=== PATIENT | male | born 1940 | race Caucasian/White ===

== ENCOUNTER 2019-07-26 08:39 | Inpatient (IN) ==
[2019-07-26 08:53] LABS: Microscopic, Urine URINE MICROSCOPIC (MICROSCOPIC)
--- NOTE | 2019-07-26 08:59 | Emergency Department Note ---
ED Disposition Clinical Impression: Small bowel obstruction Disposition: Admitted As Inpatient Condition on Discharge: Good Referrals: Ortiz Lockhart MD [Primary Care Provider] - - Critical Care Critical Care Time: No Attestation: On 07/26/19, the high probability of a clinically significant, sudden or life threatening deterioration of the following system(s) required my full and direct attention, intervention and personal management. The time I documented below is in addition to time spent performing reported procedures but includes the following listed in this critical care notation. Medical Decision Making - Medical Records Medical records reviewed: Yes: I reviewed the patient's medical records. - Robert Inquiry Pt receiving controlled substance: No Vital Signs: 07/26/19 08:46 07/26/19 08:50 07/26/19 11:18 Temperature 97.8 F 97.8 F Temperature Source Oral Oral Pulse Rate [Left Radial] 63 63 Respiratory Rate 16 16 Blood Pressure [Right Arm] 149/75 H 149/75 H 157/69 H Blood Pressure Mean [Right Arm] 99 99 98 Blood Pressure Source [Right Arm] Automatic Cuff Automatic Cuff Blood Pressure Position [Right Arm] Sitting Sitting Sitting 02 Sat by Pulse Oximetry 98 98 Oxygen Delivery Method Room Air Room Air - Lab Data Lab results reviewed: Yes: I reviewed the patient's lab results. Lab Results 07/26/19 08:49: Urine Color Yellow, Urine Appearance Clear, Urine pH 8.0, Ur Specific [place] 1.020, Urine Protein Negative, Urine Glucose (UA) Negative, Urine Ketones Negative, Urine Blood Negative, Urine Nitrate Negative, Urine Bilirubin Negative, Urine Urobilinogen 0.2, Ur Leukocyte Esterase Negative, Urine RBC None, Urine WBC None, Ur Squamous Epith Cells Occasional, Urine Bacteria Trace 07/26/19 09:20: WBC 5.4, RBC 4.31 L, Hgb 13.4 L, Hct 44.4, MCV 103.0 H, MCH 31.0, MCHC 30.1 L, RDW 15.5, Plt Count 271, MPV 7.7, Neut % (Auto) 55.9, Lymph % (Auto) 33.6, [place] % (Auto) 7.3, Eos % (Auto) 2.6, Baso % (Auto) 0.6, Neut # (Auto) 3.0, Lymph # (Auto) 1.8, [place] # (Auto) 0.4, Eos # (Auto) 0.1, Baso # (Auto) 0.0 07/26/19 09:20: Sodium 139, Potassium 4.1, Chloride 102, Carbon Dioxide 27, Anion Gap 14.1, BUN 19 H, Creatinine 1.07, Estimated Creat Clear 68, Estimated GFR 67, Est GFR ( Amer) 81, Glucose 143 H, Calcium 9.2, Total Bilirubin 0.5, AST 17, ALT 15, Alkaline Phosphatase 73, Total Protein 7.3, Albumin 3.8, Globulin 3.5 H, Albumin/Globulin Ratio 1.1 07/26/19 09:20: Lipase 117 07/26/19 10:23: Lactate 1.4 Result diagrams: 07/26/19 09:20 07/26/19 09:20 Orders (Tests/Meds): ED MEDICATIONS Discontinued Medications Generic Name Dose Route Start Last Admin Trade Name Freq PRN Reason Stop Dose Admin Hydromorphone HCl 1 mg 07/26/19 10:51 07/26/19 10:30 Dilaudid 2mg/Ml Syringe IV 07/26/19 10:52 1 mg ONCE ONE Administration Hydromorphone HCl 1 mg 07/26/19 11:51 07/26/19 11:20 Dilaudid 2mg/Ml Syringe IV 07/26/19 11:52 1 mg ONCE ONE Administration Sodium Chloride 1,000 mls @ 999 mls/hr 07/26/19 09:45 07/26/19 09:35 Sod Chlor 0.9% 1000ml Bag IV 07/26/19 10:45 999 mls/hr .Q1H1M BYRON Administration Ketorolac Tromethamine 30 mg 07/26/19 09:32 07/26/19 09:34 Toradol 30mg/Ml Vial IV 07/26/19 09:33 30 mg ONCE ONE Administration Ondansetron HCl 4 mg 07/26/19 09:32 07/26/19 09:34 Zofran 4mg/2ml Vial IV 07/26/19 09:33 4 mg ONCE ONE Administration Ondansetron HCl 4 mg 07/26/19 10:51 07/26/19 10:30 Zofran 4mg/2ml Vial IV 07/26/19 10:52 4 mg ONCE ONE Administration - CT Data CT Scan: Abdomen Time Received: 11:58 (+sbo) ED CT Reviewed: Yes: I have viewed the radiologist's interpretation Medical Decision Narrative: admit and treatment d/w Dr Jacobson General Adult HPI - General Chief complaint: Abdominal Pain Stated complaint: left side abd pain Time Seen by Provider: 07/26/19 08:56 Mode of Arrival: Ambulatory Source of Information: Patient Limitations: No Limitations Description of Symptoms (Recalled from ER Triage Doc. by RN): to ed per pvt car with c/o llq abd pain starting approx 7am today. pt denies any nausea, vomiting, diarrhea, fever, chills. - History of Present Illness HPI narrative: mild llq ache today, constant since 7am, no injury, no fever, no NV, no blood in stool, nonrad, hx htn, no dm, last meal yesterday, not on blood thinners, no previous GB or appendix surgery, hx left nephrectomy, aortic arch surgery and cervical neck surgery - Related Data Home Medications Medication Instructions Recorded Confirmed Amlodipine Besylate [Norvasc 10mg 10 mg PO DAILY 06/30/18 12/15/18 tablet] Aspirin [Aspir 81] 81 mg PO DAILY 06/30/18 12/15/18 Benazepril HCl 20 mg PO DAILY 06/30/18 12/15/18 Allergies Allergy/AdvReac Type Severity Reaction Status Date / Time No Known Allergies Allergy Verified 12/15/18 07:47 [facility] History - Hepatitis A Screen Drug use history?: No High risk sexual behaviors?: No History of sexually transmitted infection?: No Currently employed?: No Childcare worker?: No Do you have indoor plumbing?: Yes Do you have electricity?: Yes Attestation statement:: This patient has been screened for Hepatitis A risk factors. Medical History: Reports:: Aneurysm (Aortic), Cancer (Left Kidney Cancer), Hyperlipidemia, Hypertension Denies:: Diabetes Mellitus Type 1, Diabetes Mellitus Type 2, Internal Pacemaker, Lung Disease, Seizures Other Surgeries: Yes: Cancer Surgery (Left Nephrectomy, AAA Repair), Coronary Stent (upper aorta), Other (Aortic stenting, left nephrectomy). No: Pacemaker - Social History Smoking Status: Never smoker Alcohol Intake: current Alcohol Intake Frequency:: 3 or more drinks per day Occupational Status: other Family Hx:: Other (NA) ROS Obtained: Yes Systems reviewed as appropriate & no additional complaints - Constitutional Constitutional: Denies fever(s) - Eyes Eyes: Denies change in vision - ENT Ears, Nose, Mouth, and Throat: Denies neck pain - Cardiovascular Cardiovascular: Denies chest pain - Respiratory Respiratory: No dyspnea - Gastrointestinal Gastrointestingal: Reports: abdominal pain. Denies: vomiting - Genitourinary Male Genitourinary: Denies hematuria - Musculoskeletal Musculoskeletal: Denies back pain - Integumentary/Breasts Skin/Breast: Denies rash - Neurologic Neurologic: Denies dizziness, Denies headache(s) Physical Exam - General General appearance: alert - Head Head exam: normocephalic - Eye Eye exam: Present: PERRL, EOMI - ENT ENT exam: Present: mucous membranes moist - Neck Neck exam: Present: normal inspection - Chest Chest inspection: Present: normal inspection - Respiratory Respiratory exam: Present: normal lung sounds bilaterally - Cardiovascular Cardiovascular exam: Present: regular rate, normal rhythm - Abdominal Exam Abdominal exam: Present: soft, tenderness. Absent: rebound - Extremities Exam Extremities exam: Present: full ROM - Back Exam Back exam: Present: CVA tenderness (L) - Neurological Exam Neurological exam: Present: alert, oriented X3 - Psychiatric Psychiatric exam: Present: normal affect, normal mood - Skin Skin exam: Present: warm, dry
[2019-07-26 09:31] LABS: Appearance,Urine CLEAR (Clear); Bilirubin,Urine Negative (Negative); Blood, Urine Negative (Negative); Color,Urine YELLOW (Yellow); Glucose,Urine (UA) Negative (Negative); Ketones,Urine Negative (Negative); Leukocyte Esterase,Urine Negative (Negative); Protein,Urine Negative (Negative); Urobilinogen,Urine 0.2 EU/dl (0.2)
[2019-07-26 09:34] LABS: Basophils % 0.6 % (0.1-2.0); Eosinophils # 0.1 K/mm3 (0.0-0.4); Eosinophils % 2.6 % (0.1-12.0); Hematocrit 44.4 % (42.0-52.0); Hemoglobin 13.4 g/dL (14.1-18.0); Lymphocytes # 1.8 K/mm3 (0.7-4.5); Lymphocytes % 33.6 % (10-50); Mean Corpuscular HGB Conc 30.1 g/dL (31.8-35.4); Mean Platelet Volume 7.7 fl (7.4-10.4); Monocytes # 0.4 K/mm3 (0.1-1.0); Monocytes % 7.3 % (1.7-9.3); Neutrophils % 55.9 % (37.0-80.0); Platelet Count 271 K/mm3 (142-424); Red Blood Count 4.31 M/mm3 (4.60-6.20); Red Cell Distribution Width 15.5 % (11.5-17.5); White Blood Count 5.4 K/mm3 (4.8-10.8)
[2019-07-26 09:45] LABS: Bacteria,Urine Trace /lpf; Squamous Epithelial Cell,Urine Occasional #/hpf (0-5)
[2019-07-26 09:49] LABS: Albumin Level 3.8 gm/dL (3.4-5.0); Albumin/Globulin Ratio 1.1 (1.1-1.8); Anion Gap 14.1 mEq/L (5-15); Bilirubin,Total 0.5 mg/dL (0.2-1.0); Calcium 9.2 mg/dL (8.5-10.1); Globulin 3.5 gm/dl (1.3-3.2); Total Protein,Serum 7.3 gm/dL (6.4-8.2)
--- NOTE | 2019-07-26 14:39 | History & Physical Report ---
HPI HPI: This is a 79-year-old gentleman who presented to the emergency department this morning after acute onset abdominal pain after what he describes as a "normal bowel movement around 7:00". No nausea or vomiting. No fevers or chills. No melena. No bright red blood per rectum. He does have a documented history of diverticulosis and a history of colon polyps. As part of his evaluation in emergency department a CT scan was obtained and revealed changes consistent with likely small bowel obstruction with possible transition in the left lower quadrant. The CT scan was without IV or PO contrast. He states he "feels much better right now". [facility] History Medical History: Reports:: Aneurysm (Aortic), Cancer (Left Kidney Cancer), Hyperlipidemia, Hypertension Denies:: Diabetes Mellitus Type 1, Diabetes Mellitus Type 2, Internal Pacemaker, Lung Disease, Seizures *Have you ever received a pneumonia vaccine?: No *Have you received a flu vaccine this season?: No Other Surgeries: Yes: Cancer Surgery (Left Nephrectomy, AAA Repair), Coronary Stent (upper aorta), Other (Aortic stenting, left nephrectomy). No: Pacemaker - *Social History Smoking Status: Never smoker Alcohol Intake: current Alcohol Intake Frequency:: 3 or more drinks per day *Occupational Status:: other *Travel in the last 8 weeks: None Family Hx:: Other (NA) Review of Systems - Constitutional Denies chills - Eyes Denies change in vision - ENT Denies change in voice, Denies difficulty swallowing - *Cardiovascular Denies chest pain - *Respiratory Denies cough - *Gastrointestinal Reports abdominal pain, Denies bright, red blood in stools, Denies black, tarry stools, Denies nausea, Denies vomiting - *Genitourinary Denies painful urination - *Musculoskeletal Denies abnormal walking - Integumentary/Breasts Denies new lesions - *Neurologic Denies dizziness, Denies headache(s) - Psychiatric Denies anxiety - Endocrine Denies cold intolerance - Hematologic/Lymphatic Denies easy bleeding - Allergic/Immunologic Denies GI upset with certain foods Meds Home Medications Medication Instructions Recorded Confirmed Type Amlodipine Besylate [Norvasc 10mg 10 mg PO DAILY 06/30/18 12/15/18 History tablet] Aspirin [Aspir 81] 81 mg PO DAILY 06/30/18 12/15/18 History Benazepril HCl 20 mg PO DAILY 06/30/18 12/15/18 History Allergies Allergy/AdvReac Type Severity Reaction Status Date / Time No Known Allergies Allergy Verified 12/15/18 07:47 Exam Vital signs and Labs for Last 24 Hours: Temp Pulse Resp BP Pulse Ox 98.0 F 74 16 168/89 H 95 07/26/19 14:03 07/26/19 14:03 07/26/19 14:03 07/26/19 14:03 07/26/19 14:03 Laboratory Results - last 24 hr 07/26/19 08:49: Urine Color Yellow, Urine Appearance Clear, Urine pH 8.0, Ur Specific [place] 1.020, Urine Protein Negative, Urine Glucose (UA) Negative, Urine Ketones Negative, Urine Blood Negative, Urine Nitrate Negative, Urine Bilirubin Negative, Urine Urobilinogen 0.2, Ur Leukocyte Esterase Negative, Urine RBC None, Urine WBC None, Ur Squamous Epith Cells Occasional, Urine Bacteria Trace 07/26/19 09:20: WBC 5.4, RBC 4.31 L, Hgb 13.4 L, Hct 44.4, MCV 103.0 H, MCH 31.0, MCHC 30.1 L, RDW 15.5, Plt Count 271, MPV 7.7, Neut % (Auto) 55.9, Lymph % (Auto) 33.6, [place] % (Auto) 7.3, Eos % (Auto) 2.6, Baso % (Auto) 0.6, Neut # (Auto) 3.0, Lymph # (Auto) 1.8, [place] # (Auto) 0.4, Eos # (Auto) 0.1, Baso # (Auto) 0.0 07/26/19 09:20: Sodium 139, Potassium 4.1, Chloride 102, Carbon Dioxide 27, Anion Gap 14.1, BUN 19 H, Creatinine 1.07, Estimated Creat Clear 68, Estimated GFR 67, Est GFR ( Amer) 81, Glucose 143 H, Calcium 9.2, Total Bilirubin 0.5, AST 17, ALT 15, Alkaline Phosphatase 73, Total Protein 7.3, Albumin 3.8, Globulin 3.5 H, Albumin/Globulin Ratio 1.1 07/26/19 09:20: Lipase 117 07/26/19 10:23: Lactate 1.4 I & O for Last 24 hours: Intake & Output 10/09/0107/25/19 07/26/19 07/27/19 11:59 11:59 11:59 11:59 Weight 185 lb 186 lb 2 oz - Constitutional no acute distress - *Routine HEENT Exam Head: Present: normocephalic, atraumatic - *Routine Neck Exam Present: full ROM - Routine Chest/Breast/Axilla Exam Chest wall: Absent: tenderness - *Routine Respiratory Exam Absent: respiratory distress - *Routine Cardiovascular Exam Present: RRR - *Routine Abdominal Exam Present: soft, tenderness. Absent: distended, guarding Comments: Tenderness to deep palpation of left lower quadrant - *Routine Extremities Exam Present: full ROM. Absent: cyanosis, clubbing, edema - Routine Back/Spine/Pelvis Exam Back/Spine: Absent: full ROM - *Routine Skin Exam Present: intact - *Routine Neurological Exam Present: alert, oriented X3 - Routine Psychiatric Exam Present: normal affect Results - Results Lab Results Last 24 Hours:: Laboratory Results - last 24 hr 07/26/19 08:49: Urine Color Yellow, Urine Appearance Clear, Urine pH 8.0, Ur Specific [place] 1.020, Urine Protein Negative, Urine Glucose (UA) Negative, Urine Ketones Negative, Urine Blood Negative, Urine Nitrate Negative, Urine Bilirubin Negative, Urine Urobilinogen 0.2, Ur Leukocyte Esterase Negative, Urine RBC None, Urine WBC None, Ur Squamous Epith Cells Occasional, Urine Bacteria Trace 07/26/19 09:20: WBC 5.4, RBC 4.31 L, Hgb 13.4 L, Hct 44.4, MCV 103.0 H, MCH 31.0, MCHC 30.1 L, RDW 15.5, Plt Count 271, MPV 7.7, Neut % (Auto) 55.9, Lymph % (Auto) 33.6, [place] % (Auto) 7.3, Eos % (Auto) 2.6, Baso % (Auto) 0.6, Neut # (Auto) 3.0, Lymph # (Auto) 1.8, [place] # (Auto) 0.4, Eos # (Auto) 0.1, Baso # ( Auto) 0.0 07/26/19 09:20: Sodium 139, Potassium 4.1, Chloride 102, Carbon Dioxide 27, Anion Gap 14.1, BUN 19 H, Creatinine 1.07, Estimated Creat Clear 68, Estimated GFR 67, Est GFR ( Amer) 81, Glucose 143 H, Calcium 9.2, Total Bilirubin 0.5, AST 17, ALT 15, Alkaline Phosphatase 73, Total Protein 7.3, Albumin 3.8, Globulin 3.5 H, Albumin/Globulin Ratio 1.1 07/26/19 09:20: Lipase 117 07/26/19 10:23: Lactate 1.4 CT scan - abdomen: report reviewed, image reviewed CT scan - pelvis: report reviewed, image reviewed Assessment and Plan (1) Small bowel obstruction Current visit: Yes Status: Acute Category: Medical Code(s): K56.609 - Unspecified intestinal obstruction, unspecified as to partial versus complete obstruction The patient had a normal bowel movement this morning. He is in much less pain currently and does not have any signs of peritonitis. He does have some radiographic changes consistent with likely small bowel obstruction; however, his history and exam are not definitively concordant. NPO/IV fluids Serial abdominal exams Flat and upright films in morning Possible repeat CT with IV and PO contrast. Consideration of small bowel series.
[2019-07-27 06:12] LABS: Anion Gap 10.6 mEq/L (5-15); Calcium 8.3 mg/dL (8.5-10.1)
[2019-07-27 06:14] LABS: Basophils % 0.5 % (0.1-2.0); Eosinophils # 0.2 K/mm3 (0.0-0.4); Hematocrit 41.9 % (42.0-52.0); Hemoglobin 12.4 g/dL (14.1-18.0); Lymphocytes # 1.7 K/mm3 (0.7-4.5); Mean Corpuscular HGB Conc 29.7 g/dL (31.8-35.4); Mean Corpuscular Volume 104.1 fl (80-94); Mean Platelet Volume 7.9 fl (7.4-10.4); Monocytes # 0.5 K/mm3 (0.1-1.0); Monocytes % 8.7 % (1.7-9.3); Neutrophils # 3.8 K/mm3 (1.8-7.8); Neutrophils % 60.8 % (37.0-80.0); Platelet Count 220 K/mm3 (142-424); Red Blood Count 4.03 M/mm3 (4.60-6.20); Red Cell Distribution Width 15.5 % (11.5-17.5); White Blood Count 6.2 K/mm3 (4.8-10.8)
--- NOTE | 2019-07-27 07:43 | Pharmacy Consult Notes ---
[facility] Pharmacy VTE Monitoring - Patient Demographics Admission date: 07/26/19 Report Date: 07/27/19 Time: 07:43 Allergies/Adverse Reactions: Patient Allergies No Known Allergies Allergy (Verified 12/15/18 07:47) Height: 1.85 m Weight: 85.474 kg Patient Problems: Current Active Problems Small bowel obstruction (Acute) - VTE Risk Labs: VTE Related Lab Results Hgb 12.4 g/dL (14.1-18.0) L 07/27/19 05:35 Hct 41.9 % (42.0-52.0) L 07/27/19 05:35 Plt Count 220 K/mm3 (142-424) 07/27/19 05:35 BUN 14 mg/dL (7-18) D 07/27/19 05:35 Creatinine 0.91 mg/dL (0.70-1.30) 07/27/19 05:35 Estimated Creat Clear 74 mL/min (50-200) 07/27/19 05:35 VTE Score: 3 VTE Risk Level: Low Risk - Prophylaxis VTE Prophylaxis Ordered?: Yes Types of VTE Prophylaxis: TEDS Knee High Location of Applied Device: Bilateral Lower Extremeties - VTE Diagnosis Confirmed Treatment or plan recommended: Continue Current Treatment
--- NOTE | 2019-07-27 08:16 | Progress Note ---
Subjective Patient reports: feels better, pain is less Narrative: He did have some increased pain yesterday afternoon with a dose of Toradol that "did not help much". A dose of morphine significantly helped and he states that he is "not needed anything since". He states that his pain is "much better this morning". He has yet to have a bowel movement this a.m. He did have a normal bowel movement yesterday morning. Exam Vital signs and Labs for Last 24 Hours: Temp Pulse Resp BP Pulse Ox 98.4 F 69 17 153/77 H 97 07/27/19 04:00 07/27/19 04:00 07/27/19 04:00 07/27/19 04:00 07/27/19 04:00 Laboratory Results - last 24 hr 07/26/19 08:49: Urine Color Yellow, Urine Appearance Clear, Urine pH 8.0, Ur Specific [place] 1.020, Urine Protein Negative, Urine Glucose (UA) Negative, Urine Ketones Negative, Urine Blood Negative, Urine Nitrate Negative, Urine Bilirubin Negative, Urine Urobilinogen 0.2, Ur Leukocyte Esterase Negative, Urine RBC None, Urine WBC None, Ur Squamous Epith Cells Occasional, Urine Bacteria Trace 07/26/19 09:20: WBC 5.4, RBC 4.31 L, Hgb 13.4 L, Hct 44.4, MCV 103.0 H, MCH 31.0, MCHC 30.1 L, RDW 15.5, Plt Count 271, MPV 7.7, Neut % (Auto) 55.9, Lymph % (Auto) 33.6, [place] % (Auto) 7.3, Eos % (Auto) 2.6, Baso % (Auto) 0.6, Neut # (Auto) 3.0, Lymph # (Auto) 1.8, [place] # (Auto) 0.4, Eos # (Auto) 0.1, Baso # (Auto) 0.0 07/26/19 09:20: Sodium 139, Potassium 4.1, Chloride 102, Carbon Dioxide 27, Anion Gap 14.1, BUN 19 H, Creatinine 1.07, Estimated Creat Clear 68, Estimated GFR 67, Est GFR ( Amer) 81, Glucose 143 H, Calcium 9.2, Total Bilirubin 0.5, AST 17, ALT 15, Alkaline Phosphatase 73, Total Protein 7.3, Albumin 3.8, Globulin 3.5 H, Albumin/Globulin Ratio 1.1 07/26/19 09:20: Lipase 117 07/26/19 10:23: Lactate 1.4 07/27/19 05:35: WBC 6.2, RBC 4.03 L, Hgb 12.4 L, Hct 41.9 L, MCV 104.1 H, MCH 30.9, MCHC 29.7 L, RDW 15.5, Plt Count 220, MPV 7.9, Neut % (Auto) 60.8, Lymph % (Auto) 27.0, [place] % (Auto) 8.7, Eos % (Auto) 3.0, Baso % (Auto) 0.5, Neut # (Auto) 3.8, Lymph # (Auto) 1.7, [place] # (Auto) 0.5, Eos # (Auto) 0.2, Baso # (Auto) 0.0 07/27/19 05:35: Sodium 140, Potassium 3.6, Chloride 106, Carbon Dioxide 27, Anion Gap 10.6, BUN 14 D, Creatinine 0.91, Estimated Creat Clear 74, Estimated GFR 81, Est GFR ( Amer) 97, Glucose 108 H D, Calcium 8.3 L I & O for Last 24 hours: Intake & Output 07/24/19 07/25/19 07/26/19 07/27/19 11:59 11:59 11:59 11:59 Intake Total 1618 / 1618 Balance 1618 / 1618 Weight 185 lb 188 lb 7 oz - Constitutional no acute distress - *Routine Respiratory Exam Absent: respiratory distress - *Routine Cardiovascular Exam Present: RRR - *Routine Abdominal Exam Present: soft. Absent: distended Comments: Less tender Progress Note: A&P (1) Small bowel obstruction Status: Acute Assessment and plan: continue serial exams f/u pending films Current Visit: Yes
--- NOTE | 2019-07-27 13:04 | Progress Note ---
Internal Medicine - PN: Subj *Date: 07/27/19 *Time: 13:01 Interval history: Patient seen and examined this morning. Discussed case with Dr. Jacobson. He is feeling much better. All he only complains of some soreness in the left lower quadrant. He has not had a bowel movement since admission. No nausea or vomiting. Note that his blood pressure has been elevated. He also reports consistently elevated readings at home. Exam Vital signs and Labs for Last 24 Hours: Temp Pulse Resp BP Pulse Ox 97.7 F 74 17 162/84 H 98 07/27/19 08:00 07/27/19 08:00 07/27/19 08:00 07/27/19 08:00 07/27/19 08:00 Laboratory Results - last 24 hr 07/27/19 05:35: WBC 6.2, RBC 4.03 L, Hgb 12.4 L, Hct 41.9 L, MCV 104.1 H, MCH 30.9, MCHC 29.7 L, RDW 15.5, Plt Count 220, MPV 7.9, Neut % (Auto) 60.8, Lymph % (Auto) 27.0, [place] % (Auto) 8.7, Eos % (Auto) 3.0, Baso % (Auto) 0.5, Neut # (Auto) 3.8, Lymph # (Auto) 1.7, [place] # (Auto) 0.5, Eos # (Auto) 0.2, Baso # (Auto) 0.0 07/27/19 05:35: Sodium 140, Potassium 3.6, Chloride 106, Carbon Dioxide 27, Anion Gap 10.6, BUN 14 D, Creatinine 0.91, Estimated Creat Clear 74, Estimated GFR 81, Est GFR ( Amer) 97, Glucose 108 H D, Calcium 8.3 L I & O for Last 24 hours: Intake & Output 07/25/19 07/26/19 07/27/19 07/28/19 11:59 11:59 11:59 11:59 Intake Total 1618 / 1618 Balance 1618 / 1618 Weight 185 lb 188 lb 7 oz Narrative: He is lying comfortably in bed. He appears in no distress. Lungs are clear to auscultation. Heart is regular. Abdomen is soft and nondistended with no unusual masses. There is minimal left lower quadrant tenderness. Extremities no edema. Assessment and Plan (1) Small bowel obstruction Current visit: Yes Status: Acute Category: Medical Code(s): K56.609 - Unspecified intestinal obstruction, unspecified as to partial versus complete obstruction (2) Hypertension Current visit: Yes Status: Acute Category: Medical Code(s): I10 - Essential (primary) hypertension - Assessment and plan all Dx Assessment and Plan for all problems:: We will follow with surgery. He had a repeat CT scan with contrast this morning which is pending. We will monitor his blood pressure closely and determine if he needs additional treatment.
[2019-07-28 06:13] LABS: Basophils # 0.1 K/mm3 (0-0.2); Basophils % 0.9 % (0.1-2.0); Eosinophils # 0.4 K/mm3 (0.0-0.4); Eosinophils % 6.8 % (0.1-12.0); Hematocrit 44.9 % (42.0-52.0); Hemoglobin 13.5 g/dL (14.1-18.0); Lymphocytes # 1.8 K/mm3 (0.7-4.5); Lymphocytes % 35.1 % (10-50); Mean Corpuscular Volume 103.7 fl (80-94); Mean Platelet Volume 7.8 fl (7.4-10.4); Monocytes # 0.4 K/mm3 (0.1-1.0); Monocytes % 7.8 % (1.7-9.3); Neutrophils # 2.5 K/mm3 (1.8-7.8); Neutrophils % 49.3 % (37.0-80.0); Platelet Count 226 K/mm3 (142-424); Red Blood Count 4.33 M/mm3 (4.60-6.20); Red Cell Distribution Width 15.5 % (11.5-17.5); White Blood Count 5.2 K/mm3 (4.8-10.8)
[2019-07-28 06:26] LABS: Anion Gap 12.8 mEq/L (5-15); Calcium 8.8 mg/dL (8.5-10.1)
--- NOTE | 2019-07-28 06:59 | Progress Note ---
Subjective Patient reports: no new complaints, feels better, no bowel movement Exam Vital signs and Labs for Last 24 Hours: Temp Pulse Resp BP Pulse Ox 98.2 F 69 17 150/91 H 97 07/28/19 04:00 07/28/19 04:00 07/28/19 04:00 07/28/19 04:00 07/28/19 04:00 Laboratory Results - last 24 hr 07/28/19 05:35: WBC 5.2, RBC 4.33 L, Hgb 13.5 L, Hct 44.9, MCV 103.7 H, MCH 31.2, MCHC 30.0 L, RDW 15.5, Plt Count 226, MPV 7.8, Neut % (Auto) 49.3, Lymph % (Auto) 35.1, [place] % (Auto) 7.8, Eos % (Auto) 6.8, Baso % (Auto) 0.9, Neut # (Auto) 2.5, Lymph # (Auto) 1.8, [place] # (Auto) 0.4, Eos # (Auto) 0.4, Baso # (Auto) 0.1 07/28/19 05:35: Sodium 141, Potassium 3.8, Chloride 106, Carbon Dioxide 26, Anion Gap 12.8, BUN 8 D, Creatinine 0.84, Estimated Creat Clear 73, Estimated GFR 88, Est GFR ( Amer) 107, Glucose 89, Calcium 8.8 I & O for Last 24 hours: Intake & Output 07/25/19 07/26/19 07/27/19 07/28/19 11:59 11:59 11:59 11:59 Intake Total 1618 / 1618 3164 / 3164 Balance 1618 / 1618 3164 / 3164 Weight 185 lb 188 lb 7 oz 186 lb - Constitutional no acute distress - *Routine Respiratory Exam Absent: respiratory distress - *Routine Cardiovascular Exam Present: RRR - *Routine Abdominal Exam Present: soft. Absent: tenderness, distended Progress Note: A&P (1) Small bowel obstruction Status: Acute Assessment and plan: No evidence of obstruction or other acute abnormality noted on yesterday's CT scan. Today's plain films reveal a large amount of contrast within the colon a nd no definitive abnormality. The patient is essentially asymptomatic. Discharge home today with close outpatient follow-up. Note: The patient wishes to discuss repeat CT scan of the chest for ongoing evaluation of small pulmonary nodule with his primary care provider. Current Visit: Yes (2) Hypertension Status: Acute Current Visit: Yes
--- NOTE | 2019-07-28 07:03 | Discharge Summary ---
General - General Admission date:: 07/26/19 Discharge date: 07/28/19 HPI HPI: This is a 79-year-old gentleman who presented to the emergency department this morning after acute onset abdominal pain after what he describes as a "normal bowel movement around 7:00". No nausea or vomiting. No fevers or chills. No melena. No bright red blood per rectum. He does have a documented history of diverticulosis and a history of colon polyps. As part of his evaluation in emergency department a CT scan was obtained and revealed changes consistent with likely small bowel obstruction with possible transition in the left lower quadrant. The CT scan was without IV or PO contrast. Hospital Course Hospital Course: The patient convalesced well. His abdominal pain continued to improve throughout his hospitalization. Follow-up CT scan with IV and PO contrast revealed no sign of obstruction and no acute abnormality. Plain films of the abdomen on the day of discharge revealed a large amount of contrast within the colon. No obvious abnormality was noted. He remained afebrile with stable and normal vital signs and was deemed appropriate for discharge with close outpatient follow-up on July 28, 2019. Note: The patient's CT scan did reveal a small pulmonary nodule with recommendations for 6-month follow-up. The patient stated that he wished to discuss ongoing follow-up with regard to these findings with his primary care provider. Objective Vital signs: Temp Pulse Resp BP Pulse Ox 98.2 F 69 17 150/91 H 97 07/28/19 04:00 07/28/19 04:00 07/28/19 04:00 07/28/19 04:00 07/28/19 04:00 no acute distress - *Routine HEENT Exam Head: Present: normocephalic, atraumatic - *Routine Neck Exam Present: full ROM - Routine Chest/Breast/Axilla Exam Chest wall: Absent: tenderness - *Routine Respiratory Exam Absent: respiratory distress - *Routine Cardiovascular Exam Present: RRR - *Routine Abdominal Exam Present: soft. Absent: distended - *Routine Extremities Exam Present: full ROM. Absent: cyanosis, clubbing, edema - Routine Back/Spine/Pelvis Exam Back/Spine: Present: full ROM - *Routine Skin Exam Present: intact - *Routine Neurological Exam Present: alert, oriented X3 - Routine Psychiatric Exam Present: normal affect Results Labs on day of discharge: Labs from last 24 hours 07/28/19 07/28/19 05:35 05:35 WBC 5.2 RBC 4.33 L Hgb 13.5 L Hct 44.9 MCV 103.7 H MCH 31.2 MCHC 30.0 L RDW 15.5 Plt Count 226 MPV 7.8 Neut % (Auto) 49.3 Lymph % (Auto) 35.1 [place] % (Auto) 7.8 Eos % (Auto) 6.8 Baso % (Auto) 0.9 Neut # (Auto) 2.5 Lymph # (Auto) 1.8 [place] # (Auto) 0.4 Eos # (Auto) 0.4 Baso # (Auto) 0.1 Sodium 141 Potassium 3.8 Chloride 106 Carbon Dioxide 26 Anion Gap 12.8 BUN 8 D Creatinine 0.84 Estimated Creat Clear 73 Estimated GFR 88 Est GFR ( Amer) 107 Glucose 89 Calcium 8.8 - Imaging and Cardiology CT scan - abdomen Status: image reviewed by me, final report Abdominal x-ray Status: image reviewed by me, final report DS: Diagnosis - Discharge Diagnosis (1) Small bowel obstruction Status: Acute Problem details: Changes consistent with obstruction noted on initial CT scan without contrast. Follow-up CT scan with contrast revealed no changes consistent with obstruction and no acute abnormality. (2) Hypertension Status: Acute (3) Pulmonary nodule Status: Acute Problem details: Repeat CT scan as per radiology recommendations (the patient wishes to discuss this with his primary care provider). Discharge Plan - Patient Discharge Instructions ACTIVITY: Continue current activity, Ambulate as tolerated DIET: advance to your usual diet Patient Instructions: DI for Acute Abdomen - Follow up Plan Follow up with: Bryan Jacobson MD [Staff Physician] - 2 weeks Disposition: Home, Self-Usp Medications: Home Medications Medication Instructions Recorded Confirmed Type Amlodipine Besylate [Norvasc 10mg 10 mg PO DAILY 06/30/18 07/26/19 History tablet] Aspirin [Aspir 81] 81 mg PO DAILY 06/30/18 07/26/19 History Benazepril HCl 20 mg PO DAILY 06/30/18 07/26/19 History Prescriptions/Medication Reconciliation: Continued Benazepril HCl 20 mg PO DAILY Aspirin [Aspir 81] 81 mg PO DAILY Amlodipine Besylate [Norvasc 10mg tablet] 10 mg PO DAILY - Problem Reconciliation Problems Reviewed?: Yes
--- NOTE | 2019-07-28 17:58 | Progress Note ---
Internal Medicine - PN: Subj *Date: 07/28/19 *Time: 08:30 Interval history: He had a good night. He has been seen by Dr. Jacobson and follow-up x-rays this morning were normal. He is being discharged. Exam Vital signs and Labs for Last 24 Hours: Temp Pulse Resp BP Pulse Ox 97.9 F 69 18 143/84 H 96 07/28/19 09:02 07/28/19 09:02 07/28/19 09:02 07/28/19 09:02 07/28/19 09:02 Laboratory Results - last 24 hr 07/28/19 05:35: WBC 5.2, RBC 4.33 L, Hgb 13.5 L, Hct 44.9, MCV 103.7 H, MCH 31.2, MCHC 30.0 L, RDW 15.5, Plt Count 226, MPV 7.8, Neut % (Auto) 49.3, Lymph % (Auto) 35.1, [place] % (Auto) 7.8, Eos % (Auto) 6.8, Baso % (Auto) 0.9, Neut # (Auto) 2.5, Lymph # (Auto) 1.8, [place] # (Auto) 0.4, Eos # (Auto) 0.4, Baso # (Auto) 0.1 07/28/19 05:35: Sodium 141, Potassium 3.8, Chloride 106, Carbon Dioxide 26, Anion Gap 12.8, BUN 8 D, Creatinine 0.84, Estimated Creat Clear 73, Estimated GFR 88, Est GFR ( Amer) 107, Glucose 89, Calcium 8.8 I & O for Last 24 hours: Intake & Output 07/26/19 07/27/19 07/28/19 07/29/19 11:59 11:59 11:59 11:59 Intake Total 1618 / 1618 3164 / 3164 Balance 1618 / 1618 3164 / 3164 Weight 185 lb 188 lb 7 oz 186 lb Assessment and Plan (1) Small bowel obstruction Problem details: Changes consistent with obstruction noted on initial CT scan without contrast. Follow-up CT scan with contrast revealed no changes consistent with obstruction and no acute abnormality. Status: Acute Category: Medical Code(s): K56.609 - Unspecified intestinal obstruction, unspecified as to partial versus complete obstruction (2) Hypertension Status: Acute Category: Medical Code(s): I10 - Essential (primary) hypertension (3) Pulmonary nodule Problem details: Repeat CT scan as per radiology recommendations (the patient wishes to discuss this with his primary care provider). Status: Acute Category: Medical Code(s): R91.1 - Solitary pulmonary nodule - Assessment and plan all Dx Assessment and Plan for all problems:: His blood pressure has been consistently elevated since admission even after his acute pain resolved. He also reports elevated readings at home. In addition to his current blood pressure regimen, he will be discharged home on hydrochlorothiazide 12.5 mg daily. He will be followed-up with an office to recheck his blood pressure in about 6 weeks.
== END 2019-07-28 09:28 | disposition home or self-care (01) | DRG 390 ==
LOC: 2ND 08:39 → ER 08:39 → OBSVTOIN 12:56 → 2ND 13:57
PROVIDERS: ADMIT Surgery; ATTEND Surgery
CPT/HCPCS: 36415; 74021; 74022; 74176; 74177; 80048; 80053; 81001; 83605; 83690; 85025; 90686; 96366; 96374; 96375; 99284; J2405; Q9967

== ENCOUNTER → 2020-04-15 14:15 | Outpatient (CLI) | payer MEDICARE, SELFPAY ==
--- NOTE | 2020-04-15 14:20 | CT_ITS ---
PROCEDURE: CT CHEST WO/W CON CLINCAL INDICATION: PULMONARY NODULE SEEN ON CXR Follow-up pulmonary nodule COMPARISON: CT ABDOMEN PELVIS W CON from 07/27/2019 TECHNIQUE: IV Contrast: 75ml Optiray 350 Axial images obtained with sagittal and coronal reformats. All CT scans at the facility use one or more dose reduction, viz: automated exposure control, ma/kV adjustment per patient size (including targeted exams where dose is matched to indication, i.e. head), or iterative reconstruction technique. FINDINGS: HEART AND MEDIASTINAL STRUCTURES: There has been a prior stent graft placed within the thoracic aorta at the aortic arch area. There are no previous exams available to compare this to. The stent graft begins just distal to the origin of the left carotid artery. 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 CT aortogram may confirm this finding. Along the inferior aspect of the aortic arch there is focal saccular dilatation of the aorta with calcified wall. The aorta at this region measures 4 cm in diameter. No evidence of aortic dissection. No mediastinal or hilar mass or adenopathy. Coronary artery calcifications are present in there is prominent calcification along the mitral valve annulus inferiorly and inferior aspect of the left ventricle posteriorly. LUNGS AND PLEURAL SPACES: There remains nodularity along the left lower lobe posteriorly. There are 4 nodular densities in this region which are noncalcified and range in size from 4 mm to 7 mm. These are subpleural in nature. These areas appear slightly more prominent than when compared to the previous abdomen CT. No new nodules are evident. No effusions or infiltrates. BONY STRUCTURES: Degenerative changes. There is mild wedging involving the T12 vertebral body with loss of height centrally of approximately 40 percent. UPPER ABDOMEN: Prior left nephrectomy ADDITIONAL FINDINGS: No other significant abnormalities. IMPRESSION: 1. The nodularity in the left lung base does appear slightly more prominent compared to the previous exam. Neoplastic process is a consideration and could be primary or metastatic in this patient that has had a prior left nephrectomy. These areas however remain fairly small. A CT directed fine-needle aspiration would be difficult. Suggest PET-CT for further evaluation. If this is not performed then, would at least recommend an additional six-month follow-up. If the patient has older chest CTs then, it would be helpful to compare them. There are none available at this institution. If old films are made available, then an addendum may be given. 2. Prior stent graft placement of the thoracic aorta at the aortic arch with saccular dilatation of the aortic arch at 4 cm. 3. 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 Dictated by: Henry Ortiz MD 04/16/2020 11:18 Electronically signed by Henry Ortiz MD in [place] 04/16/2020 11:18
== END ==
PROVIDERS: PCP Family Medicine; Visit Provider Family Medicine
DX: R91.1 Solitary pulmonary nodule (principal)
CPT/HCPCS: 71270; Q9967

== ENCOUNTER → 2020-06-04 08:41 | Outpatient (CLI) | payer MEDICARE, SELFPAY ==
[2020-06-04 09:31] LABS: Coronavirus 19 IgG Antibody Negative (Negative); Coronavirus 19 IgM Antibody Negative (Negative)
== END ==
PROVIDERS: Visit Provider Internal Medicine Gastroenterology
DX: Z01.818 Encounter for other preprocedural examination (principal); Z12.11 Encounter for screening for malignant neoplasm of colon; Z86.010 Personal history of colon polyps
CPT/HCPCS: 36415; 86328

== ENCOUNTER 2020-06-06 07:23 | Day surgery (SDC) | payer MEDICARE, SELFPAY ==
[2020-05-31 11:48] VITALS: BMI 24.4
[2020-06-06] VITALS (7 sets, daily range): BP systolic 87–139; BP diastolic 45–84; PULSE 52–84; RESP 18; TEMP 36.1–37; O2SAT 96–100
--- NOTE | 2020-06-06 07:58 | P.PN_ITS ---
[facility] Anesthesia Checklist - Patient Identification Patient Identification: Arm Band, Verbal (Name & ) - Structural Data Admitted From: Home Planned Operative Procedure/s: Colonoscopy Consent for Planned Operative Procedure(s) Verified: Yes Verified Documents: Surgical Consent, History and Physical - NPO Status Verified Time NPO: 00:00 - Chart Verification Results Verified: None - Additional verifications Anesthesia Reactions: No - Airway Assessment C-Spine Mobility Assessed: Yes TMJ Mobility Assessed: Yes Dentition: Good Dentition - Neurological Assessment Level of Consciousness: Awake, Alert, Appropriate, Follows Commands Hx Seizures: No Numbness or tingling in extremities: No - Anesthesia Plan Anesthesia Risk discussed: Yes Anesthesia Plan: Verified ASA Class: III Anesthesia Type: MAC [facility] History I have reviewed the patient's past medical history: Yes Medical History: Reports:: Aneurysm (Aortic arch aneurysm, endovascular stenting performed), Cancer, Hyperlipidemia, Hypertension Denies:: Diabetes Mellitus Type 1, Diabetes Mellitus Type 2, Internal Pacemaker, Lung Disease, MRSA, Seizures *Have you ever received a pneumonia vaccine?: Yes *Have you received a flu vaccine this season?: Yes Anesthesia experience/problems:: no prior complications Other Surgeries: Yes: Cancer Surgery (Left Nephrectomy, AAA Repair), Cardiac Catheterization, Colonoscopy, Coronary Stent, Other. No: Pacemaker Amputation: No Fractures: No - *Social History Last grade of school completed: Advanced degree Smoking Status: Never smoker Alcohol Intake: current Alcohol Intake Frequency:: 3 or more drinks per day Substance Use Type: denies use *Occupational Status:: employed Housing: house Household Members: spouse *Travel in the last 8 weeks: None Family Hx:: Stroke, Other
--- NOTE | 2020-06-06 08:00 | HMH.PROC ---
[facility] Procedure Note Procedure Note:: Colonoscopy Procedure Report: Colonoscopy with cold snare polypectomy and APC ablation Endoscopist: Juan C Leonard II, MD Referring physician: Zurdo Lockhart MD Date of Procedure: June 06, 2020 Equipment: Olympus 180 variable stiffness pediatric colonoscope Sedation: MAC sedation Indication: Mr. Butterfield is a 80-year-old gentleman with a history of multiple large adenomatous polyps of the right colon that have been more advanced in the past. He did originally see me in June 2018 because of a positive Cologuard test. He had a prior normal colonoscopy in 2009. At the time of his colonoscopy in July 11, 2018, he did have a 30 mm polyp and a 22 mm polyp both of which were in the ascending colon. He had a repeat surveillance colonoscopy in December 2018 and had right-sided adenomatous polyps x5 (that ranges in size from 18 to 25 mm). The patient has done well and takes Konsyl daily. He reports no abdominal pain, weight loss, change in his bowel habits or rectal bleeding. He reports no family history of colon cancer. He does state that 6 months ago he presented to the hospital with left lower quadrant abdominal pain. His CAT scan showed bowel obstruction initially. A repeat scan the following day showed resolution of this. Procedure: Prior to the procedure, a history and physical exam was performed, and patient's medications and allergies were reviewed. The risks, benefits and alternatives of the sedation and procedure were discussed with the patient. All questions were answered and informed consent was obtained. The patient was brought to the procedure room. Patient identification and proposed procedure were verified by the physician and the nurse. The patient was placed in a left lateral decubitus position and the scope was passed under direct vision. Throughout the procedure, the patient's blood pressure, pulse, and oxygen saturations were monitored continuously. The colonoscopy was accomplished without difficulty. The patient tolerated the procedure well. Findings: On digital rectal examination there was normal rectal tone. There were no external hemorrhoids. The prostate was 2+, moderately firm but symmetric without nodules. The colonoscope was introduced through the anal canal to the rectum and advanced to the cecum. The ileocecal valve and appendiceal orifice were identified. The scope was advanced a short distance into the ileum which appeared grossly normal. The scope was then withdrawn into the colon. There was a 13 mm cecal polyp. This appeared to be a tubular adenoma and was removed via cold snare polypectomy. There were 3 polyps in the ascending colon with a mucous cap indicative of serrated adenomas x3. These were 12, 15 and 19 mm and all were removed via cold snare polypectomy. There was a single polyp in the transverse colon (6 mm) which was removed via cold snare polypectomy. The APC (argon plasma regulatory compliance coordinator) was utilized to coagulate the polypectomy sites of all polyps in the cecum and ascending colon. There were extensive scattered diverticuli throughout the descending and sigmoid colon (LEFT colon). The rectum itself was normal. Upon retroflexion within the rectum there were grade 1-2 internal hemorrhoids. The preparation was excellent throughout with [place] Preparation Score of 9. The cecal time was 20 minutes. Impression: 1. Cecal polyp x1 (13 mm?tubular adenoma) 2. Ascending polyps x3 (probable serrated adenomas x3 ranging in size from 12 to 19 mm) 3. Transverse polyp x1 (6 mm) 4. Extensive left-sided diverticulosis 5. Grade 1-2 internal hemorrhoids Plan: I did do APC ablation of the polypectomy sites in the cecum and ascending colon. These still represent more advanced adenomatous polyps and I do feel strongly that continuing surveillance at shorter interval (1 year) is warranted based upon the size and nature of these polyps. I will discuss the findings with th
== END 2020-06-06 09:33 | disposition home or self-care (01) ==
LOC: OUTP 07:24
PROVIDERS: PCP Family Medicine; Visit Provider Internal Medicine Gastroenterology
PROC: 0DJD8ZZ Inspection of Lower Intestinal Tract, Via Natural or Artificial Opening Endoscopic (ICD-10-PCS; CPT 45378; principal; 2020-06-06 08:30)
DX: Z12.11 Encounter for screening for malignant neoplasm of colon (principal); Z86.010 Personal history of colon polyps; K63.5 Polyp of colon; K57.30 Diverticulosis of large intestine without perforation or abscess without bleeding; K64.0 First degree hemorrhoids; E78.5 Hyperlipidemia, unspecified; I10 Essential (primary) hypertension; I71.4 Abdominal aortic aneurysm, without rupture; Z95.818 Presence of other cardiac implants and grafts; Z79.82 Long term (current) use of aspirin; Z79.899 Other long term (current) drug therapy
CPT/HCPCS: 45385; 45388; 88305; C2618

== ENCOUNTER → 2020-07-18 12:38 | Outpatient (CLI) | payer MEDICARE, SELFPAY ==
--- NOTE | 2020-07-18 12:38 | CT_ITS ---
PROCEDURE: CT CHEST WO CON CLINICAL INDICATION: Lung nodule followup prior 04/15/20 COMPARISON: CT CT ABDOMEN PELVIS WO CON from 07/26/[address] ABDOMEN PELVIS W CON from 07/27/[address] CHEST WO/W CON from 04/15/2020 TECHNIQUE: Axial images obtained with sagittal and coronal reformats. All CT scans at the facility use one or more dose reduction, viz: automated exposure control, ma/kV adjustment per patient size (including targeted exams where dose is matched to indication, i.e. head), or iterative reconstruction technique. FINDINGS: HEART AND MEDIASTINAL STRUCTURES: Is an aortic stent graft present. There is focal dilatation the aortic arch in the mid aspect of the graft measuring 3.8 cm in AP dimension. This is similar when compared to the previous exam. Coronary artery calcifications are present. There are also calcifications of the mitral valve annulus. LUNGS AND PLEURAL SPACES: Small cluster of nodules once again noted in the left lower lobe posterior laterally. The largest nodule measures approximately 7 mm and is not significantly changed. An additional cyst 6-7 mm nodules present in the subpleural region in this area not significantly changed. There is a small nodular area between these 2 nodules which slightly larger best demonstrated on the series 601, image 56. There are some small cavities in this area as well. No other significant anomalies are apparent. . BONY STRUCTURES: No acute bony abnormalities apparent. Mild compressive changes of T12 which are stable. UPPER ABDOMEN: Prior left nephrectomy ADDITIONAL FINDINGS: No other significant abnormalities. IMPRESSION: Persistent nodularity in the left lung base. At least 1 of the nodules is slightly more prominent. Most of this area however is not significantly changed. There is some minimal of associated cavitation. As mentioned previously, would recommend a PET CT to determine activity of these lesions. Differential diagnosis would include inflammatory/infectious or neoplastic process. No change in the aortic stent graft with is fusiform dilatation of the aortic arch Dictated by: Henry Ortiz MD 07/19/2020 09:10 Henry Ortiz MD in [place] 07/19/2020 09:10
== END ==
PROVIDERS: PCP Family Medicine; Visit Provider Internal Medicine Pulmonary Disease
DX: R91.8 Other nonspecific abnormal finding of lung field (principal)
CPT/HCPCS: 71250

== ENCOUNTER → 2020-07-25 11:15 | Outpatient (CLI) | payer MEDICARE, SELFPAY ==
[2020-07-25 12:44] LABS: C-Reactive Protein 0.3 mg/L (0-4)
[2020-08-05 01:07] LABS: Aspergillus flavus Negative (Neg:<1:1); Aspergillus fumigatus Negative (Neg:<1:1); Aspergillus niger Negative (Neg:<1:1); Blastomyces Antibody Negative (Neg:<1:1)
== END ==
PROVIDERS: Visit Provider Internal Medicine Pulmonary Disease
DX: R06.00 Dyspnea, unspecified (principal); J84.10 Pulmonary fibrosis, unspecified
CPT/HCPCS: 36415; 86140; 86606; 86612; 86698

== ENCOUNTER → 2020-10-21 12:34 | Outpatient (CLI) | payer MEDICARE, SELFPAY ==
--- NOTE | 2020-10-21 12:34 | CT_ITS ---
PROCEDURE: CT CHEST WO CON CLINICAL INDICATION: Lung nodule followup COMPARISON: CT CT ABDOMEN PELVIS WO CON from 07/26/[address] CHEST WO CON from 07/18/2020 TECHNIQUE: Axial images obtained with sagittal and coronal reformats. All CT scans at the facility use one or more dose reduction, viz: automated exposure control, ma/kV adjustment per patient size (including targeted exams where dose is matched to indication, i.e. head), or iterative reconstruction technique. FINDINGS: Stent graft remains present within the aortic arch. There is dilatation the proximal descending thoracic aorta at the aortic arch region once again noted at 3.8 cm which is not significantly changed. There is some mild dilatation of the ascending aorta at 4.1 cm not significantly changed. Coronary artery calcifications are present. No mediastinal or hilar mass or adenopathy. Dense mitral valve annular calcification noted. Nodularity in the left lung base once again noted which does not appear significantly changed. There are small areas of cavitation in this region. No effusions. No infiltrates. There is some scarring within the lingula. Small stable 4 mm nodules present in the right upper lobe. No new nodules are evident. Prior left nephrectomy. IMPRESSION: 1. Overall stable CT appearance of the chest. No change in the complex nodular opacity in the left lower lobe with some minimal cavitation. Continued six-month follow-up suggested 2. No change the thoracic aortic aneurysm status post prior stent graft placement with mild dilatation of the ascending aorta at 4.1 cm. Dictated by: Henry Ortiz MD 10/22/2020 07:19 Henry Ortiz MD in [facility] 10/22/2020 07:19
== END ==
PROVIDERS: PCP Family Medicine; Visit Provider Internal Medicine Pulmonary Disease
DX: R91.8 Other nonspecific abnormal finding of lung field (principal)
CPT/HCPCS: 71250

== ENCOUNTER → 2021-05-11 14:49 | Outpatient (CLI) | payer MEDICARE, SELFPAY ==
--- NOTE | 2021-05-11 14:49 | CT_ITS ---
PROCEDURE: CT CHEST WO CON CLINICAL INDICATION: Lung nodule follow-up COMPARISON: CT CT ABDOMEN PELVIS WO CON from 07/26/[address] CHEST WO/W CON from 04/15/[address] CHEST WO CON from 10/21/2020 TECHNIQUE: Axial images obtained with sagittal and coronal reformats. All CT scans at the facility use one or more dose reduction, viz: automated exposure control, ma/kV adjustment per patient size (including targeted exams where dose is matched to indication, i.e. head), or iterative reconstruction technique. FINDINGS: HEART AND MEDIASTINAL STRUCTURES: A stent graft is present within the aortic arch. There is fusiform dilatation with concentric calcification involving the aortic arch at 4 cm not significantly changed. The stent does traverse this region. Coronary artery calcifications and/or stents are noted in there are aortic valve calcifications as well. There is dense mitral valve annular calcification. LUNGS AND PLEURAL SPACES: COPD changes with hyperinflation and attenuation of the peripheral pulmonary vessels. Parenchymal opacity is present in the left lower lobe which measures approximately 2 cm in with with a solid component along its inferior margin and cavitary components along its superior margin. This is slightly larger compared to the previous exam. The previously solid component inferiorly measured approximately 11 mm now measuring 15 mm. No spiculation apparent. No effusions or infiltrates. There are scattered areas of scarring. BONY STRUCTURES: No acute bony abnormalities apparent. UPPER ABDOMEN: Unremarkable. Prior left nephrectomy ADDITIONAL FINDINGS: No other significant abnormalities. IMPRESSION: 1. The complex nodular opacity in the left lower lobe is slightly more prominent from the previous exam. This is of questionable clinical significance. The lesion has been stable before hand since 07/26/2019. The slight increased prominence could be related to increasing fibrotic change. One cannot exclude the possibility of a neoplastic process or active inflammatory/infectious process. The increased prominence however is only minor. Consider PET-CT for further evaluation. 2. No change thoracic aortic aneurysm status post stent graft placement Dictated by: Henry Ortiz MD 05/11/2021 16:29 Henry Ortiz MD in [facility] 05/11/2021 16:29
== END ==
PROVIDERS: PCP Family Medicine; Visit Provider Internal Medicine Pulmonary Disease
DX: R91.8 Other nonspecific abnormal finding of lung field (principal)
CPT/HCPCS: 71250

== ENCOUNTER → 2021-08-10 07:54 | Outpatient (CLI) | payer MEDICARE, SELFPAY ==
--- NOTE | 2021-08-10 07:55 | CT_ITS ---
PROCEDURE: CT CHEST WO CON CLINICAL INDICATION: 3-month follow-up COMPARISON: CT CT CHEST WO/W CON from 04/15/[address] CHEST WO CON from 07/18/[address] CHEST WO CON from 10/21/[address] CHEST WO CON from 05/11/2021 TECHNIQUE: Axial images obtained with sagittal and coronal reformats. All CT scans at the facility use one or more dose reduction, viz: automated exposure control, ma/kV adjustment per patient size (including targeted exams where dose is matched to indication, i.e. head), or iterative reconstruction technique. FINDINGS: Again identified is a nodular serpiginous opacity within the lateral basal segment left lower lobe which appears to directly abut or possibly even arise from several small vascular structures and extends to the pleural surface. There are several tiny cystic spaces near the lesion which appear stable. This structure appears overall unchanged since April 15, 2020. Airways are clear. There is no bronchiectasis or pleural fluid. No pneumothorax. No other nodules are identified in the lungs. There is a partially visualized ACDF. There is thoracic aortic endograft. There are numerous mediastinal lymph nodes which are not enlarged. There is compression fracture of T12 which appears similar to April 15, 2020. IMPRESSION: Nodular serpiginous opacity within the lateral basal segment left lower lobe which may arise from several small vascular structures, extending to pleural surface, unchanged since 04/15/2020, which raises the possibility of a pulmonary AVM. CTA of the chest with thin cuts (3mm or less) is recommended for further evaluation. Correlation for clinical history of HHT is also recommended. Dictated by: Norah Vargas MD 08/10/2021 09:23 Norah Vargas MD in [facility] 08/10/2021 09:23
== END ==
PROVIDERS: PCP Family Medicine; Visit Provider Internal Medicine Pulmonary Disease
DX: R91.8 Other nonspecific abnormal finding of lung field (principal)
CPT/HCPCS: 71250

== ENCOUNTER → 2021-09-12 08:17 | Outpatient (CLI) | payer MEDICARE, SELFPAY | PROVIDERS: Visit Provider Surgery | DX: Z01.812 Encounter for preprocedural laboratory examination (principal); Z20.822 Contact with and (suspected) exposure to COVID-19; Z12.11 Encounter for screening for malignant neoplasm of colon; Z86.010 Personal history of colon polyps | CPT/HCPCS: C9803; U0003; U0005 ==

== ENCOUNTER 2021-09-14 12:18 | Day surgery (SDC) | payer MEDICARE, SELFPAY ==
[2021-09-14] VITALS (7 sets, daily range): BP systolic 77–161; BP diastolic 35–82; PULSE 75–87; RESP 14–18; TEMP 36.7–36.8; O2SAT 93–99; BMI 52.3
--- NOTE | 2021-09-14 12:40 | HMH.ANESCL ---
[facility] Anesthesia Checklist - Patient Identification Patient Identification: Arm Band - Structural Data Admitted From: Home Planned Operative Procedure/s: Colonoscopy Consent for Planned Operative Procedure(s) Verified: Yes - NPO Status Verified Time NPO: 00:00 - Additional verifications Anesthesia Reactions: No - Airway Assessment C-Spine Mobility Assessed: Yes TMJ Mobility Assessed: Yes Dentition: Good Dentition - Neurological Assessment Level of Consciousness: Awake Hx Seizures: No Numbness or tingling in extremities: No - Anesthesia Plan Anesthesia Risk discussed: Yes Anesthesia Plan: Verified ASA Class: III Anesthesia Type: MAC [facility] History I have reviewed the patient's past medical history: Yes Medical History: Reports:: Aneurysm, Cancer, Hyperlipidemia, Hypertension Denies:: Diabetes Mellitus Type 1, Diabetes Mellitus Type 2, Internal Pacemaker, Lung Disease, MRSA, Seizures *Have you ever received a pneumonia vaccine?: Yes *Have you received a flu vaccine this season?: Yes Other Medical History: Reports: Other (Lung nodules) Anesthesia experience/problems:: None Other Surgeries: Yes: Cancer Surgery (Left Nephrectomy, AAA Repair), Cardiac Catheterization, Colonoscopy, Coronary Stent, Other. No: Pacemaker Amputation: No Fractures: No - *Social History Smoking Status: Never smoker Alcohol Intake: current Alcohol Intake Frequency:: 3 or more drinks per day Substance Use Type: denies use *Occupational Status:: employed Housing: house Household Members: spouse *Travel in the last 8 weeks: None Family Hx:: Stroke, Other
--- NOTE | 2021-09-14 14:17 | HMH.SCOPE ---
- Procedure: Date: 09/14/21 Patient Date of :: 1940 Procedure Performed:: Colonoscopy with polypectomy Indications:: History of multiple complex colon polyps. Please see indications from last colonoscopy forwarded below. Forwarded from Dr. Leonard' procedure/colonoscopy note from May 2020: Mr. Butterfield is a 80-year-old gentleman with a history of multiple large adenomatous polyps of the right colon that have been more advanced in the past. He did originally see me in June 2018 because of a positive Cologuard test. He had a prior normal colonoscopy in 2009. At the time of his colonoscopy in July 11, 2018, he did have a 30 mm polyp and a 22 mm polyp both of which were in the ascending colon. He had a repeat surveillance colonoscopy in December 2018 and had right-sided adenomatous polyps x5 (that ranges in size from 18 to 25 mm). The patient has done well and takes Konsyl daily. He reports no abdominal pain, weight loss, change in his bowel habits or rectal bleeding. He reports no family history of colon cancer. He does state that 6 months ago he presented to the hospital with left lower quadrant abdominal pain. His CAT scan showed bowel obstruction initially. A repeat scan the following day showed resolution of this. Performing Provider:: Bryan Jacobson MD Referring Provider:: . Sedation:: Monitored anesthesia care Procedure:: After informed consent was obtained the patient was taken to the endoscopy suite. Sedation ensued after the patient was transferred to the left lateral decubitus position. Pulse, blood pressure, and oxygen saturation were monitored throughout the procedure. Digital rectal exam revealed no significant abnormality. The colonoscope was placed in position. The entire colon was evaluated. The colonoscope was carefully removed and the patient was transferred to recovery in stable condition. Please see findings and specimens below for detail. Findings:: Bowel preparation moderate to poor Profound spasticity and lack of relaxation Hemorrhoidal tags Sessile lobulated polyps (see specimens) Specimens:: Cecal polyp (cold snare and biopsy forceps) Sessile adjacent polyps at 30 cm (cold snare and biopsy forceps) Recommendations:: Timing of repeat colonoscopy is pending pathology but recommendations will likely remain for close (1 year) follow-up secondary to history of multiple large complex polyps on multiple occasions, moderate to poor bowel preparation, and spasticity/lack of relaxation. Complications:: No immediate Estimated blood obtained (mL): 1
== END 2021-09-14 15:00 | disposition home or self-care (01) ==
LOC: OUTP 12:22
PROVIDERS: PCP Family Medicine; Visit Provider Surgery
PROC: 0DJD8ZZ Inspection of Lower Intestinal Tract, Via Natural or Artificial Opening Endoscopic (ICD-10-PCS; principal; 2021-09-14 14:00)
DX: Z12.11 Encounter for screening for malignant neoplasm of colon (principal); K64.0 First degree hemorrhoids; K58.9 Irritable bowel syndrome, unspecified; K63.5 Polyp of colon; Z86.010 Personal history of colon polyps; E78.5 Hyperlipidemia, unspecified; I10 Essential (primary) hypertension; Z79.82 Long term (current) use of aspirin; Z79.899 Other long term (current) drug therapy; Z85.528 Personal history of other malignant neoplasm of kidney; Z90.5 Acquired absence of kidney; Z86.79 Personal history of other diseases of the circulatory system; Z82.3 Family history of stroke; Z84.89 Family history of other specified conditions
CPT/HCPCS: 45385; 88305; J2704

== ENCOUNTER → 2022-05-29 08:15 | Outpatient (CLI) | payer MEDICARE, SELFPAY | PROVIDERS: PCP Family Medicine; Visit Provider Internal Medicine Gastroenterology | DX: Z01.812 Encounter for preprocedural laboratory examination (principal); Z20.822 Contact with and (suspected) exposure to COVID-19; Z12.11 Encounter for screening for malignant neoplasm of colon | CPT/HCPCS: C9803; U0003; U0005 ==

== ENCOUNTER 2022-05-31 09:16 | Day surgery (SDC) | payer MEDICARE, SELFPAY ==
[2022-05-29 13:47] VITALS: BMI 23.7
[2022-05-31] VITALS (7 sets, daily range): BP systolic 120–168; BP diastolic 57–96; PULSE 63–76; RESP 17–18; TEMP 36.3–36.6; O2SAT 96–100
--- NOTE | 2022-05-31 10:49 | P.PN_ITS ---
[facility] Anesthesia Checklist - Patient Identification Patient Identification: Arm Band - Structural Data Admitted From: Home Planned Operative Procedure/s: colonoscopy Consent for Planned Operative Procedure(s) Verified: Yes Verified Documents: Surgical Consent, History and Physical - NPO Status Verified Time NPO: 00:00 - Additional verifications Anesthesia Reactions: No - Airway Assessment C-Spine Mobility Assessed: Yes (mp2) TMJ Mobility Assessed: Yes Dentition: Good Dentition - Neurological Assessment Level of Consciousness: Awake, Alert - Anesthesia Plan Anesthesia Risk discussed: Yes Anesthesia Plan: Verified ASA Class: III Anesthesia Type: MAC [facility] History I have reviewed the patient's past medical history: Yes Medical History: Reports:: Aneurysm, Cancer (lef tkidney), Hyperlipidemia, Hypertension Denies:: Diabetes Mellitus Type 1, Diabetes Mellitus Type 2, Internal Pacemaker, Lung Disease, MRSA, Seizures *Have you ever received a pneumonia vaccine?: Yes *Have you received a flu vaccine this season?: Yes Other Medical History: Reports: Other Anesthesia experience/problems:: nac Laterality Cases: Bilateral: Cataract Other Surgeries: Yes: Cancer Surgery (Left Nephrectomy, AAA Repair), Cardiac Catheterization, Colonoscopy, Coronary Stent, Other. No: Pacemaker Amputation: No Fractures: No - *Social History Last grade of school completed: High school graduate Smoking Status: Never smoker Alcohol Intake: current Alcohol Intake Frequency:: 3 or more drinks per day Substance Use Type: denies use *Occupational Status:: retired Housing: house Household Members: spouse *Travel in the last 8 weeks: None Family Hx:: Cancer
--- NOTE | 2022-05-31 11:09 | HMH.SCOPE ---
- Procedure: Date: 05/31/22 Patient Date of :: 1940 Procedure Performed:: Screening colonoscopy Indications:: History of polyps Performing Provider:: Rony Birch MD Referring Provider:: Ortiz Lockhart Sedation:: Propofol Procedure:: After placing the patient in the left lateral decubitus position, the colonoscopy was gently inserted into the rectum and under direct visualization advanced to the cecum which was identified by transillumination in the right lower quadrant, identification of the ileocecal valve, appendiceal orifice, and cecal strap. Color, texture, mucosa, and anatomy of the colon were carefully examined with the scope. Findings:: Anal canal: normal Rectum: normal Sigmoid colon: normal without polyps or inflammatory changes, scattered diverticulosis Descending colon: normal without polyps or inflammatory changes Splenic flexure: normal Transverse colon: normal without polyps or inflammatory changes Hepatic flexure: normal Ascending colon: normal without polyps or inflammatory changes Cecum: normal Terminal ileum: not visualized Impression: scattered diverticulosis otherwise normal colonoscopy Specimens:: None Recommendations:: No further routine screening colonoscopy recommended due to age Complications:: None Estimated blood obtained (mL): 0
--- NOTE | 2022-05-31 13:13 | SUR.PHASEII ---
Limb alert noted to left arm
== END 2022-05-31 11:55 | disposition home or self-care (01) ==
LOC: OUTP 09:17
PROVIDERS: PCP Family Medicine; Visit Provider Internal Medicine Gastroenterology
PROC: 0DJD8ZZ Inspection of Lower Intestinal Tract, Via Natural or Artificial Opening Endoscopic (ICD-10-PCS; CPT 45378; principal; 2022-05-31 10:30)
DX: Z12.11 Encounter for screening for malignant neoplasm of colon (principal); Z86.010 Personal history of colon polyps; Z79.82 Long term (current) use of aspirin; I10 Essential (primary) hypertension
CPT/HCPCS: G0105

== ENCOUNTER → 2022-11-05 15:05 | Outpatient (CLI) | payer MEDICARE, SELFPAY ==
--- NOTE | 2022-11-05 15:08 | CT_ITS ---
FINAL REPORT TECHNIQUE: Thin section axial images were obtained from the lung apices through the upper abdomen without contrast. This study was performed with techniques to keep radiation doses as low as reasonably achievable (ALARA). Individualized dose reduction techniques using automated exposure control or adjustment of mA and/or kV according to the patient's size were employed. CLINICAL HISTORY: PULMONARY NODULE COMPARISON: 08/10/2021 FINDINGS: There is an intraluminal graft at the aortic arch. Prominent coronary artery calcifications and dense mitral valve calcifications are seen. There is no mediastinal, hilar, or axillary lymphadenopathy. There is no pleural or pericardial effusion. There is a stable, slightly nodular and somewhat linear opacity in the left lower lobe. Lungs are otherwise clear.. Limited, unenhanced evaluation of the upper abdomen is without acute abnormality. The left kidney is absent. There is no acute osseous abnormality. IMPRESSION: Stable exam of the chest. Stable abnormality in the left lower lobe. As stated on prior exam this could be related to pulmonary AVM. Reviewed, Interpreted and Dictated by Elizabeth Mcfadden MD Transcribed by Nicolette High Authenticated and [facility]
== END ==
PROVIDERS: PCP Family Medicine; Visit Provider Family Medicine
DX: R91.1 Solitary pulmonary nodule (principal)
CPT/HCPCS: 71250

== ENCOUNTER 2025-03-23 08:12 | Outpatient (CLI) | payer MEDICARE, SELFPAY ==
--- OUTSIDE RECORDS SUMMARY | 2024-08-20 10:00 | XMS_ITS ---
Author Organization [facility] Address [address] [place] [id number] Care Team Providers Care Museum Assistant Name Role Phone Michael Lockhart Primary Care Provider Allergies No Known Allergies Results Component Value Reference Range Notes P-Testosterone, Free, Bioava ilable, and Total (Adult Male) Reviewed date:08/30/2024 07:45:41 PM Interpretation:Abnormal Performing Lab: Notes/Report: Test performed by [facility] [address] , [address], [place] [address] Parviz Birmingham MD, Word Processor Operator CLIA: [id number] Testosterone Total 1156.00 264.00-916.00 ng/dL Sex Hormone Binding Globulin (SHBG) 109.0 19.3- 76.4 nmol/L Free Testosterone, Percent 0.97 1.60-2.90 % Free Testosterone (calculation) 112 47-244 pg /mL Testosterone Bioavailable 275 131-682 ng/dL REASON FOR VISIT CHECK TESTOSTERONE LEVEL Medications Medication SIG (Take, Route, Frequency, Duration) Notes Start Date End Date Status Benazepril HCl 20 MG 1 tab(s) orally onc e a day for 90 days Active Testosterone 12.5 MG/ACT (1%) 2-4 pumps to skin in the morning to shoulder, upper arms or abdomen Transdermal Once a day 05/12/2024 Active hydroCHLOROthiazide 12.5 MG 1 tab(s) ora lly once a day for 90 days Active Aspirin Adult Low Dose 81 MG 1 tab(s) or ally once a day Active Multivitamin - 1 tab(s) orally once a day Active amLODIPine Besylate 10 MG 1 tab(s) orall y once a day for 90 days Active Vital Signs Blood pressure systolic 128 mm Hg 08/20/20 24 Blood pressure diastolic 82 mm Hg 024 Heart Rate 62 /min 08/20/2024 Height 72 in 08/20/2024 Weight 180.8 lbs 08/20/2024 BMI 24.52 kg/m2 08/20/2024 Encounters Encounter Location Date Provider Diagnosis [facility] [address] [facility] 36 [facility] [address] [place] [phone] 08/20/2024 Michael Lockhart Low testosterone in male [...] rt test results, Reason: Provider Name:Michael Soto, 2025 09:45:00 AM, [address] [facility] 36 [facility], [address], [place], [id number], Progress Notes * ELISE NIEVESDOB:1940 ( 84 yo M)Acc No.[id number]:08/20/2024 Progress Notes Patient: ELISE LAM Provider: Michael Lockhart M.D. :1940 A ge:84 Y S ex:Male Date:08/20/2024 Address:[address] [place] [address] [address] [id number] Subjective: * Chief Complaints: * 1 . [...] adenomatous polyps/ Dr. Leonard 06/2018, C-scope/ polyps/ [place] 12/2018, C-scope/ Kavon/ polyp x 2 09/2021, [...] smoke detector use: yes. 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 Alcohol: Yes, Type: 20-25 beers, wine, mixed [...] ia phone to report test results * Billing Information: * Visit Code: 42592 Office Visit, Est Pt., Level 3. * Procedure Codes: * Electronic signature of Michael Lockhart MD on 03/23/2025 at 08:21 AM EDT Sign off status: Pending * Provider: Michael Lockhart M.D. Date: 10/20/2023 Generated for Richard castillo/Chin/eTrusssmitting on: 03/23/2025 08:21 AM EDT
--- OUTSIDE RECORDS SUMMARY | 2024-11-05 04:45 | XMS_ITS ---
Author Organization [facility] Address [address] [place] [id number] Care Team Providers Care Speech Language Pathologist Prn Name Role Phone Michael Lockhart Primary Care Provider Allergies No Known Allergies Results Component Value Reference Range Notes P-Comprehensive Metabolic Pa jonathon (CMP) Reviewed date:11/09/2024 10:41:42 AM Interpretation:Normal Performing Lab: Notes/Report: Test performed by [facility] [address] [place] [address] , [address], [place] [address] Parviz Birmingham MD, Customer Service Leader CLIA: [id number] Sodium 137 135-145 mmol/L Potassium 4.6 3.5-5.3 [...] Interpretation:Normal Performing Lab: Notes/Report: Test performed by [facility] [address], [place] [address] Parviz Birmingham MD, Customer Service Leader CHEKO: [id number] Cholesterol 184 <200 mg/dL Triglycerides 66 <150 [...] Interpretation:Normal Performing Lab: Notes/Report: Test performed by [facility] [address] [place] [address] , [address], [place] [address] Parviz Birmingham MD, Customer Service Leader CLIA: [id number] PSA 1.22 <4.00 ng/mL Please note this is an ultrasensitive PSA assay with a lower limit of detection of 0.014 ng/mL. This test is performed by the [employer] ECLIA methodology. Values obtained with different assay [...] Provider Diagnosis Chen [address] [facility] [address] [place] [id number] 11/05/2024 Michael Lockhart Prostate cancer screening Z12.5 [...] Assessment Notes Muscle weakness Continue follow-[facility] w [facility] neurology Next Appt Details Follow Up: 6 Months, Reason: Provider Name:Michael Soto, 2025 09:45:00 AM, [address], [address], [place], [place], [id number], Progress Notes * ELISE NIEVESDOB:1940 ( 84 yo M)Acc No.[id number]:11/05/2024 Progress Notes Patient: ELISE LAM Provider: Michael Lockhart M.D. :1940 A ge:84 Y S ex:Male Date:11/05/2024 Address:[address] [place], [place] [phone] Subjective: * Chief Complaints: * 1 . [...] weakness. Workup thus far has been unremarkable and change in his symptoms. He is to [...] smoke detector use: yes. 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 Alcohol: Yes, Type: 20-25 beers, wine, mixed [...] * Vitals: W t:181.2, Temp:97.1, BP:138/70, HR:64, Nurse:MMAdelina, Ht: 72, BMI:24.57. * Examination: C ardiology: General Appearance: p leasant, NAD. HEENT: s clera and conjunctiva clear, PERRLA, TM's normal, translucent. Carotid upstroke: n ormal, no bruits. Heart sounds: R RR, normal S1, S2. Murmur, click , gallop: n one. Lungs: c lear, no rales or wheezes. Abdomen: p ositive BS, soft, nontender. Extremities: t race ankle edema. Assessment: * Assessment: 1. E [...] Creatinine 74 >59 - mL/min/1.73m2 * Michael Lockhart 11/09/2024 1 0:41:32 AM [...] on * Follow Up: 6 Months * Billing Information: * Visit Code: 85157 Office Visit, Est Pt., Level 3. * Procedure Codes: G2211 Complex e/m visit add on. * Electronic signature of Michael Lockhart MD on 03/23/2025 at 08:23 AM EDT Sign off status: Pending * Provider: Michael Lockhart M.D. Date: 0 11/05/2024 Generated for Richard castillo/Chin/eTransmitting on: 0 03/23/2025 08:23 AM EDT History and Physical Notes * HPI [...]
--- OUTSIDE RECORDS SUMMARY | 2025-03-02 11:00 | XMS_ITS | Encounter Summary ---
Author Organization [facility] Address [address] [place] [address] Care Team Providers Care Club Waiter/Waitress Name Role Phone Ortiz Lockhart MD Primary Care Provider [phone]- [phone] Reason for Visit * Other Medical (Routine) - Closed Specialty Diagnoses / Procedures Referred By Phoebe corley Referred To Contact Neurology Diagnoses Muscle weakness (generalized) Imbalance Procedures EMG / Nerve Conduction Study Christian Beard MD [address] [address] Phone: tel: fax: Referral ID Status Reason Start Date Expiration Date V isits Requested Visits Authorized [id number] Closed Specialty Services Required 10/29/2024 04/30/2026 1 1 Encounter Details Date Type Department Care Team (Latest Contact Info) Description 03/02/2025 11:00 AM EDT Procedure Visit [facility] [address] [place] [address] Whitney Johnson MD [id number] [place] [address] Muscle weakness (generalized); Imbalance Social [...] from the original note were not included. [facility] Neuromuscular Medicine Program Electromyography Laboratory Report Date of Service: 03/03/2025 Patient Name: Danilo Butterfield MRN: ?[id number] ??Date of : 1940 ? Referring provider: Christian Beard Md [address] [address] Clinical impression: 84 y.o. male presents with [...] specified] needle technique (Leandro 2013 4th ed, [employer]). NCS Study: Sensory Leg [] [...] >40 <57 Whitney Johnson M.D. Neuromuscular Division Mold Cleaner Neurology [facility] [phone] documented in this encounter Plan of Treatment [...] documented as of this encounter Care Teams Club Waiter/Waitress Relationship Specialty Start Date End Date Ortiz Lockhart MD [address] [place] [address] PCP - General 09/02/24 documented as of this encounter
--- OUTSIDE RECORDS SUMMARY | 2025-03-15 11:30 | XMS_ITS | Encounter Summary ---
Author Organization Healthcare Address [address] [place] [address] Care Team Providers Care Sourcing Manager Name Role Phone Ortiz Lockhart MD Primary Care Provider +1- [phone] Reason for Referral * Consultation (Routine) - Pending Review Specialty Diagnoses / Procedures Referred By Phoebe corley Referred To Contact Physical Therapy Diagnoses Imbalance Christian Beard MD [address] [address] Phone: tel: fax: Referral ID Status Reason Start Date Expiration Date Visits Requested Visits Authorized [id number] Pending Review Specialty Services Required 03/15/2025 09/14/2026 1 1 * Imaging (Routine) - Closed Specialty Diagnoses / Procedures Referred By Phoebe corley Referred To Contact Diagnoses Imbalance Procedures MR Lumbar Spine wo IV Contrast Christian Beard MD [address] [address] Phone: tel: fax: [facility] () [address] [place] [address] Phone: tel: fax: Referral ID Status Reason Start Date Expiration Date Visits Re quested Visits Authorized [id number] Closed 03/15/2025 09/14/2026 1 1 Reason for Visit * Reason Comments Follow-up Encounter Details Date Type Department Care Team (Latest Contact Info) Description 03/15/2025 11:30 AM EDT Office Visit [facility] [address], [address] [place] [address] Christian Beard MD [address] [place] [address] Muscle weakness (generalized) (Primary Dx); Imbalance; Memory changes; Lumbosacral radiculopathy; Peripheral polyneuropathy Social History Tobacco Use Types Packs/Day Years Used Date Smoking Tobacco: Never Smokeless Tobacco: Never Tobacco Cessation:Counseling Given: Not Answered Alcohol Use Standard Drinks/Week Comments Yes 28 (1 standard drink = 0.6 oz pu re alcohol) Mixed Drink Once a week PHQ-2 Answer Date Recorded Patient Health Questionnaire-2 Score 0 03/15/2025 PHQ-9 Answer Date Recorded Patient Health Questionnaire-9 Score 0 10/29/2024 Sex and Gender Information Value Date Recorded Sex Assigned at Male 10/22/2024 1:49 PM EST Legal Sex Male 4:51 PM EST Gender Identity Male 10/22/2024 1:49 PM EST Sexual Orientation Straight 10/22/2024 1: 49 PM EST documented as of this encounter Last Filed Vital Signs Vital Sign Reading Time Taken Comments Blood Pressure 128/73 03/15/2025 10:57 AM EDT Pulse 76 03/15/2025 10:57 AM EDT Temperature - - Respiratory Rate - - Oxygen Saturation - - Inhaled Oxygen Concentration - - Weight 79.4 kg (175 lb) 03/15/2025 10:57 AM EDT Height 185.4 cm (6' 1 ) 03/15/2025 10:57 AM EDT Body Mass Index 23.09 03/15/2025 10:57 AM EDT documented in this encounter Functional Status * Over the past 2 weeks, how often have you been bothered by any of the following problems? Question Answer Date of Assessment Author Little interest or pleasure in doing things Not at all 03/15/2025 11:00 AM EDT Antonia Gómez Feeling down, depressed, or hopeless Not at all 03/15/2025 11:00 AM EDT Antonia Gómez Patient Health Questionnaire -2 Score 0 03/15/2025 11:00 AM EDT Antonia Gómez * If you checked off any problems on this questionnaire so far, Question Answer Date of Assessment Author How difficult have these problems made it for you to do your work, take care of things at home, or get along with other people? Not difficult at all 03/15/2025 11:00 AM EDT Cornel Gómez n documented as of this encounter Miscellaneous Notes * Progress Notes - Christian Beard MD - 03/15/2025 11:30 AM EDT Telehealth Statement Patient Verification Patient identity has been confirmed using name and date of ? Yes Authorizations and Agreements/Telemedicine Consent sent and consent confirmed? Yes Patient Location: Home/Other Patient confirms they are physically located in [place]? Yes If the patient is not physically located in [place], the provider has confirmed with [facility] thatthe provider is authorized to provide services in patient's stated location? N/A Provider Location: [facility] facility Audio and video or audio only? Audio and video Total visit time: 40 minutes NEUROMUSCULAR CLINIC NOTE Patient Name: Danilo Butterfield MRN: ?[id number] ??Date of : 1940 ?Date of Clinic Visit: 03/15/25 Primary Care Provider: Ortiz Lockhart MD [address] [place] [address] CHIEF COMPLAINT: Weakness in both thighs and imbalance HISTORY OF PRESENT ILLNESS: Initial history: Danlio Butterfield is a 84 y.o. male presenting with weakness in both thighs and imbalance for a year. He is referred by Dr. Lockhart, his primary care physician. He is accompanied by his at today's visit who offered additional history. Mr. Butterfield reports weakness in both thighs for a year. He did not identify any precipitating factors. He reports initially it was dull ache with walking but now he has had difficulties getting up froma low chair. Previously he was able to walk a mile a day, however, he needs to sit down due to weakness after walking a quarter of a mile now. He does not have any numbness or tingling sensation in the legs. He does not have any lower back pain or lumbar radicular pain. He does not have any weakness in the arms. There are no difficulties with chewing or swallowing. He reports difficulties with balance also for a year. Mr. Butterfield reports taking cholesterol medication about 15-18 years ago for a few years, then self discontinued the medication after reading about the side effects. He reports itchy bumps in the back in winter times, otherwise, there are no unusual rashes. Mr. Butterfield was found to have low testosterone level, however there is no improvement of the weaknesswith testosterone injection. Interval history: Mr. Butterfield was first and last seen by me on 10/29/2024. At that time NCS/EMG was ordered which did not show electrodiagnostic evidence of myopathy but was read as a polyneuropathy. Blood work for underlying cause of neuropathy returned unremarkable. Mr. Butterfield has worked with PT for physical therapy with minimum involvement. He also reports difficulties with short-term memories over the past 6-12 months. He is able to perform his IADLs. REVIEW OF SYSTEMS: 14 point review of systems negative except for the above. PAST MEDICAL HISTORY: Past Medical History: Diagnosis Date Cancer ([facility]) October 2005 Dementia ([facility]) Difficulty walking Hypertension Memory loss Tremor Weakness of limb FAMILY HISTORY: Family History Problem Relation Name Age of Onset Stroke Father Lloyd Butterfield SOCIAL HISTORY: Social History Socioeconomic History Marital status: Spouse name: Not on file Number of children: Not on file Years of education: Not on file Highest education level: Not on file Occupational History Not on file Tobacco Use Smoking status: Never Smokeless tobacco: Never Substance and Sexual Activity Alcohol use: Yes Alcohol/week: 28.0 standard drinks of alcohol Types: 6 Glasses of wine, 21 Cans of beer, 1 Shots of liquor per week Comment: Mixed Drink Once a week Drug use: Never Sexual activity: Not Currently Partners: Female Other Topics Concern Not on file Social History Narrative Not on file Social Drivers of Health Financial Resource Strain: Not on file Food Insecurity: Not on file Transportation Needs: Not on file Physical Activity: Not on file Stress: Not on file Social Connections: Not on file Intimate Partner Violence: Not on file Housing Stability: Not on file ALLERGIES: No Known Allergies MEDICATIONS: Current Outpatient Medications: amLODIPine (Norvasc) 10 MG tablet, Take 1 tablet (10 mg) by mouth 1 (one) time each day., Disp: , Rfl: ASPIRIN 81 MG chewable tablet, Chew 1 tablet (81 mg) 1 (one) time each day., Disp: , Rfl: benazepril (Lotensin) 20 MG tablet, Take 1 tablet (20 mg) by mouth 1 (one) time each day., Disp: , Rfl: hydroCHLOROthiazide (Microzide) 12.5 MG capsule, Take 1 capsule (12.5 mg) by mouth 1 (one) time each day., Disp: , Rfl: Multiple Vitamin (multivitamin) tablet, Take 1 tablet by mouth 1 (one) time each day., Disp: , Rfl: enbbapxvzkhi-cwtpwwhf-hetjc acid-coenzyme q10 (Preservision AREDS 2) capsule, Take 2 capsules by mouth., Disp: , Rfl: PHYSICAL EXAM: General: Well-appearing male in no apparent distress Tele visit. Limited exam. LABS/IMAGING: I personally reviewed prior laboratory studies, imaging studies and relevant tests. NCS/EMG by Dr. 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 IMPRESSION: Dnailo Butterfield is a 84 y.o. male presenting with bilateral thigh weakness for a year. On exam he has difficulties getting up from a seated position with arms crossed. Additionally, he has severely reduced vibratory sensation in bilateral lower extremities. Mr. Butterfield was first and last seen by me on 10/29/2024. Blood work for underlying cause of neuropathy returned unremarkable. NCS/EMG was read as length-dependent sensorimotor axonal polyneuropathy. However in reviewing the raw data, the response of sural sensory nerve conduction study was still present, however, there are neurogenic changes in the right tibialis anterior, vastus lateralis, and medial gastrocs. This should raise concerns of a lumbosacral radiculopathy. Mr. Butterfield does not recall any current or previous lo wer back pain. Therefore I have suggested MRI lumbar spine to evaluate for other causes of nerve root involvement. I have also suggested PT for core muscle strength. Mr. Butterfield would like to have it done at [address] Mr[address] Butterfield reports difficulties with short-term memories over the past 6-12 months. He is able to perform his IADLs. I have suggest start with blood work for reversible causes of memory issues. I willlet clinic staff mail the blood work order to his home address. Orders Placed This Encounter Procedures MR Lumbar Spine wo IV Contrast Folate Borrelia Species by PCR (Lyme Disease) Ambulatory referral to PT/OT for Eval and Treat Return in clinic after above testing I spent a total of 40 minutes in both zihv-yx-sicb and non jofk-sk-rqpf activities for this visit on the date of this encounter. Christian Beard MD Neuromuscular Medicine Program Department of Neurology [facility] documented in this encounter Plan of Treatment Scheduled Orders Name Type Priority Associated Diagnoses Orde r Schedule MR Lumbar Spine wo IV Contrast Imaging Routine Imbalance Expected: 03/15/2025 (Approximate), Expires: 09/16/2026 Folate Lab Routine Muscle weakness (generalized) Imbalance Memory changes Lumbosacral radiculopathy Expected: 03/15/2025 (Approximate), Expires: 09/16/2026 Borrelia Species by PCR (Lyme Disease) Lab Routine Memory changes Expected: 03/15/2025 (Approximate), Expires: 09/16/2026 Scheduled Referrals Name Type Priority Associated Diagnoses Order Schedule Ambulatory referral to PT/OT for Eval and Treat Outpatient Referral Routine Imbalance Expected: 03/15/2025, Expires: 09/16/2026 documented as of this encounter Visit Diagnoses Diagnosis Muscle weakness (generalized)- Primary Imbalance Abnormality of gait Memory changes Lumbosacral radiculopathy Thoracic or lumbosacral neuritis or radiculitis, unspecified Peripheral polyneuropathy documented in this encounter Additional Health Concerns Assessment Noted Time PHQ-9 Depression Total Score: 0 10/29/19 25 10:26 AM EST A fall risk assessment has been complete d for the patient 03/15/2025 11:01 AM EDT A Body Mass Index follow-up plan has been documented for the patient 03/15/2025 1:06 PM EDT documented as of this encounter Care Teams Sourcing Manager Relationship Specialty Start Date End Date Ortiz Lockhart MD [address] [place] [address] PCP - General 09/02/24 documented as of this encounter
--- OUTSIDE RECORDS SUMMARY | 2025-03-23 08:22 | XMS_ITS | Encounter Summary ---
Author Organization [facility] Address [address] [place] [address] Care Team Providers Care Solar Electric Practitioner Name Role Phone Ortiz Lockhart MD Primary Care Provider +1- [phone] Encounter Details Date Type Department Care Team (Latest Contact Info) Description 02/23/2025 Travel Social History Tobacco Use Types Packs/Day Years [...] PM EST documented as of this encounter Plan of Treatment Not on file documented as of this encounter Visit Diagnoses Not on filedocumented in this encounter Additional Health Concerns Assessment Noted Time PHQ-9 Depression Total Score: 0 10/29/19 25 10:26 AM EST A fall risk assessment has been complete d for the patient 10/29/2024 10:26 AM EST A Body Mass Index follow-up plan has been documented for the patient 10/29/2024 11:26 AM EST documented as of this encounter Care Teams Solar Electric Practitioner Relationship Specialty Start Date End Date Ortiz Lockhart MD [address] [place] [address] PCP - General 09/02/24 documented as of this encounter
--- OUTSIDE RECORDS SUMMARY | 2025-03-23 08:22 | XMS_ITS | Encounter Summary ---
Author Organization Healthcare Address [address] [place] [address] Care Team Providers Care Circular Clerk Name Role Phone Ortiz Lockhart MD Primary Care Provider +1- [phone] Encounter Details Date Type Department Care Team (Late st Contact Info) Description 03/11/2025 Telephone [facility] [address], [address] [place] [address] Christian Beard MD [address] [place] [address] Social History Tobacco Use Types Packs/Day Years [...] PM EST documented as of this encounter Functional Status * Over the past 2 weeks, how often have you been bothered by any of the following problems? Question Answer Date of Assessment Author Little interest or pleasure in doing things Not at all 03/15/2025 11:00 AM Antonia Alvarez Feeling down, depressed, or hopeless Not at [...] as of this encounter Miscellaneous Notes * Telephone Encounter - Elvira Kimble RN - 03/15/2025 3:51 PM EDT Lab slips from Dr. Beard have been mailed to patient's home address. PT order has been faxed to [address] in [place]. The [place] location is currently not open (per staff at [address] Fax number [phone] * Telephone Encounter - Rakel Gifford - 03/11/2025 9:40 AM EDT Patient Phone Message Reason for Call: is calling to discuss EMG results and know follow up plan. Please advise. Best contact number and optimal time of day to reach caller: [phone] Note: Please do not reply to this message. Follow-up communication and further actions as a result of this message need to be communicated with the patient directly, if the patient is not active onMyChart. If the patient is active on MyChart, they will receive notification of the communication/outcome via Side.Crt. documented in this encounter Plan of Treatment [...] documented as of this encounter Care Teams Circular Clerk Relationship Specialty Start Date End Date Ortiz Lockhart MD [address] [place] [address] PCP - General 09/02/24 documented as of this encounter
--- OUTSIDE RECORDS SUMMARY | 2025-03-23 08:22 | XMS_ITS | Encounter Summary ---
Author Organization [facility] Address [address] [place] [address] Care Team Providers Care Territory Outside Sales Manager Name Role Phone Ortiz Lockhart MD Primary Care Provider +1- [phone] Encounter Details Date Type Department Care Team (Latest Contact Info) Description 03/02/2025 Travel Social History Tobacco Use Types Packs/Day [...] documented as of this encounter Care Teams Territory Outside Sales Manager Relationship Specialty Start Date End Date Ortiz Lockhart MD [address] [place] [address] PCP - General 09/02/24 documented as of this encounter
--- OUTSIDE RECORDS SUMMARY | 2025-03-23 08:22 | XMS_ITS | Encounter Summary ---
Author Organization Healthcare Address [address] [place] [address] Care Team Providers Care Installers Mechanical Name Role Phone Ortiz Lockhart MD Primary Care Provider +1- [phone] Encounter Details Date Type Department Care Team (Late st Contact Info) Description 02/26/2025 Telephone [facility] [address] [place] [address] Whitney Johnson MD [address] [place] [address] Social History Tobacco Use Types [...] documented as of this encounter Care Teams Installers Mechanical Relationship Specialty Start Date End Date Ortiz Lockhart MD [address] [place] [address] PCP - General 09/02/24 documented as of this encounter
--- OUTSIDE RECORDS SUMMARY | 2025-03-23 08:22 | XMS_ITS | Encounter Summary ---
Author Organization [facility] Address [address] [place] [address] Care Team Providers Care Space Officer Name Role Phone Ortiz Lockhart MD Primary Care Provider +1- [phone] Encounter Details Date Type Department Care Team (Latest Contact Info) Description 03/13/2025 Travel Social History Tobacco Use Types Packs/Day [...] documented as of this encounter Care Teams Space Officer Relationship Specialty Start Date End Date Ortiz Lockhart MD [address] [place] [address] PCP - General 09/02/24 documented as of this encounter
--- OUTSIDE RECORDS SUMMARY | 2025-03-23 08:23 | XMS_ITS | Clinical Summary ---
Author Organization [facility] Address [address] [place] [address] Care Team Providers Care Carpet Or Rug Layer Helper Name Role Phone Ortiz Lockhart MD Primary Care Provider +1- [phone] Allergies No known active allergies Medications amLODIPine (Norvasc) 10 MG tablet Take 1 tablet (10 mg) by mouth 1 (one) time each day. 10/14/2001 Active benazepril (Lotensin) 20 MG tablet Take 1 tablet (20 mg) by mouth 1 (one) time each day. 10/14/2001 Active hydroCHLOROthia zide (Microzide) 12.5 MG capsule Take 1 capsule (12.5 mg) by mouth 1 (one) time each day. 10/14/2019 Active ASPIRIN 81 MG chewable tablet Chew 1 tablet (81 mg) 1 (one) time each day. Active Multiple Vitamin (multivitamin) tablet Take 1 tablet by mouth 1 (one) time each day. Active multivitamin-mi nerals-folic acid-coenzyme q10 (Preservision AREDS 2) capsuleIndicati ons:pt stated he takes vision shield brand daily Take 2 capsules by mouth. Active Active Problems Problem Noted Date Diagnosed Date Memory changes 03/15/2025 Lumbosacral radiculopathy 03/15/2025 Peripheral polyneuropathy 03/15/2025 Muscle weakness (generalized) 10/29/2024 Imbalance 10/29/2024 Encounters Date Type Department Care Team Description 03/17/2025 Telephone [place] [facility] [address], [address] [place] [address] Christian Beard MD 03/15/2025 11:30 AM EDT Office Visit [facility] [address], [address] [place] [address] Christian Beard MD Muscle weakness (generalized) (Primary Dx); Imbalance; Memory changes; Lumbosacral radiculopathy; Peripheral polyneuropathy 03/13/2025 Travel 03/11/2025 Telephone [facility] [address], [address] [place] [address] Christian Beard MD 03/02/2025 11:00 AM EDT Procedure Visit [facility] [address], [address] [place] [address] Whitney Johnson MD Muscle weakness (generalized); Imbalance 03/02/2025 Travel 02/26/2025 Telephone [facility] [address], [address] [place] [address] Whitney Johnson MD 02/23/2025 Travel from Last 3 Months Immunizations Immunization Administration Dates Next Due Influenza, High-dose, Split Virus, Trivalent, Injectable, preservative free 08/04/2024,07/25/2020 Influenza, high-dose, quadrivalent 07/27/2022, Influenza, injectable, quadrivalent, preservativ e free 07/28/2019 Pneumococcal Conjugate PCV 13 04/05/2020 Pneumococcal Polysaccharide PPV23 10/30/2022 Family History Medical History Relation Name Comments Stroke Father Lloyd Butterfield Relation Name Status Comments Father Lloyd Butterfield Social History Tobacco Use Types Packs/Day Years [...] Orientation Straight 10/22/2024 1: 49 PM EST Last Filed Vital Signs Vital Sign Reading Time Taken Comments Blood Pressure 128/73 03/15/2025 10:57 AM EDT Pulse 76 03/15/2025 10:57 AM EDT Temperature 36.4 C (97.6 F) 10/29/2024 10:27 AM EST Respiratory Rate - - Oxygen Saturation 98% 10/29/2024 10:27 AM EST Inhaled Oxygen Concentration - - Weight 79.4 kg (175 lb) 03/15/2025 10:57 AM EDT Height 185.4 cm (6' 1 ) 03/15/2025 10:57 AM EDT Body Mass Index 23.09 03/15/2025 10:57 AM EDT Plan of Treatment Health Maintenance Due Date Last Done Comments [facility]-Medicare Annual Wellness (AWV) 1941 [facility]-Infant/Child/Adol SDOH Screenings 1941 [facility]- SDOH Screenings 1959 [facility]-Adult SDOH Screenings 1959 [facility]-DTaP,Tdap,and Td Vaccines (1 - Tdap) 1960 [facility]-Zoster Vaccines (1 of 2) 1991 [facility]-RSV Vaccine: 60+ Years or (1 - 1-dose 75+ series) 2016 [id number] Vaccine ( season) 2024 06/28/2021, 12/14/2020, 11/16/2020 [facility]-Depression Screening 03/15/2026 03/15/2025, 10/14 [facility]-Pneumococcal Vaccine: 50+ Years Completed 10/30/2022, 04/05/2020 [facility]-Influenza Vaccine Completed 08/04/2024 , 07/27/2022, 08/17/2021, Additional history exists HPV Vaccines Aged Out No longer eligi ble based on patient's age to complete this topic [facility]-HIB Vaccines Aged Out No longer e ligible based on patient's age to complete this topic [facility]-Hepatitis A Vaccines Aged Out No longer eligible based on patient's age to complete this topic [facility]-IPV Vaccines Aged Out No longer e ligible based on patient's age to complete this topic [facility]-Rotavirus Vaccines Aged Out No lo nger eligible based on patient's age to complete this topic Insurance MEDICARE [facility] Care Teams Carpet Or Rug Layer Helper Relationship Specialty Start Date End Date Ortiz Lockhart MD [address] [place] [address] PCP - General 09/02/24
--- OUTSIDE RECORDS SUMMARY | 2025-03-23 08:23 | XMS_ITS | Encounter Summary ---
Author Organization [facility] Address [address] [place] [address] Care Team Providers Care Reconciliation Specialist Name Role Phone Ortiz Lockhart MD Primary Care Provider +1- [phone] Encounter Details Date Type Department Care Team (Late st Contact Info) Description 03/17/2025 Telephone [place] [facility] [address], [address] [place] [address] Christian Beard MD [address] [place] [address] Social History Tobacco Use Types [...] encounter Miscellaneous Notes * Telephone Encounter - Winifred Weston RN - 03/17/2025 3:37 PM EDT Faxed all earlier. Confirmation ok. * Telephone Encounter - Argenis Corrie Cam - 03/17/2025 3:21 PM EDT Order, auth and demographics faxed this date. Called pt to inform. * Telephone Encounter - Radha Allan - 03/17/2025 1:21 PM EDT Patient Phone Message Reason for Call: calling to get orders for Mri and labs done at [facility]. Please advise Best contact number and optimal time of day to reach caller: [phone] Note: Please do not reply to this message. Follow-up communication and further actions as a result of this message need to be communicated with the patient directly, if the patient is not active onMyChart. If the patient is active on MyChart, they will receive notification of the communication/outcome via [employer]. documented in this encounter Plan of Treatment [...] documented as of this encounter Care Teams Reconciliation Specialist Relationship Specialty Start Date End Date Ortiz Lockhart MD [address] [place] [address] PCP - General 09/02/24 documented as of this encounter
--- OUTSIDE RECORDS SUMMARY | 2025-03-23 08:23 | XMS_ITS | Patient Health Record ---
Author Organization [facility] Address [address] [place] [id number] Care Team Providers Care Truck Assembler Name Role Phone Michael Lokchart Primary Care Provider Allergies No Known Allergies Results Component Value Reference Range Notes P-Testosterone, Free, Bioava ilable, and Total (Adult Male) Reviewed date:08/30/2024 07:45:41 PM Interpretation:Abnormal Performing Lab: Notes/Report: Test performed by [facility] [address] , [address], [place] [address] Parviz Birmingham MD, Buckle Stapler CLIA: [id number] Testosterone Total 1156.00 264.00-916.00 ng/dL Sex Hormone Binding Globulin (SHBG) 109.0 19.3-76.4 nmol/L Free Testosterone, Percent 0.97 1.60-2.90 % Free Testosterone (calculation) 112 47-244 pg/mL Testosterone Bioavailable 275 131-682 ng/dL P-Testosterone, Free, Bioava ilable, and Total (Adult Male) Reviewed date:07/14/2024 11:15:46 AM Interpretation: Performing Lab: Notes/Report: CBC Venipuncture (in house) Reviewed date:07/14/2024 11:15:32 AM Interpretation: Performing Lab: Notes/Report: P-PSA Reviewed date:11/09/2024 10:41:42 AM Interpretation:Normal Performing Lab: Notes/Report: Test performed by [facility] [address], [address], [place] [address] Parviz Birmingham MD, Buckle Stapler CLIA: [id number] PSA 1.22 <4.00 ng/mL Please note this is an ultrasensitive PSA assay with a lower limit of detection of 0.014 ng/mL. This test is performed by the Tarun ECLIA methodology. Values obtained with different assay methods or kits cannot be directly compared. P-Lipid Panel Reviewed date:11/09/2024 10:41:42 AM Interpretation:Normal Performing Lab: Notes/Report: Test performed by [facility], [address] , [address], [place] [address] Parviz Birmnigham MD, Buckle Stapler CLIA: [id number] Cholesterol 184 <200 mg/dL Triglycerides 66 <150 [...] Results: 99 Units: mg/dL % Change: +17% P-Comprehensive Metabolic Pa jonathon (CMP) Reviewed date:11/09/2024 10:41:42 AM Interpretation:Normal Performing Lab: Notes/Report: Test performed by [facility], [address] , [address], [place] [address] Parviz Birmingham MD, Buckle Stapler CLIA: [id number] Sodium 137 135-145 mmol/L Potassium 4.6 3.5-5.3 [...] 0.5 <0.2-1.2 mg/dL A/G Ratio 1.6 1.1-2.5 P-Testosterone Total (Adult Male) Reviewed date:07/16/2024 08:51:54 AM Interpretation:Normal Performing Lab: Notes/Report: Test performed by [facility] [address] [place] [address] , [address], [place] [address] Parviz Birmingham MD, Buckle Stapler CLIA: [id number] Testosterone Total 497.00 264.00-916.00 ng/dL CBC Fingerstick (in house) Reviewed date:07/16/2024 04:43:39 PM Interpretation:Normal Performing Lab: Notes/Report: Normal wbc 4.4 3.5 - 10 lym 34.3 15 - 50 mid 7.8 2 - 15 gran 57.9 35 - 80 rbc 3.64 3.5 - 5.5 hgb 12.2 11.5 - 16.5 hct 35.8 35 - 55 mcv 98.3 75 - 100 mch 33.6 25 - 35 mchc 34.1 31 - 38 plat 228 100 - 400 P-Testosterone, Free, Bioava ilable, and Total (Adult Male) Reviewed date:07/16/2024 04:43:39 PM Interpretation:shbg 124, free test 43 Performing Lab: Notes/Report: Test performed by [facility] [address] [place] [address] , [address], [place] [id number] Parviz Birmingham MD, Buckle Stapler CLIA: [id number] Testosterone Total 568.00 264.00-916.00 ng/dL Sex Hormone Binding Globulin (SHBG) 124.0 19.3-76.4 nmol/L Free Testosterone, Percent 0.76 1.60-2.90 % Free Testosterone (calculation) 43 47-244 pg/mL Testosterone Bioavailable 105 131-682 ng/dL P-Testosterone, Free, Bioava ilable, and Total (Adult Male) Reviewed date:07/15/2024 11:44:31 AM Interpretation: Performing Lab: Notes/Report: P-TSH Reviewed date:05/12/2024 10:41:10 PM Interpretation:Normal Performing Lab: Notes/Report: Test performed by [facility] [address] [place] [address] , [address], [place] [address] Parviz Birmingham MD, Buckle Stapler CLIA: [id number] TSH 1.67 0.43-5.25 mU/L P-Lipid Panel Reviewed date:05/12/2024 10:41:10 PM Interpretation:Normal Performing Lab: Notes/Report: Test performed by [facility] [address] [place] [address] , [address], [place] [address] Parviz Birmingham MD, Buckle Stapler CLIA: [id number] Cholesterol 173 <200 mg/dL Triglycerides 47 <150 mg/dL HDL Cholesterol 80 >39 mg/dL Cholesterol / HDL Ratio 2.16 0.00-4.99 Ratio Non-HDL Cholesterol 93 <130 mg/dL LDL Cholesterol (Calculation) 84 <130 mg/dL LDL Cholesterol Levels* Less than 100 mg/dL Optimal 100 to 129 mg/dL Near Optimal/ Above Optimal 130 to 159 mg/dL Borderline High 160 to 189 mg/dL High 190 mg/dL and above Very High * Categories as recommended by the 2004 ATPIII guidelines LDL/HDL Ratio 1.0 <3.3 Ratio LDL Cholesterol Patient History Test Date: 10/30/2022 LDL Results: 90 Units: mg/dL % Change: +4% Test Date: 11/07/2023 LDL Results: 94 Units: mg/dL % Change: +4% Test Date: 05/07/2024 LDL Results: 84 Units: mg/dL % Change: -10% P-Testosterone, Free, Bioava ilable, and Total (Adult Male) Reviewed date:05/12/2024 10:41:10 PM Interpretation:free testosterone low Performing Lab: Notes/Report: Test performed by [facility] [address] [place] , [place] [address] Parviz Birmingham MD, Buckle Stapler CLIA: [id number] Testosterone Total 498.00 264.00-916.00 ng/dL Sex Hormone Binding Globulin (SHBG) 111.0 19.3-76.4 nmol/L Free Testosterone, Percent 0.83 1.60-2.90 % Free Testosterone (calculation) 41 47-244 pg/mL Testosterone Bioavailable 97 131-682 ng/dL L-B-Nvukxzed Protein (CRP) Reviewed date:05/12/2024 10:41:10 PM Interpretation:Normal Performing Lab: Notes/Report: Test performed by [facility] [address] [place], [place] [address] [place] [address], [place] [address] Parviz Birmingham MD, Buckle Stapler CLIA: [id number] C-Reactive Protein (CRP) 0.10 <0.50 mg/dL P-CPK Reviewed date:05/12/2024 10:41:10 PM Interpretation:Normal Performing Lab: Notes/Report: Test performed by [facility] [address] [place], [place] [address] [place] , [address] , [place] [address] Parviz Birmingham MD, Buckle Stapler CLIA: [id number] Creatine Kinase 65 20-200 U/L P-Comprehensive Metabolic Pa jonathon (CMP) Reviewed date:05/12/2024 10:41:10 PM Interpretation:Na 134 Performing Lab: Notes/Report: Test performed by [facility] [address] [facility] , [address], [place] [address] Parviz Birmingham MD, Buckle Stapler CLIA: [id number] Sodium 134 135-145 mmol/L Potassium 4.8 3.5-5.3 mmol/L Chloride 98 97-108 mmol/L CO2 27 22-32 mmol/L Glucose 92 65-99 mg/dL BUN 15 8-23 mg/dL Creatinine 0.98 0.70-1.30 mg/dL Calcium 9.4 8.6-10.4 mg/dL eGFR by Creatinine 77 >59 mL/min/1.73m2 Protein 6.8 6.0-8.3 g/dL Albumin 4.3 3.5-5.3 g/dL Alkaline Phosphatase 90 40-129 IU/L ALT (SGPT) 10 <5-55 IU/L AST (SGOT) 9 <5-46 IU/L Bilirubin, Total 0.4 <0.2-1.2 mg/dL A/G Ratio 1.7 1.1-2.5 mg/dL Reason For Referral Reason referral to neuro logy for muscle weakness; r/o neuromuscular disorder Diagnosis 1 Muscle weakness (M62 .81) Referral Organization [facility] Referring Provider First Name Michael Renner Referring Provider Last Name Chantelle Referring Provider Speciality [facility] Enrique ctmarlon Referred Provider Neurology, . Referred Provider Specialty Neurology General Notes Heike Iqbal 024 1:12:41 PM > submitted to under [employer] Referral Priority Routine Medications Medication SIG (Take, Route, Frequency, Duration) Notes Start Date End Date Status hydroCHLOROthiazide 12.5 MG 1 tab(s) ora lly once a day for 90 days Active Benazepril HCl 20 MG 1 tab(s) orally onc e a day for 90 days Active Multivitamin - 1 tab(s) orally once a day Active Aspirin Adult Low Dose 81 MG 1 tab(s) or ally once a day Active amLODIPine Besylate 10 MG 1 tab(s) orall y once a day for 90 days Active Immunizations Vaccine Route Administration Date Status Comme nts Fluzone High Dose (65yr and older) IM Intramuscular 09/11/2018 Administered Fluzone High Dose (65yr and older) IM Intramuscular 07/25/2020 Administered Fluzone High Dose (65yr and older) IM Intramuscular 08/17/2021 Administered Given by: Gurdeep Gallego Fluzone High Dose (65yr and older) Unknown 07/27/2022 Administered Fluzone High Dose (65yr and older) IM Intramuscular 08/13/2023 Administered Fluzone PF Quad (6-35 months) Unknown 07/28/2019 Administered PNEUMOVAX 23 VACCINE IM Intramuscular 10/30/2022 Administered COVID 19 Moderna Unknown 11/16/2020 Administered COVID 19 Moderna Unknown 12/14/2020 Administered COVID 19 Moderna Unknown 06/28/2021 Administered Prevnar (PCV13) IM Intramuscular 04/05/2020 Administered Problems Problem Type SNOMED Code ICD Code Onset Dates Problem Status W/U Status Risk Notes Problem 17238177 Essential hypertension (I10) Active confirmed Problem 071748002 Pulmonary nodule seen on imaging study (R91.1) Active confirmed Problem 129179470 Adenomatous poly p of colon, unspecified part of colon (D12.6) Active confirmed Problem 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) Active confirmed Problem 154881943 Hx of renal cell cancer (Z85.528) Active confirmed Problem 329403882 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 Vital Signs Heart Rate 64 /min 11/05/2024 Blood pressure diastolic 70 mm Hg 11/05/2024 Height 72 in 11/05/2024 Blood pressure systolic 138 mm Hg 11/05/2024 Weight 181.2 lbs 11/05/2024 BMI 24.57 kg/m2 11/05/2024 Encounters Encounter Location Date Provider Diagnosis [place] [address] [facility] [address] [place] [id number] 05/07/2024 R Zurdo Lockhart Essential hypertensi on I10 ; Hx of renal cell cancer Z85.528 ; Status post nephrectomy Z90.5 ; Leg weakness R29.898 and Low testosterone in male E29.1 [facility] [address] [facility] [address] [place] [id number] 07/13/2024 R Zurdo Lockhart Low testosterone in male E29.1 [place] [address] [facility] [address] [place] [id number] 07/14/2024 R Zurdo Chantelle Low testosterone in male E29.1 [facility] [address] [place], [place] [id number] 08/20/2024 R Zurdo Chantelle Low testosterone in male E29.1 [facility] [address] [place], [place] [id number] 11/05/2024 R Zurdo Chantelle Prostate cancer screening Z12.5 ; Essential hypertension I10 and Muscle weakness M62.81 [facility] [address] [place], [place] [id number] 05/12/2024 R Zurdo Chantelle [facility] [address] [place], [place] [id number] 07/13/2024 R Zurdo Chantelle Low testosterone E29 .1 [facility] [address] [place], [place] [id number] 07/16/2024 R Zurdo Chantelle [facility] [address] [place], [place] [id number] 08/27/2024 R Zurdo Chantelle Muscle weakness M62. 81 [facility] [address] [place], [place] [id number] 11/09/2024 R Zurdo Chantelle Assessments Encounter Date Diagnosis (ICD Code) Assessment Notes Treatment Notes Treatment Clinical Notes Section Notes 05/07/2024 Essential hypertension (ICD-10 - I10) 05/07/2024 Hx of renal cell cancer (ICD-10 - Z85.528) 07/14/2024 Low testosterone in male (ICD-10 - E29.1) 08/20/2024 Low testosterone in male (ICD-10 - E29.1) Recheck testosterone levels. If they remain low, will recommend urology consultation for possible injection therapy. If however his levels are normal and he is still having symptoms, may need to pursue other etiologies of his leg weakness by way of neurology consultation. 08/27/2024 Muscle weakness (ICD-10 - M62.81) 11/05/2024 Essential hypertension (ICD-10 - I10) 11/05/2024 Prostate cancer screening (ICD-10 - Z12.5) 07/13/2024 Low testosterone (ICD-10 - E29.1) 07/13/2024 Low testosterone in male (ICD-10 - E29.1) 11/05/2024 Muscle weakness (ICD-10 - M62.81) Continue follow-up with neurology 05/07/2024 Status post nephrectomy (ICD-10 - Z90.5) left 05/07/2024 Leg weakness (ICD-10 - R29.898) 05/07/2024 Low testosterone in male (ICD-10 - E29.1) Plan Of Treatment Next Appt Details Provider Name:Michael Zurdo Arce ramya, 2025 09:45:00 AM, [address], [place], [place], [id number], Insurance Providers Payer Name Payer Address Payer Phone Subscriber Number Group Number Insured Name Patient Relationship to Insured Coverage Start Date Coverage End Date MEDICARE PART B [address] [address] [id number] [id number] ELISE NIEVES Self - patient is the insured [facility] [address] [place] [address] [phone] [id number] ELISE NIEVES Self - patient is the insured Medical (General) History Medical History History ICD Code HTN 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 Birch/ mild diverticulosis; no polyps 05/31/22 Hospitalization History Reason Date(Month/Year) [facility] ER-broken ribs, left side 09/12/17 [facility]-stomach pain 07/2019
== END 2025-03-23 23:59 | disposition home or self-care (01) ==
LOC: LAB 08:14
PROVIDERS: PCP Family Medicine; Visit Provider Student in an Organized Health Care Education/Training Program
DX: R41.3 Other amnesia (principal); M62.81 Muscle weakness (generalized)
CPT/HCPCS: 36415; 82746; 87476

== ENCOUNTER 2025-03-24 14:25 | Outpatient (CLI) | payer MEDICARE, SELFPAY ==
--- OUTSIDE RECORDS SUMMARY | 2025-03-02 11:00 | XMS_ITS | Encounter Summary ---
Author Organization [facility] Address [address] [place] [address] Care Team Providers Care Edging Machine Catcher Name Role Phone Ortiz Lockhart MD Primary Care Provider [phone]- [phone] Reason for Visit * Other Medical (Routine) - Closed Specialty Diagnoses / Procedures Referred By Phoebe corley Referred To Contact Neurology Diagnoses Muscle weakness (generalized) Imbalance Procedures EMG / Nerve Conduction Study Christian Beard MD [address] [address] Phone: tel: fax: Referral ID Status Reason Start Date Expiration Date V isits Requested Visits Authorized [id number] Closed Specialty Services Required 10/29/2024 04/30/2026 1 1 Encounter Details Date Type Department Care Team (Latest Contact Info) Description 03/02/2025 11:00 AM EDT Procedure Visit [facility] [address] [place] [address] Whitney Johnson MD [id number] [place] [address] Muscle weakness (generalized); Imbalance Social History Tobacco Use Types Packs/Day Years Used Date Smoking Tobacco: Never Smokeless Tobacco: Never Alcohol Use Standard Drinks/Week Comments Yes 28 (1 standard drink = 0.6 oz pu re alcohol) Mixed Drink Once a week PHQ-2 Answer Date Recorded Patient Health Questionnaire-2 Score 0 10/29/2024 PHQ-9 Answer Date Recorded Patient Health Questionnaire-9 Score 0 10/29/2024 Sex and Gender Information Value Date Recorded Sex Assigned at Male 10/22/2024 1:49 PM EST Legal Sex Male 4:51 PM EST Gender Identity Male 10/22/2024 1:49 PM EST Sexual Orientation Straight 10/22/2024 1: 49 PM EST documented as of this encounter Miscellaneous Notes * Progress Notes - Whitney Johnson MD - 03/02/2025 11:00 AM EDT Images from the original note were not included. Attached media from the original note were not included. [facility] Neuromuscular Medicine Program Electromyography Laboratory Report Date of Service: 03/03/2025 Patient Name: Danilo Butterfield MRN: ?[id number] ??Date of : 1940 ? Referring provider: Christian Beard Md [address] [address] Clinical impression: 84 y.o. male presents with weakness in thighs bilaterally. He has toe weaknessand absent reflex on exam . Gait was wide based. Specific questions: Assess for neuropathy vs myopathy Referring provider: Christian Beard MD Temperature of Extremities: 32.5 Upper degrees C 32.5 Lower degrees C Reason for EMG: neuropathy vs myopathy Physician statement: This procedure has been fully reviewed with the patient and verbal informed consent has been obtained. Attending Physician: Whitney Johnson MD. I was present throughout the procedure and performed all significant techniques including, but not limited to, data interpretation, needle electrode examination and report generation. Techical summary Nerve conduction in the standard fashion utilizing published Hewitt technique and normative data (seebelow). Electromyography via standard bipolar [unless otherwise specified] needle technique (Leandro 2013 4th ed, [employer]). NCS Study: Sensory Leg [] Left [] Right [] Bilateral Arm [] Left [] Right [] Bilateral Sensory and/or Motor Leg [] Left [x] Right [] Bilateral Arm [] Left [x] Right [] Bilateral Number of nerves tested: 8 EMG Study Full Study Leg [] Left [x] Right [] Bilateral Arm [] Left [] Right [] Bilateral Cranial [] Left [] Right [] Bilateral Thoracic PS [] Left [] Right [] Bilateral Partial Study Leg [] Left [] Right [] Bilateral Arm [] Left [] Right [] Bilateral Number of muscles tested: 5 EMG: Side Muscle IA Fibs PSW Fasc H.F. Amp Dur PPP Recrt Comment Right Tibialis anterior Nml None None None None + Nml + Reduced Vastus lateralis Nml None None None None Nml Nml + Reduced Medial Gastroc Nml None None None None Nml Nml + Reduced Gluteus Medius Nml None None None None Nml Nml Nml Nml Lumbar Paraspinals Nml None None None None Nml Nml Nml Nml Interpretation: The right sural sensory study showed reduced amplitude (<3, age 84 ) The right median , ulnar and radial sensory study showed mildly reduced amplitude with normal peak latency and CV The right peroneal motor and tibial motor studies showed reduced amplitude with normal latency and borderline velocity The right median and ulnar motor studies were normal. Gume Rohit anastomosis was noted from median to ulnar across the forearm segment. 5. 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 Normal values: Sensory Nerve Distal Distance (cm) Segment Peak Latency (ms) Amplitude (uV) Velocity (m/s) Median (Orthodromic) 8 Palm - Wrist <2.2 >50 >50 Ulnar (Orthodromic) 8 Palm - Wrist <2.2 >15 >50 Radial 10 Forearm - Snuffbox <2.8 >19 >50 Sural 14 Posterior Leg - Foot <4.0 >6 >40 Superficial Peroneal 14 Lateral Leg - Foot <4.0 >6 >40 Motor Nerve Distal Distance (cm) Distal Latency (ms) Amplitude (mV) Velocity (m/s) F Latency (ms) Median - APB 7 <4.6 >4 >50 <31 Ulnar - ADM 7 <3.5 >6 >50 <32 Peroneal - EDB 8 <7.0 >2 >40 <57 Tibial - AHB 8 <6.0 >4 >40 <57 Whitney Johnson M.D. Neuromuscular Division Quality Inspector Neurology [facility] [phone] documented in this encounter Plan of Treatment Not on file documented as of this encounter Visit Diagnoses Diagnosis Muscle weakness (generalized) Imbalance Abnormality of gait documented in this encounter Additional Health Concerns Assessment Noted Time PHQ-9 Depression Total Score: 0 10/29/19 25 10:26 AM EST A fall risk assessment has been complete d for the patient 10/29/2024 10:26 AM EST A Body Mass Index follow-up plan has been documented for the patient 03/03/2025 6:18 PM EDT documented as of this encounter Care Teams Edging Machine Catcher Relationship Specialty Start Date End Date Ortiz Lockhart MD [address] [place] [address] PCP - General 09/02/24 documented as of this encounter
--- OUTSIDE RECORDS SUMMARY | 2025-03-15 11:30 | XMS_ITS | Encounter Summary ---
Author Organization Healthcare Address [address] [place] [address] Care Team Providers Care Platform Material Handler Manager Name Role Phone Ortiz Lockhart MD Primary Care Provider +1- [phone] Reason for Referral * Consultation (Routine) - Pending Review Specialty Diagnoses / Procedures Referred By Phoebe corley Referred To Contact Physical Therapy Diagnoses Imbalance Christian Beard MD [address] [address] Phone: tel: fax: Referral ID Status Reason Start Date Expiration Date Visits Requested Visits Authorized [id number] Pending Review Specialty Services Required 03/15/2025 09/14/2026 1 1 * Imaging (Routine) - Closed Specialty Diagnoses / Procedures Referred By Phoebe corley Referred To Contact Diagnoses Imbalance Procedures MR Lumbar Spine wo IV Contrast Christian Beard MD [address] [address] Phone: tel: fax: [facility] () [address] [place] [address] Phone: tel: fax: Referral ID Status Reason Start Date Expiration Date Visits Re quested Visits Authorized [id number] Closed 03/15/2025 09/14/2026 1 1 Reason for Visit * Reason Comments Follow-up Encounter Details Date Type Department Care Team (Latest Contact Info) Description 03/15/2025 11:30 AM EDT Office [facility] [address], [address] [place] [address] Christian Beard MD [address] [place] [address] Muscle weakness (generalized) (Primary Dx); [...] Patient confirms they are physically located in [place]? Yes If the patient is not physically located in [place], the provider has confirmed with [facility] thatthe provider is authorized to provide services in patient's stated location? N/A Provider Location: [facility] facility Audio and video or audio only? Audio and video Total visit time: 40 minutes NEUROMUSCULAR CLINIC NOTE Patient Name: Danilo Butterfield MRN: [id number] ??Date of : 1940 ?Date of Clinic Visit: 03/15/25 Primary Care Provider: Ortiz Lockhart MD [address] [place] [address] CHIEF COMPLAINT: Weakness in both thighs and imbalance HISTORY OF PRESENT ILLNESS: Initial history: Danilo Butterfield is a 84 y.o. male presenting [...] HISTORY: Past Medical History: Diagnosis Date Cancer ([facility]) October 2005 Dementia ([facility]) Difficulty walking Hypertension Memory loss Tremor [...] (one) time each day., Disp: , Rfl: jceeerurjifz-xadlymlz-wiclx acid-coenzyme q10 (Preservision AREDS 2) capsule, Take 2 capsules by mouth., Disp: , Rfl: PHYSICAL EXAM: General: Well-appearing male in no apparent distress Tele visit. Limited exam. LABS/IMAGING: I personally reviewed prior laboratory studies, imaging studies and relevant tests. NCS/EMG by Dr. 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 IMPRESSION: Danilo Butterfield is a 84 y.o. male presenting [...] would like to have it done at [address] Mr[address] Butterfield reports difficulties with short-term [...] a total of 40 minutes in both nzsw-bb-roms and non lnlc-vv-osmu activities for this visit on the date of this encounter. Christian Beard MD Neuromuscular Medicine Program Department of Neurology [facility] documented in this encounter Plan of Treatment [...] documented as of this encounter Care Teams Platform Material Handler Manager Relationship Specialty Start Date End Date Ortiz Lockhart MD [address] [place] [address] PCP - General 09/02/24 documented as of this encounter
--- NOTE | 2025-03-24 14:28 | MR_ITS ---
FINAL REPORT CLINICAL HISTORY: weakness in both legs, mostly the thigh area COMPARISON: None FINDINGS: Multiplanar MR imaging of the lumbar spine was performed without contrast. On the sagittal T2-weighted images, there is abnormal decreased signal throughout the lumbar discs. The vertebrae are of normal height. The vertebral alignment is normal. L1-2: Mild annular bulge is present with a small left posterolateral disc protrusion, and mild left neural foraminal narrowing. L2-3: A mild to moderate annular bulge is present with bilateral posterolateral disc protrusions, and mild to moderate bilateral neural foraminal narrowing. L3-4: A mild annular bulge is present with mild bilateral neural foraminal narrowing. There is a small right synovial cyst with asymmetric thickening of the ligamentum flavum measuring up to 8 mm in size. This is best seen on image #13 of series 5. L4-5: A moderate annular bulge is present with bilateral facet hypertrophy and moderate bilateral neural foraminal narrowing. L5-S1: A moderate annular bulge is present with endplate hypertrophy eccentric to the left, moderate left and mild right neural foraminal narrowing. IMPRESSION: Multilevel lumbar degenerative change is present, most pronounced in the lower lumbar spine as described. Reviewed, Interpreted and Dictated by Aleksandr Rothman MD Transcribed by Fariha Romero Authenticated and [facility]
--- OUTSIDE RECORDS SUMMARY | 2025-03-24 14:29 | XMS_ITS | Encounter Summary ---
Author Organization [facility] Address [address] [place] [address] Care Team Providers Care Director Of Product Development Name Role Phone Ortiz Lockhart MD Primary Care Provider +1- [phone] Encounter Details Date Type Department Care Team (Late st Contact Info) Description 02/26/2025 Telephone [place] [facility] [address], [address] [place] [address] Whitney Johnson MD [address] [place] [address] Social History Tobacco Use Types [...] documented as of this encounter Care Teams Director Of Product Development Relationship Specialty Start Date End Date Ortiz Lockhart MD [address] [place] [address] PCP - General 09/02/24 documented as of this encounter
--- OUTSIDE RECORDS SUMMARY | 2025-03-24 14:29 | XMS_ITS | Encounter Summary ---
Author Organization [facility] Address [address] [place] [address] Care Team Providers Care Garage Door Hanger Name Role Phone Ortiz Lockhart MD Primary Care Provider +1- [phone] Encounter Details Date Type Department Care Team [...] documented as of this encounter Care Teams Garage Door Hanger Relationship Specialty Start Date End Date Ortiz Lockhart MD [address] [place] [address] PCP - General 09/02/24 documented as of this encounter
--- OUTSIDE RECORDS SUMMARY | 2025-03-24 14:29 | XMS_ITS | Clinical Summary ---
Author Organization [facility] Address [address] [place] [address] Care Team Providers Care Cv Tech Name Role Phone Ortiz Lockhart MD Primary Care Provider +1- [phone] Allergies No known active allergies Medications amLODIPine [...] Type Department Care Team Description 03/17/2025 Telephone [facility] [address], [address] [place] [id number] Christian Beard MD 03/15/2025 11:30 AM EDT Office Visit [facility] [address], [address] [place] [address] Christian Beard MD Muscle weakness (generalized) (Primary Dx); Imbalance; Memory changes; Lumbosacral radiculopathy; Peripheral polyneuropathy 03/13/2025 Travel 03/11/2025 Telephone [facility] [address], [address] [place] [address] Christian Beard MD 03/02/2025 11:00 AM EDT Procedure Visit [facility] [address] [place] [address] Whitney Johnson MD Muscle weakness (generalized); Imbalance 03/02/2025 Travel 02/26/2025 Telephone [facility] [address], [address]st [place] [address] Whitney Johnson MD 02/23/2025 Travel from Last [...] or (1 - 1-dose 75+ series) 2016 [id number] Vaccine ( season) 2024 06/28/2021, 12/14/2020, 11/16/2020 [...] age to complete this topic Insurance MEDICARE [facility] Care Teams Cv Tech Relationship Specialty Start Date End Date Ortiz Lockhart MD [address] [place] [address] PCP - General 09/02/24
--- OUTSIDE RECORDS SUMMARY | 2025-03-24 14:29 | XMS_ITS | Encounter Summary ---
Author Organization Healthcare Address [address] [place] [address] Care Team Providers Care Lap Winder Name Role Phone Ortiz Lockhart MD Primary Care Provider +1- [phone] Encounter Details Date Type Department Care Team (Late st Contact Info) Description 03/17/2025 Telephone [place] [facility] [address] [place] [address] Christian Beard MD [address] [place] [address] Social History Tobacco Use Types [...] Telephone Encounter - Elvira Kimble RN - 03/24/2025 9:45 AM EDT Lab results requested. Folate has resulted. Lyme is still pending. Lumbar MRI is scheduled to be done today. * Telephone Encounter - Winifred Weston RN - 03/17/2025 3:37 PM EDT Faxed all earlier. Confirmation ok. * Telephone Encounter - Corrie More - 03/17/2025 3:21 PM EDT Order, auth and demographics faxed this date. Called pt to inform. * Telephone Encounter - Radha Allan - 03/17/2025 1:21 PM EDT Patient Phone Message Reason for Call: calling to get orders for Mri and labs done at [facility]. Please advise Best contact number and optimal time of day to reach caller: [phone] Note: Please do not reply to this message. Follow-up communication and further actions as a result of this message need to be communicated with the patient directly, if the patient is not active onMyChart. If the patient is active on MyChart, they will receive notification of the communication/outcome via FlagTap. documented in this encounter Plan of Treatment [...] documented as of this encounter Care Teams Lap Winder Relationship Specialty Start Date End Date Ortiz Lockhart MD [address] [place] [address] PCP - General 09/02/24 documented as of this encounter
--- OUTSIDE RECORDS SUMMARY | 2025-03-24 14:29 | XMS_ITS | Encounter Summary ---
Author Organization [facility] Address [address] [place] [address] Care Team Providers Care Senior Economist Name Role Phone Ortiz Lockhart MD Primary Care Provider +1- [phone] Encounter Details Date Type Department Care Team [...] documented as of this encounter Care Teams Senior Economist Relationship Specialty Start Date End Date Ortiz Lockhart MD [address] [place] [address] PCP - General 09/02/24 documented as of this encounter
--- OUTSIDE RECORDS SUMMARY | 2025-03-24 14:29 | XMS_ITS | Encounter Summary ---
Author Organization Healthcare Address [address] [place] [address] Care Team Providers Care Battery Starter Name Role Phone Ortiz Lockhart MD Primary Care Provider +1- [phone] Encounter Details Date Type Department Care Team (Late st Contact Info) Description 03/11/2025 Telephone [facility] [address] [facility] [address], [address] [place] [address] Christian Beard MD [address] [place] [address] Social History Tobacco Use Types [...] address. PT order has been faxed to [address] in [place]. The [place] location is currently not open (per staff at [address] Fax number [phone] * Telephone Encounter - Rakel Gifford - 03/11/2025 9:40 AM EDT Patient Phone Message Reason for Call: is calling to discuss EMG results and know follow up plan. Please advise. Best contact number and optimal time of day to reach caller: [phone] Note: Please do not reply to this message. Follow-up communication and further actions as a result of this message need to be communicated with the patient directly, if the patient is not active onMyChart. If the patient is active on MyChart, they will receive notification of the communication/outcome via InnoVital Systemst. documented in this encounter Plan of Treatment [...] documented as of this encounter Care Teams Battery Starter Relationship Specialty Start Date End Date Ortiz Lockhart MD [address] [place] [address] PCP - General 09/02/24 documented as of this encounter
--- OUTSIDE RECORDS SUMMARY | 2025-03-24 14:29 | XMS_ITS | Encounter Summary ---
Author Organization [facility] Address [address] [place] [address] Care Team Providers Care Cable Wirer Name Role Phone Ortiz Lockhart MD Primary Care Provider +1- [phone] Encounter Details Date Type Department Care Team [...] documented as of this encounter Care Teams Cable Wirer Relationship Specialty Start Date End Date Ortiz Lockhart MD [address] [place] [address] PCP - General 09/02/24 documented as of this encounter
== END 2025-03-24 23:59 | disposition home or self-care (01) ==
LOC: RAD 14:26
PROVIDERS: PCP Family Medicine; Visit Provider Student in an Organized Health Care Education/Training Program
DX: M47.816 Spondylosis without myelopathy or radiculopathy, lumbar region (principal)
CPT/HCPCS: 72148

== ENCOUNTER 2025-06-10 12:51 | Day surgery (SDC) | payer MEDICARE, SELFPAY ==
[2025-06-08 14:05] VITALS: BMI 22.4
--- NOTE | 2025-06-09 15:55 | P.HP_ITS ---
History of Present Illness *Admission Date: 06/10/25 *History of present illness: Mr. Butterfield is an 84-year-old gentleman who is here for screening/surveillance colonoscopy. The patient also has a personal history of multiple adenomatous colon polyps. The patient had a colonoscopy with me in June 2018 and had multiple large right-sided adenomatous polyps. His colonoscopy with me again in December 2018 revealed right-sided colonic polyps and these were all adenomatous. He did have a subsequent procedure with Dr. Bryan Jacobson M.D. September 2021 and the bowel preparation was poor but he had several polyps. Interestingly, his last examination by Rony Birch MD in May 2022 revealed no polyps. The patient has noted a change in bowel habits with smaller caliber stools ( quarter sized diameter ) and the feeling of incomplete defecation with some constipation. He reports no abdominal pain, weight loss, rectal bleeding, bloating or abdominal discomfort. Years ago he had been on Konsyl but this was stopped. He reports that his daughter had colon cancer diagnosed in the last 2 or 3 years at the age of 51. [facility] Disclaimer: The information contained in this section may have been updated after the patient was seen, as this information can be updated by other users. Medical History DDD (degenerative disc disease), lumbar Neuropathy Hypertension History of small bowel obstruction Hx of solitary pulmonary nodule Surgical History H/O spinal fusion History of nephrectomy Family History Other Family history non-contributory Social History (Updated 06/10/25 @ 13:24 by Yumiko Hurd RN) Smoking Status: Never smoker second hand exposure: No alcohol intake: current alcohol intake frequency: 3 or more drinks per day substance use type: denies use current occupational status: retired Travel in the last 8 weeks?: None household members: spouse housing: house current occupational exposures/hazards: No caffeine: Yes Have you lived/traveled outside US in past 30 days?: No Contact w/someone who lives/traveled outside US past 30 days?: No Exposure to someone with infectious disease in past 14 days?: No Do you have a fever (greater than 100.4 F or 38 C)?: No Have you tested positive for COVID-19?: No Exposed to someone with COVID-19 in past 14 days?: No Do you have a sore throat?: No Do you have a cough?: No Do you have any weakness?: No Are you experiencing any nausea/vomitting?: No Do you have any diarrhea?: No Are you experiencing any unusual bleeding?: No Do you have any muscle aches/pain?: No Do you have any abdominal pain?: No Are you experiencing loss of taste or smell?: No Other Medical History Have you received the Flu Vaccine for this season: Yes Have you received the Pneumonia Vaccine: Yes Review of Systems Review of Systems Review of systems (narrative): Negative *Cardiovascular Comments: Negative *Gastrointestinal Comments: Negative *Genitourinary Comments: Negative *Musculoskeletal Comments: Negative *Neurologic Comments: Negative Meds Home Medications and Allergies Home Medications ?Medication ?Instructions ?Recorded ?Confirmed ?Type amlodipine 10 mg tablet 10 mg PO DAILY Hypertension 06/30/18 06/10/25 History aspirin 81 mg tablet,delayed 81 mg PO DAILY Heart dise ase 06/30/18 06/10/25 History release benazepril 20 mg tablet 20 mg PO DAILY Hypertension 06/30/18 06/10/25 History hydrochlorothiazide 12.5 mg capsule 12.5 mg PO DAILY b p 05/31/20 06/10/25 History yhgmlwhsvmfs-hibzvlmz-rdewl acid 1 each PO DAILY Suppl ement 09/14/21 06/10/25 History 400 mcg-vitamin K 40 mcg capsule vit C 250 mg-vit E 90 mg-zinc 40 2 each PO DAILY eyes 09/14/21 06/10/25 History mg-copper 1 ol-yelldl-hfkkbv capsule sodium,potassium,mag sulfates 17.5 See Rx Instructions PO .COMPLEX 05/27/25 06/10/25 Rx gram-3.13 gram-1.6 gram oral soln #354 mL (Suprep Bowel Prep Kit) New Prescriptions to Start Prescriptions: Allergies Allergy/AdvReac Type Severity Reaction Status Date / Time No Known Allergies Allergy Verified 06/10/25 13:20 Exam Data for Last 24 hours I & O for Last 24 hours: Intake & Output 06/06/25 06/07/25 06/08/25 06/09/25 23:59 23:59 23:59 23:59 Weight 170 lb *Routine HEENT Exam Head: Present normocephalic Eye: Present EOMI and PERRL ENT: Present mucous membranes moist *Routine Neck Exam Neck: Present supple *Routine Respiratory Exam Respiratory: Present CTA bilaterally *Routine Cardiovascular Exam Cardiovascular: Present RRR *Routine Abdominal Exam Abdominal: Present soft and normoactive bowel sounds; Absent tenderness *Routine Rectal Exam Rectal:: deferred *Routine Genitalia Exam Genitalia:: deferred *Routine Extremities Exam Extremities: Absent cyanosis, clubbing or edema *Routine Skin Exam Skin: Present warm; Absent rash *Routine Neurological Exam Neurological: Present alert and oriented X3 Assessment and Plan *Assessment and plan (1) Personal history of adenomatous and serrated colon polyps: Status: Acute Category: Medical Code(s): Z86.0101 - Personal history of adenomatous and serrated colon polyps (2) Screening for colon cancer: Status: Acute Category: Medical Code(s): Z12.11 - Encounter for screening for malignant neoplasm of colon (3) Family history of colon cancer: Status: Acute Category: Medical Code(s): Z80.0 - Family history of malignant neoplasm of digestive organs Plan A/P: 1. Personal history of adenomatous colon polyps and family history of colon cancer is the preprocedural diagnosis. The patient will be anesthetized/sedated using MAC sedation. The patient has been seen and examined. Cardiac and lung assessment prior to the examination is stable. Proceed with planned screening/surveillance colonoscopy.
[2025-06-10 13:14] VITALS: BP 148/93; PULSE 79; RESP 18; TEMP 36.3; O2SAT 99
[2025-06-10] MEDS: LACTATED RINGERS 1000ML 1,000 ML 50 ML IV (13:41)
--- NOTE | 2025-06-10 13:46 | EXP.ANES.CKL ---
[facility] Disclaimer: The information contained in this section may have been updated after the patient was seen, as this information can be updated by other users. Medical History DDD (degenerative disc disease), lumbar Neuropathy Hypertension History of small bowel obstruction Hx of solitary pulmonary nodule Surgical History H/O spinal fusion History of nephrectomy Family History Other Family history non-contributory Social History (Updated 06/10/25 @ 13:24 by Yumiko Hurd RN) Smoking Status: Never smoker second hand exposure: No alcohol intake: current alcohol intake frequency: 3 or more drinks per day substance use type: denies use current occupational status: retired Travel in the last 8 weeks?: None household members: spouse housing: house current occupational exposures/hazards: No caffeine: Yes Have you lived/traveled outside US in past 30 days?: No Contact w/someone who lives/traveled outside US past 30 days?: No Exposure to someone with infectious disease in past 14 days?: No Do you have a fever (greater than 100.4 F or 38 C)?: No Have you tested positive for COVID-19?: No Exposed to someone with COVID-19 in past 14 days?: No Do you have a sore throat?: No Do you have a cough?: No Do you have any weakness?: No Are you experiencing any nausea/vomitting?: No Do you have any diarrhea?: No Are you experiencing any unusual bleeding?: No Do you have any muscle aches/pain?: No Do you have any abdominal pain?: No Are you experiencing loss of taste or smell?: No [facility] Anesthesia Checklist Patient Identification Patient Identification: Arm Band and Family Structural Data Admitted From: Home Planned Operative Procedure/s: Colonoscopy Consent for Planned Operative Procedure(s) Verified: Yes Verified Documents: Surgical Consent and History and Physical NPO Status Verified Time NPO: 00:00 Additional verifications Patient : No Anesthesia Reactions: No Hx Blood Transfusions: No Blood Transfusion Reaction: No Cephalosporin Allergy: No Previous Colonoscopy: Yes Airway Assessment Mallampati Score:: Class II C-Spine Mobility Assessed: Yes TMJ Mobility Assessed: Yes Dentition: Good Dentition Neurological Assessment Level of Consciousness: Awake, Alert, Appropriate and Follows Commands Hx Seizures: No Numbness or tingling in extremities: No Anesthesia Plan Anesthesia Risk discussed: Yes ASA Class: II Anesthesia Type: MAC Preoperative Comments Pre-Operative Comments: Screws in neck.
--- NOTE | 2025-06-10 14:02 | P.PCN_ITS ---
[facility] Procedure Note Date: 06/10/25 Time: 14:24 Procedure Note:: Colonoscopy Procedure Report: Colonoscopy with cold snare polypectomy Endoscopist: Juan C Leonard II, MD Referring physician: Zurdo Lockhart MD Date of Procedure: June 10, 2025 Equipment: Olympus [id number] adult colonoscope Sedation: MAC sedation Indication: Mr. Butterfield is an 85-year-old gentleman who is here for screening/surveillance colonoscopy. The patient also has a personal history of multiple adenomatous colon polyps. The patient had a colonoscopy with me in June 2018 and had multiple large right-sided adenomatous polyps. His colonoscopy with me again in December 2018 revealed right-sided colonic polyps and these were all adenomatous. He did have a subsequent procedure with Dr. Bryan Jacobson M.D. September 2021 and the bowel preparation was poor but he had several polyps. Interestingly, his last examination by Rony Birch MD in May 2022 revealed no polyps. The patient has noted a change in bowel habits with smaller caliber stools ( quarter sized diameter ) and the feeling of incomplete defec ation with some constipation. He reports no abdominal pain, weight loss, rectal bleeding, bloating or abdominal discomfort. Years ago he had been on Konsyl but this was stopped. He reports that his daughter had colon cancer diagnosed in the last 2 or 3 years at the age of 51. Procedure: Prior to the procedure, a history and physical exam was performed, and patient's medications and allergies were reviewed. The risks, benefits and alternatives of the sedation and procedure were discussed with the patient. All questions were answered and informed consent was obtained. The patient was brought to the procedure room. Patient identification and proposed procedure were verified by the physician and the nurse. The patient was placed in a left lateral decubitus position and the scope was passed under direct vision. Throughout the procedure, the patient's blood pressure, pulse, and oxygen saturations were monitored continuously. The colonoscopy was accomplished without difficulty. T he patient tolerated the procedure well. Findings: On digital rectal examination there was normal rectal tone. There were no external hemorrhoids. The colonoscope was introduced through the anal canal to the rectum and advanced to the cecum. The ileocecal valve and appendiceal orifice were identified. The scope was advanced a short distance into the ileum which appeared grossly normal. The scope was then withdrawn into the colon. There were 5 colon polyps (ascending x 1 (7 mm with an prior polypectomy fibrotic site), transverse x 1 (5 mm) and descending/sigmoid x 3 (4, 5 and 9 mm)). These were all removed via cold snare polypectomy. The remaining cecum, ascending and transverse colon and mucosa were grossly normal. There were extensively scattered diverticuli throughout the descending and sigmoid colon (LEFT colon). The rectum itself was normal. Upon retroflexion within the rectum there were grade 2 internal hemorrhoids. The preparation was excellent throughout with Holton Preparation Score of 9. The cecal time was 14 minutes. Impression: 1. Colonic polyps x 5 2. Extensive left-sided diverticulosis 3. Grade 2 internal hemorrhoids Plan: I will follow-up the polyp histology and I am not convinced that he will require any further preventive/screening colonoscopy. I will discuss the findings with the patient and family. I would encourage him to continue the fiber bowel regimen (combined MiraLAX plus Konsyl mixed together by mouth every morning).
[2025-06-10 14:26] VITALS: BP 83/42; PULSE 61; RESP 16; TEMP 36.1; O2SAT 97
[2025-06-10 14:36] VITALS: BP 101/56; PULSE 58; RESP 16; TEMP 36.1; O2SAT 100
[2025-06-10 14:46] VITALS: BP 124/70; PULSE 60; RESP 16; TEMP 36.1; O2SAT 100
[2025-06-10 14:56] VITALS: BP 125/70; PULSE 60; RESP 17; TEMP 36.1; O2SAT 100
== END 2025-06-10 15:03 | disposition home or self-care (01) ==
PROVIDERS: PCP Family Medicine; Visit Provider Internal Medicine Gastroenterology
PROC: 0DJD8ZZ Inspection of Lower Intestinal Tract, Via Natural or Artificial Opening Endoscopic (ICD-10-PCS; CPT 45378; principal; 2025-06-10 14:30)
DX: Z12.11 Encounter for screening for malignant neoplasm of colon (principal); D12.2 Benign neoplasm of ascending colon; D12.5 Benign neoplasm of sigmoid colon; K63.5 Polyp of colon; K57.30 Diverticulosis of large intestine without perforation or abscess without bleeding; G62.9 Polyneuropathy, unspecified; K64.1 Second degree hemorrhoids; I10 Essential (primary) hypertension; Z86.0101 Personal history of adenomatous and serrated colon polyps; Z80.0 Family history of malignant neoplasm of digestive organs; Z79.82 Long term (current) use of aspirin; Z79.899 Other long term (current) drug therapy
CPT/HCPCS: 45385; 88305; J2003; J2704; J7120

== ENCOUNTER 2025-06-17 14:13 | Outpatient (CLI) | payer MEDICARE, SELFPAY ==
--- OUTSIDE RECORDS SUMMARY | 2024-07-14 08:00 | XMS_ITS ---
Author Organization [facility] Address [address] [place] [id number] Care Team Providers Care Lottery Office Manager Name Role Phone Michael Lockhart Primary Care Provider Results Component Value Reference Range Notes P-Testosterone, Free, Bioava ilable, and Total (Adult Male) Reviewed date:07/16/2024 04:43:39 PM Interpretation:shbg 124, free test 43 Performing Lab: Notes/Report: Test performed by [email or web address] [address] [place] [address] , [address], [place] [address] Parviz Birmingham MD, Lead Nurse CLIA: [id number] Testosterone Total 568.00 264.00-916.00 ng/dL Sex Hormone Binding Globulin (SHBG) 124.0 19.3- 76.4 nmol/L Free Testosterone, Percent 0.76 1.60-2.90 % Free Testosterone (calculation) 43 47-244 pg /mL Testosterone Bioavailable 105 131-682 ng/dL REASON FOR VISIT blood work Medications Medication SIG (Take, Route, Frequency, Duration) Notes Start Date End Date Status Multivitamin - 1 tab(s) orally once a day Active Aspirin Adult Low Dose 81 MG 1 tab(s) or ally once a day Active amLODIPine Besylate 10 MG 1 tab(s) orall y once a day; Duration: 90 days Active hydroCHLOROthiazide 12.5 MG 1 tab(s) ora lly once a day; Duration: 90 days Active Benazepril HCl 20 MG 1 tab(s) orally onc e a day; Duration: 90 days Active Testosterone 12.5 MG/ACT (1%) 2 pumps to skin in the morning to shoulder, upper arms or abdomen Transdermal Once a day 05/12/2024 Active Benazepril HCl 20 MG Take 1 tablet by mo uth once daily; Duration: 90 Active amLODIPine Besylate 10 MG Take 1 tablet by mouth once daily; Duration: 90 Active Encounters Encounter Location Date Provider Diagnosis [facility] [address] [facility] [address] [place] [id number] 07/14/2024 Michael Lockhart Low testosterone in male E29.1 Assessments Encounter Date Diagnosis (ICD Code) Assessment Notes Treatment Notes Treatment Clinical Notes Section Notes 07/14/2024 Low testosterone in male (ICD-10 - E29.1) Plan Of Treatment Next Appt Details Provider Name:Michael Soto, 11/16/2025 09:45:00 AM, [address] [facility], [address], [place], [id number], Progress Notes * ELISE NIEVESDOB:1940 ( 85 yo M)Acc No.[id number]:07/14/2024 Patient: Michael ANDRESSAELISE BONILLA Provider: Michael Lockhart M.D. :1940 A ge:84 Y S ex:Male Date:07/14/2024 Address:[address] [place] [address] [id number] Subjective: * Chief Complaints: * 1 . Blood work. * Medical History: * Medications: T aking amLODIPine Besylate 10 MG Tablet 1 tab(s) orally once a day , Taking Benazepril HCl 20 MG Tablet 1 tab(s) orally once a day , Taking hydroCHLOROthiazide 12.5 MG Tablet 1 tab(s) orally once a day , Taking Multivitamin - Tablet 1 tab(s) orally once a day , Taking Aspirin Adult Low Dose 81 MG Tablet Delayed Release 1 tab(s) orally once a day , Taking amLODIPine Besylate 10 MG Tablet Take 1 tablet by mouth once daily , Taking Benazepril HCl 20 MG Tablet Take 1 tablet by mouth once daily , Taking Testosterone 12.5 MG/ACT (1%) Gel 2 pumps to skin in the morning to shoulder, upper arms or abdomen Transdermal Once a day , Medication List reviewed and reconciled with the patient Objective: * Vitals: Assessment: * Assessment: 1. L ow testosterone in male - E29.1 (Primary) Plan: * Treatment: Value Reference Range F ree Testosterone, Percent 0.76 L 1.60-2.90 - % * S ex Hormone Binding Globulin (SHBG) 124.0 H 19.3- 76.4 - nmol/L * T estosterone Total (Adult Male) 568.00 264.00-91 6.00 - ng/dL * T estosterone Bioavailable 105 L 131-682 - ng/dL * F ree Testosterone (calculation) 43 L 47-244 - pg/mL * Michael Lockhart 07/16/2024 4 :43:26 PM >See phone encounter * Images: Billing Information: * Visit Code: * Procedure Codes: * Electronic signature of Michael Lockhart MD on 06/17/2025 at 02:16 PM EDT Sign off status: Pending * Provider: Michael Lockhart M.D. Date: Generated for Richard ng/Chin/eTransmitting on: 0 06/17/2025 02:16 PM EDT
--- OUTSIDE RECORDS SUMMARY | 2024-08-20 10:00 | XMS_ITS ---
Author Organization [facility] Address [address] [place] [id number] Care Team Providers Care Buffer Nickel Name Role Phone Michael Lockhart Primary Care Provider Allergies No Known Allergies Results Component Value Reference Range Notes P-Testosterone, Free, Bioava ilable, and Total (Adult Male) Reviewed date:08/30/2024 07:45:41 PM Interpretation:Abnormal Performing Lab: Notes/Report: Test performed by [facility] [address] , [address], [place] [address] Parviz Birmingham MD, Rn Ostomy CLIA: [id number] Testosterone Total 1156.00 264.00-916.00 ng/dL Sex Hormone Binding Globulin (SHBG) 109.0 19.3- 76.4 nmol/L Free Testosterone, Percent 0.97 1.60-2.90 % Free Testosterone (calculation) 112 47-244 pg /mL Testosterone Bioavailable 275 131-682 ng/dL REASON FOR VISIT CHECK TESTOSTERONE LEVEL Medications Medication SIG (Take, Route, Frequency, Duration) Notes Start Date End Date Status Benazepril HCl 20 MG 1 tab(s) orally onc e a day; Duration: 90 days Active Testosterone 12.5 MG/ACT (1%) 2-4 pumps to skin in the morning to shoulder, upper arms or abdomen Transdermal Once a day 05/12/2024 Active hydroCHLOROthiazide 12.5 MG 1 tab(s) ora lly once a day; Duration: 90 days Active Aspirin Adult Low Dose 81 MG 1 tab(s) or ally once a day Active Multivitamin - 1 tab(s) orally once a day Active amLODIPine Besylate 10 MG 1 tab(s) orall y once a day; Duration: 90 days Active Vital Signs Blood pressure systolic 128 mm Hg 08/20/20 24 Blood pressure diastolic 82 mm Hg 024 Heart Rate 62 /min 08/20/2024 Height 72 in 08/20/2024 Weight 180.8 lbs 08/20/2024 BMI 24.52 kg/m2 08/20/2024 Encounters Encounter Location Date Provider Diagnosis [facility] [address] [facility] [address] [facility] [address] [place] [phone] 08/20/2024 Michael Lockhart Low testosterone in male E29.1 Assessments Encounter Date Diagnosis (ICD Code) Assessment Notes Treatment Notes Treatment Clinical Notes Section Notes 08/20/2024 Low testosterone in male (ICD-10 - E29.1) Recheck testosterone levels. If they remain low, will recommend urology consultation for possible injection therapy. If however his levels are normal and he is still having symptoms, may need to pursue other etiologies of his leg weakness by way of neurology consultation. Plan Of Treatment Treatment Notes Assessment Notes Low testosterone in male Recheck testost erone levels. If they remain low, will recommend urology consultation for possible injection therapy. If however his levels are normal and he is still having symptoms, may need to pursue other etiologies of his leg weakness by way of neurology consultation. Next Appt Details Follow Up: via phone to repo rt test results, Reason: Provider Name:Michael Soto, 11/16/2025 09:45:00 AM, [address] [facility] 36 [facility], [address], [place], [id number], Progress Notes * LEISE NIEVESDOB:1940 ( 85 yo M)Acc No.[id number]:08/20/2024 Progress Notes Patient: ELISE LAM Provider: Michael Lockhart M.D. :1940 A ge:84 Y S ex:Male Date:08/20/2024 Address:[address] [place], [place] [id number] Subjective: * Chief Complaints: * 1 . CHECK TESTOSTERONE LEVEL. * HPI: E ndocrinology: Elise comes in for follow-up on his low testosterone. He has been using 3 pumps of testosterone gel daily for the last 6 weeks and is due to have his levels rechecked. Unfortunately, he states he has not seen no improvement in symptoms since starting the testosterone. His chief complaint continues to be leg weakness and his states he is becoming less active because of the weakness. * ROS: D ERMATOLOGY: no R carlos. n o H mariela. G ASTROENTEROLOGY: no V omiting. U ROLOGY: no D ifficulty urinating. n o F requent urination.? 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 * Surgical History: l eft nephrectomy December 2005, stent for aortic arch and descending aortic dissection Oct 2005, Cervical Spinal Fusion Aug 2010, cataract surgery both eyes 10/2015, lithotripsy 2004, C-scope/normal 2007, C-scope/ multiple adenomatous polyps/ Dr. Leonard 06/2018, C-scope/ polyps/ [facility] 12/2018, C-scope/ Kavon/ polyp x 2 09/2021, C-scope/ Dr. Birch/ mild diverticulosis; no polyps 05/31/22. * Hospitalization/Major Diagno stic Procedure: [facility]-broken ribs, left side 09/12/17, [facility]-stomach pain 07/2019. * Family History: F ather: 72 yrs, stroke. M other: 89 yrs, old age. 1 son(s) , 2 daughter(s) . . * Social History: C URRENT TOBACCO USE: No . C affeine: yes, frequency: daily, coffee and soft drinks, 3-4 cups per day. Home smoke detector use: yes. 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 Alcohol: Yes, Type: 20-25 beers, wine, mixed drinks a week. * Medications: T aking amLODIPine Besylate 10 [...] tab(s) orally once a day , Taking Testosterone 12.5 MG/ACT (1%) Gel 2-4 pumps to skin in the morning to shoulder, upper arms or abdomen Transdermal Once a day , Medication List reviewed and reconciled with the patient * Allergies: N .K.D.A. Objective: * Vitals: W t:180.8, Temp:97.5, BP:128/82, HR:62, Nurse:PARDEEP, Ht: 72, BMI:24.52. Assessment: * Assessment: 1. L ow testosterone in male - E29.1 (Primary) Plan: * Treatment: Value Reference Range F ree Testosterone, Percent 0.97 L 1.60-2.90 - % * S ex Hormone Binding Globulin (SHBG) 109.0 H 19.3- 76.4 - nmol/L * T estosterone Total (Adult Male) 1156.00 H 264.00-91 6.00 - ng/dL * T estosterone Bioavailable 275 131-682 - ng/dL * F ree Testosterone (calculation) 112 47-244 - pg/mL * Michael Lockhart 08/30/2024 7:45:32 PM > See phone encounter Notes: Recheck testosterone levels. If they remain low, will recommend urology consultation for possible injection therapy. If however his levels are normal and he is still having symptoms, may need to pursue other etiologies of his leg weakness by way of neurology consultation.?? * Follow Up: v ia phone to report test results * Images: Billing Information: * Visit Code: 13220 Office Visit, Est Pt., Level 3. * Procedure Codes: * Electronic signature of Michael Lockhart MD on 06/17/2025 at 02:15 PM EDT Sign off status: Pending * Provider: Michael Lockhart M.D. Date: 10/20/2023 Generated for Richard castillo/Chin/eTrusssmdesmond on: 0 06/17/2025 02:15 PM EDT
--- OUTSIDE RECORDS SUMMARY | 2024-11-05 04:45 | XMS_ITS ---
Author Organization [facility] Address [address] [place] [id number] Care Team Providers Care Hand Edger Name Role Phone Michael Lockhart Primary Care Provider Allergies No Known Allergies Results Component Value Reference Range Notes P-Comprehensive Metabolic Pa jonathon (CMP) Reviewed date:11/09/2024 10:41:42 AM Interpretation:Normal Performing Lab: Notes/Report: Test performed by [facility] [address] [place] [address] , [address], [place] [address] Parviz Birmingham MD, Photographic Laboratory Technician CLIA: [id number] Sodium 137 135-145 mmol/L Potassium 4.6 3.5-5.3 mmol/L Chloride 102 97-108 mmol/L CO2 25 22-32 mmol/L Glucose 91 65-99 mg/dL BUN 17 8-23 mg/dL Creatinine 1.01 0.70-1.30 mg/dL Calcium 9.3 8.6-10.4 mg/dL eGFR by Creatinine 74 >59 mL/min/1.73m2 Protein 6.6 6.0-8.3 g/dL Albumin 4.1 3.5-5.3 g/dL Alkaline Phosphatase 81 40-129 IU/L ALT (SGPT) 10 <5-55 IU/L AST (SGOT) 17 <5-46 IU/L Bilirubin, Total 0.5 <0.2-1.2 mg/dL A/G Ratio 1.6 1.1-2.5 P-Lipid Panel Reviewed date:11/09/2024 10:41:42 AM Interpretation:Normal Performing Lab: Notes/Report: Test performed by [facility] [address], [place] [address] Parviz Birmingham MD, Photographic Laboratory Technician CHEKO: [id number] Cholesterol 184 <200 mg/dL Triglycerides 66 <150 mg/dL HDL Cholesterol 72 >39 mg/dL Cholesterol / HDL Ratio 2.56 0.00-4.99 Ratio Non-HDL Cholesterol 112 <130 mg/dL LDL Cholesterol (Calculation) 99 <130 mg/dL LDL Cholesterol Levels* Less than 100 mg/dL Optimal 100 to 129 mg/dL Near Optimal/ Above Optimal 130 to 159 mg/dL Borderline High 160 to 189 mg/dL High 190 mg/dL and above Very High * Categories as recommended by the 2004 ATPIII guidelines LDL/HDL Ratio 1.4 <3.3 Ratio LDL Cholesterol Patient History Test Date: 11/07/2023 LDL Results: 94 Units: mg/dL % Change: +4% Test Date: 05/07/2024 LDL Results: 84 Units: mg/dL % Change: -10% Test Date: 11/05/2024 LDL Results: 99 Units: mg/dL % Change: +17% P-PSA Reviewed date:11/09/2024 10:41:42 AM Interpretation:Normal Performing Lab: Notes/Report: Test performed by [facility] [address] [place] [address] , [address], [place] [address] Parviz Birmingham MD, Photographic Laboratory Technician CLIA: [id number] PSA 1.22 <4.00 ng/mL Please note this is an ultrasensitive PSA assay with a lower limit of detection of 0.014 ng/mL. This test is performed by the [employer] ECLIA methodology. Values obtained with different assay methods or kits cannot be directly compared. REASON FOR VISIT 6 month checkup Medications Medication SIG (Take, Route, Frequency, Duration) Notes Start Date End Date Status amLODIPine Besylate 10 MG 1 tab(s) orall y once a day Active Benazepril HCl 20 MG 1 tab(s) orally onc e a day Active hydroCHLOROthiazide 12.5 MG 1 tab(s) ora lly once a day Active Multivitamin - 1 tab(s) orally once a day Active Aspirin Adult Low Dose 81 MG 1 tab(s) or ally once a day Active Vital Signs Blood pressure systolic 138 mm Hg 11/05/19 25 Blood pressure diastolic 70 mm Hg 025 Heart Rate 64 /min 11/05/2024 Height 72 in 11/05/2024 Weight 181.2 lbs 11/05/2024 BMI 24.57 kg/m2 11/05/2024 Encounters Encounter Location Date Provider Diagnosis Chen [address] [facility] [address] [place] [id number] 11/05/2024 Michael Lockhart Prostate cancer screening Z12.5 ; Essential hypertension I10 and Muscle weakness M62.81 Assessments Encounter Date Diagnosis (ICD Code) Assessment Notes Treatment Notes Treatment Clinical Notes Section Notes 11/05/2024 Prostate cancer screening (ICD-10 - Z12.5) 11/05/2024 Essential hypertension (ICD-10 - I10) 11/05/2024 Muscle weakness (ICD-10 - M62.81) Continue follow-up with neurology Plan Of Treatment Medication Medication Name Sig Start Date Stop Date Notes amLODIPine Besylate 10 MG 1 tab(s) orally once a day Benazepril HCl 20 MG 1 tab(s) orally once a day hydroCHLOROthiazide 12.5 MG 1 tab(s) orally once a day Treatment Notes Assessment Notes Muscle weakness Continue follow-up w [facility] neurology Next Appt Details Follow Up: 6 Months, Reason: Provider Name:Michael Soto, 11/16/2025 09:45:00 AM, [address], [address], [place], [place], [id number], Progress Notes * ELISE NIEVESDOB:1940 ( 85 yo M)Acc No.[id number]:11/05/2024 Progress Notes Patient: ELISE LAM Provider: Michael Lockhart M.D. :1940 A ge:84 Y S ex:Male Date:11/05/2024 Address:[address] [place], [place] [id number] Subjective: * Chief Complaints: * 1 . 6 month checkup. * HPI: H PI: 84 year old male presents with c/o Patient is here today for?Pt is here for a 6 month check up. Pt sts he is doing well and has no concerns or complaints at this time. Pt is fasting. N eurology: He is now following with neurology at regarding his leg weakness. Workup thus far has been unremarkable with change in his symptoms. He is to have an nerve conduction study but is not scheduled until February. He is not exercising regularly. * ROS: D ERMATOLOGY: no R carlos. n o H mariela. G ASTROENTEROLOGY: no V omiting. U ROLOGY: no D ifficulty urinating. n o F requent urination.? 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 Alcohol: Yes, Type: 20-25 beers, wine, [...] 1 tab(s) orally once a day , Medication List reviewed and reconciled with the patient * Allergies: N .K.D.A. Objective: * Vitals: W t:181.2, Temp:97.1, BP:138/70, HR:64, Nurse:KIKI, Ht: 72, BMI:24.57. * Examination: C ardiology: General Appearance: p leasant, NAD. H EENT: s clera and conjunctiva clear, PERRLA, TM's normal, translucent. C arotid upstroke: n ormal, no bruits. H eart sounds: R RR, normal S1, S2. M urmur, click , gallop: n one. L ungs: clear, no rales or wheezes. A bdomen: p ositive BS, soft, nontender. E xtremities:?trace ankle edema. Assessment: * Assessment: 1. E ssential hypertension - I10 (Primary) 2 . P rostate cancer screening - Z12.5 3 . M uscle weakness - M62.81 Plan: * Treatment: Value Reference Range A /G Ratio 1.6 1.1-2.5 - * A lbumin 4.1 3.5-5.3 - g/dL * A lkaline Phosphatase 81 40-129 - IU/L * A LT (SGPT) 10 <5-55 - IU/L * A ST (SGOT) 17 <5-46 - IU/L * B ilirubin, Total 0.5 <0.2-1.2 - mg/dL * B UN 17 8-23 - mg/dL * C alcium 9.3 8.6-10.4 - mg/dL * C hloride 102 97-108 - mmol/L * C O2 25 22-32 - mmol/L * C reatinine 1.01 0.70-1.30 - mg/dL * G lucose 91 65-99 - mg/dL * P otassium 4.6 3.5-5.3 - mmol/L * S odium 137 135-145 - mmol/L * P rotein 6.6 6.0-8.3 - g/dL * e GFR by Creatinine 74 >59 - mL/min/1.73m2 * Michael Lokchart 11/09/2024 1 0:41:32 AM >See phone encounter ?LAB: P-Lipid Panel (Collection Date & Time - 11/05/2024 09:03 AM)?Normal* Value Reference Range C holesterol / HDL Ratio 2.56 0.00-4.99 - Ratio * C holesterol 184 <200 - mg/dL * H DL Cholesterol 72 >39 - mg/dL * L DL Cholesterol (Calculation) 99 <130 - mg/d L * L DL/HDL Ratio 1.4 <3.3 - Ratio * N on-HDL Cholesterol 112 <130 - mg/dL * T riglycerides 66 <150 - mg/dL * Michael Lockhart 11/09/2024 1 0:41:32 AM >See phone encounter 2.?Prostate cancer screening?LAB: P-PSA (Collection Date & Time - 11/05/2024 09:03 AM)?Normal* Value Reference Range P SA 1.22 <4.00 - ng/mL * Michael Lockhart 11/09/2024 1 0:41:32 AM >See phone encounter 3.?Muscle weakness? Notes: Continue follow-up with neurology?? * Procedure Codes: G 2211 Complex e/m visit add on * Follow Up: 6 Months * Images: Billing Information: * Visit Code: 33232 Office Visit, Est Pt., Level 3. * Procedure Codes: G2211 Complex e/m visit add on. * Electronic signature of Michael Lockhart MD on 06/17/2025 at 02:16 PM EDT Sign off status: Pending * Provider: Michael Lockhart M.D. Date: 0 11/05/2024 Generated for Richard castillo/Fanicole/eTransmitting on: 0 06/17/2025 02:16 PM EDT History and Physical Notes * HPI (History of Present Illness) Category Sub-Category Detail Notes Category Not es HPI Patient is here today for Pt is here for a 6 month check up. Pt sts he is doing well and has no concerns or complaints at this time. Pt is fasting Examination Category Sub-Category Detail Notes Category Not es Cardiology Lungs: clear, no rales or wheezes HEENT: sclera and conjuncti va clear, PERRLA, TM's normal, translucent Heart sounds: RRR, normal S1, S2 Abdomen: positive BS, soft, n ontender Carotid upstroke: normal, no bruits Extremities: trace ankle edema Murmur, click , gallop: none General Appearance: pleasant, NAD
--- OUTSIDE RECORDS SUMMARY | 2025-05-13 06:10 | XMS_ITS ---
Author Organization [facility] Address [address] [place] [id number] Care Team Providers Care Head Boys Tennis Coach Name Role Phone Michael Lockhart Primary Care Provider Allergies No Known Allergies Results Component Value Reference Range Notes P-Comprehensive Metabolic Pa jonathon (CMP) Reviewed date:05/16/2025 04:13:06 PM Interpretation:Normal Performing Lab: Notes/Report: Test performed by [facility] [address] [place] [address] , [address], [place] [address] Parviz Birmingham MD, Dinkey Engine Mechanic CLIA: [id number] Sodium 136 135-145 mmol/L Potassium 4.9 3.5-5.3 mmol/L Chloride 99 97-108 mmol/L CO2 25 20-32 mmol/L Glucose 98 65-99 mg/dL BUN 11 8-23 mg/dL Creatinine 1.03 0.70-1.30 mg/dL Calcium 9.8 8.6-10.4 mg/dL eGFR by Creatinine 72 >59 mL/min/1.73m2 Protein 6.7 6.0-8.3 g/dL Albumin 4.0 3.5-5.3 g/dL Alkaline Phosphatase 72 40-129 IU/L ALT (SGPT) 10 <5-55 IU/L AST (SGOT) 13 <5-46 IU/L Bilirubin, Total 0.5 <0.2-1.2 mg/dL A/G Ratio 1.5 1.1-2.5 P-Folate Reviewed date:05/16/2025 04:13:06 PM Interpretation:Normal Performing Lab: Notes/Report: Test performed by [facility] [address] [place] [address] [address], [place] [address] Parviz Birmingham MD, Dinkey Engine Mechanic CLIA: [id number] Folate >20 >4.59 ng/mL P-Lipid Panel Reviewed date:05/16/2025 04:13:06 PM Interpretation:LDL 96 Performing Lab: Notes/Report: Test performed by [facility] [address] [place] [address] Emma [address], [place] [address] Parviz Birmingham MD, Dinkey Engine Mechanic CLIA: [id number] Cholesterol 185 <200 mg/dL Triglycerides 57 <150 mg/dL HDL Cholesterol 78 >39 mg/dL Cholesterol / HDL Ratio 2.37 0.00-4.99 Ratio Non-HDL Cholesterol 107 <130 mg/dL LDL Cholesterol (Calculation) 96 <130 mg/dL LDL Cholesterol Levels* Less than 100 mg/dL Optimal 100 to 129 mg/dL Near Optimal/ Above Optimal 130 to 159 mg/dL Borderline High 160 to 189 mg/dL High 190 mg/dL and above Very High * Categories as recommended by the 2004 ATPIII guidelines LDL/HDL Ratio 1.2 <3.3 Ratio LDL Cholesterol Patient History Test Date: 05/07/2024 LDL Results: 84 Units: mg/dL % Change: -10% Test Date: 11/05/2024 LDL Results: 99 Units: mg/dL % Change: +17% Test Date: 05/13/2025 LDL Results: 96 Units: mg/dL % Change: -3% REASON FOR VISIT 6 month and Annual Wellness Visit Medications Medication SIG (Take, Route, Frequency, Duration) Notes Start Date End Date Status amLODIPine Besylate 10 MG 1 tab(s) orall y once a day Active hydroCHLOROthiazide 12.5 MG 1 tab(s) ora lly once a day; Duration: 90 days Active Benazepril HCl 20 MG 1 tab(s) orally onc e a day; Duration: 90 days Active Multivitamin - 1 tab(s) orally once a day Active Aspirin Adult Low Dose 81 MG 1 tab(s) or ally once a day Active Benazepril HCl 20 MG 1 tab(s) orally onc e a day Active hydroCHLOROthiazide 12.5 MG 1 tab(s) ora lly once a day Active amLODIPine Besylate 10 MG 1 tab(s) orall y once a day; Duration: 90 days Active Folic Acid 400 MCG 1 tablet Orally Once a day Active Immunizations Vaccine Route Administration Date Status Comme nts PNEUMOVAX 23 VACCINE IM Intramuscular 05/13/2025 Administe red Vital Signs Blood pressure systolic 120 mm Hg 05/13/20 25 Blood pressure diastolic 72 mm Hg 025 Heart Rate 73 /min 05/13/2025 Height 72 in 05/13/2025 Weight 175.0 lbs 05/13/2025 BMI 23.73 kg/m2 05/13/2025 Encounters Encounter Location Date Provider Diagnosis [facility] [address] [place] [id number] 05/13/2025 Michael Lockhart Adult general medica l examination Z00.00 ; Prostate cancer screening Z12.5 ; Essential hypertension I10 ; Muscle weakness M62.81 ; Cognitive changes R41.89 ; Degeneration of intervertebral disc of lumbar region, unspecified whether pain present M51.369 ; BMI 23.0-23.9, adult Z68.23 ; Hx of renal cell cancer Z85.528 and Status post nephrectomy Z90.5 Assessments Encounter Date Diagnosis (ICD Code) Assessment Notes Treatment Notes Treatment Clinical Notes Section Notes 05/13/2025 Adult general medical examination (ICD-10 - Z00.00) Patient instructed to return to office Annually for Annual Wellness Visits to include annual screenings of Pain assessment, Functional Ability assessment, Cognitive Ability assessment, Fall Risk assessment, Depression screening and Bladder control screening. 05/13/2025 Prostate cancer screening (ICD-10 - Z12.5) 05/13/2025 Essential hypertension (ICD-10 - I10) 05/13/2025 Muscle weakness (ICD-10 - M62.81) Continue follow-up with neurology 05/13/2025 Cognitive changes (ICD-10 - R41.89) 05/13/2025 Degeneration of intervertebral disc of lumbar region, unspecified whether pain present (ICD-10 - M51.369) 05/13/2025 BMI 23.0-23.9, adult (ICD-10 - Z68.23) 05/13/2025 Hx of renal cell cancer (ICD-10 - Z85.528) 05/13/2025 Status post nephrectomy (ICD-10 - Z90.5) left Plan Of Treatment Medication Medication Name Sig Start Date Stop Date Notes amLODIPine Besylate 10 MG 1 tab(s) orally once a day Benazepril HCl 20 MG 1 tab(s) orally once a day hydroCHLOROthiazide 12.5 MG 1 tab(s) orally once a day Treatment Notes Assessment Notes Adult general medical examination Patien t instructed to return to office Annually for Annual Wellness Visits to include annual screenings of Pain assessment, Functional Ability assessment, Cognitive Ability assessment, Fall Risk assessment, Depression screening and Bladder control screening. Muscle weakness Continue follow-up w [facility] neurology Next Appt Details Follow Up: 6 Months, Reason: Provider Name:Michael Soto, 11/16/2025 09:45:00 AM, [address], [place], [id number], Progress Notes * ELISE NIEVESDOB:1940 ( 85 yo M)Acc No.[id number]:05/13/2025 Annual Wellness Visit Patient: ELISE LAM Provider: Michael Lockhart M.D. :1940 A ge:85 Y S ex:Male Date:05/13/2025 Address:[address] [place] [address] [facility]yn[id number] Subjective: * Chief Complaints: * 1 . 6 month and Annual Wellness Visit. * HPI: H PI: Patient is here today for a scheduled 6 month check up and?a Medicare Annual Wellness Visit. Pt sts he is doing well and has no concerns at this time. Pt sts he is fasting. N eurology: He continues to follow with neurology at with his ongoing complaints of leg weakness which are unchanged. Since his last visit, he underwent EMG testing which apparently was abnormal showing neuropathy . He then underwent an MRI of the lumbar spine showing multilevel degenerative changes. He was ordered to have additional physical therapy which has made no change in his symptoms. He has now been referred for neurosurgical consultation at . He had also made mention to the neurologist about some memory issues and she ordered a 30-day supply of folic acid even though his folate levels were reported as normal. C ardiology: Denies : Chest Pain. D enies : Short of Breath. D enies : Palpitations. D enies : Leg Edema. G astroenterology: He is scheduled for colonoscopy per Dr. Leonard because of some recent changes in his bowel habits and a significant past history of colon polyps. * ROS: O PTHALMOLOGY: Negative for d enies vision issues. 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 * Surgical History: l eft nephrectomy December 2005, stent for aortic arch and descending aortic dissection Oct 2005, Cervical Spinal Fusion Aug 2010, cataract surgery both eyes 10/2015, lithotripsy 2004, C-scope/normal 2007, C-scope/ multiple adenomatous polyps/ Dr. Leonard 06/2018, C-scope/ polyps/ [facility] 12/2018, C-scope/ [place]/ polyp x 2 09/2021, [...] smoke detector use: yes. 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 Alcohol: Yes, Type: 20-25 beers, wine, mixed drinks a week. * Medications: T aking Folic Acid 400 MCG Tablet 1 tablet Orally Once a day , Taking Multivitamin - Tablet 1 tab(s) orally once a day , Taking Aspirin Adult Low Dose 81 MG Tablet Delayed Release 1 tab(s) orally once a day , Taking hydroCHLOROthiazide 12.5 MG Tablet 1 tab(s) orally once a day , Taking Benazepril HCl 20 MG Tablet 1 tab(s) orally once a day , Taking amLODIPine Besylate 10 MG Tablet 1 tab(s) orally once a day , Medication List reviewed and reconciled with the patient * Allergies: N .K.D.A. Objective: * Vitals: W t: 175.0, Temp: 97.4, BP: 120/72, HR: 73, O2 Sat: 98% on RA, Nurse: frank, Ht: 72, BMI:23.73. * Examination: C ardiology: General Appearance: p leasant, NAD. H EENT: s clera and conjunctiva clear, PERRLA, TM's normal, translucent. C arotid upstroke: n ormal, no bruits. H eart sounds: R RR, normal S1, S2. M urmur, click , gallop: n one. L ungs: clear, no rales or wheezes. A bdomen: p ositive BS, soft, nontender. E xtremities:?trace ankle edema. * Physical Examination: G ENERAL: Pain Assessment: P ain level: 6, on a scale of 0-10 (with 10 being extreme pain). F unctional Status Assessment: P atient response to question of how often physical health interferes with daily activities: Occasionally. Able to perform ADLs-including meal preparation, grocery shopping, housework, laundry, taking medications or handling finances. Cognitive Status: alert and oriented. Ambulation Status: Fully ambulatory. F all Risk Assessment: I ndependant in ambulation, adequate lighting in home. Patient has NOT fallen or had trouble walking within the past 12 months. D epression Screening: D enies depressed mood or anxiety. Describes emotional health as: calm. B ladder Control Screening: D enies problems. Assessment: * Assessment: 1. A dult general medical examination - Z00.00 (Primary) 2 . P rostate cancer screening - Z12.5 3 . E ssential hypertension - I10 4 . M uscle weakness - M62.81 5 . C ognitive changes - R41.89 6 . Degeneration of intervertebral disc of lumbar region, unspecified whether pain present - M51.369? 7. B DE 23.0-23.9, adult - Z68.23 8 . H x of renal cell cancer - Z85.528 9 . S tatus post nephrectomy - Z90.5 N otes :left Plan: * Treatment: 2. E ssential hypertension Continue amLODIPine Besylate Tablet, 10 MG, 1 tab(s), orally, once a day; C ontinue Benazepril HCl Tablet, 20 MG, 1 tab(s), orally, once a day; C ontinue hydroCHLOROthiazide Tablet, 12.5 MG, 1 tab(s), orally, once a day. L AB: P-Comprehensive Metabolic Panel (CMP) (Collection Date & Time - 05/13/2025 09:20 AM) N ormal Value Reference Range A /G Ratio 1.5 1.1-2.5 - * A lbumin 4.0 3.5-5.3 - g/dL * A lkaline Phosphatase 72 40-129 - IU/L * A LT (SGPT) 10 <5-55 - IU/L * A ST (SGOT) 13 <5-46 - IU/L * B ilirubin, Total 0.5 <0.2-1.2 - mg/dL * B UN 11 8-23 - mg/dL * C alcium 9.8 8.6-10.4 - mg/dL * C hloride 99 97-108 - mmol/L * C O2 25 20-32 - mmol/L * C reatinine 1.03 0.70-1.30 - mg/dL * G lucose 98 65-99 - mg/dL * P otassium 4.9 3.5-5.3 - mmol/L * S odium 136 135-145 - mmol/L * P rotein 6.7 6.0-8.3 - g/dL * e GFR by Creatinine 72 >59 - mL/min/1.73m2 * Michael Lockhart 05/16/2025 0 4:12:53 PM EDT > See phone encounter ?LAB: P-Lipid Panel (Collection Date & Time - 05/13/2025 09:20 AM)?LDL 96* Value Reference Range C holesterol / HDL Ratio 2.37 0.00-4.99 - Ratio * C holesterol 185 <200 - mg/dL * H DL Cholesterol 78 >39 - mg/dL * L DL Cholesterol (Calculation) 96 <130 - mg/d L * L DL/HDL Ratio 1.2 <3.3 - Ratio * N on-HDL Cholesterol 107 <130 - mg/dL * T riglycerides 57 <150 - mg/dL * Michael Lockhart 05/16/2025 0 4:12:53 PM EDT > See phone encounter 3.?Muscle weakness? Notes: Continue follow-up with neurology??4.?Cognitive changes?LAB: P-Folate (Collection Date & Time - 05/13/2025 09:20 AM)?Normal* Value Reference Range F olate >20 >4.59 - ng/mL * Michael Lockhart 05/16/2025 0 4:12:53 PM EDT > See phone encounter * Immunizations: PNEUMOVAX 23 VACCINE (Route: Intramuscular) given by FRANK Dodd on Right Deltoid (Adult general medical examination) * Procedure Codes: G 0439 ANNUAL WELLNESS VST; PPS SUBSQT VST, G2211 Complex e/m visit add on, 1090F PRES/ABSN URINE INCON ASSESS, 3288F FALL RISK ASSESSMENT DOCD, 1170F FXNL STATUS ASSESSED, 1159F MED LIST DOCD IN RCRD, 1003F LEVEL OF ACTIVITY ASSESS, 3017F COLORECTAL CA SCREEN DOC REV, 1036F TOBACCO NON-USER, G8420 BMI<30 AND >=22 CALC & DOCU, 4040F PNEUMOC IMM ORDER/ADMIN, G8950 PREHTN/HTN BP DOC INDCD F/U DOC, G8752 MOST RECENT SYSTOLIC BP < 140MM HG, G8754 MOST RECENT DIASTOLIC BP < 90MM HG, 1125F AMNT PAIN NOTED PAIN PRSNT, G8510 NEG SCR Depression PT NOT ELIG F/U/PLN DOC * Preventive Medicine: Counseling: E motional health: P atient encouraged to try connecting with family or friends to boost mood. B ladder control: M ethods of controlling or managing leakage of urine discussed. E xercise: P atient advised to start, increase or maintain level of exercise/physical activity. I njury prevention: F all prevention discussed. Discussed need for cane/walker. Potential trip hazards discussed. Immunizations: P neumococcal r ecommended. I nfluenza r ecommended seasonally. Screening / Special Tests: C olonoscopy R ecent history: 05/31/2022, diverticulosis otherwise normal, no further f/u recommended. P SA , normal. * Follow Up: 6 Months * Images: Billing Information: * Visit Code: 35786 Office Visit, Est Pt., Level 3. Modifiers: 25 * Procedure Codes: G0439 ANNUAL WELLNESS VST; PPS SUBSQT VST. G2211 Complex e/m visit add on. 1090F PRES/ABSN URINE INCON ASSESS. 3288F FALL RISK ASSESSMENT DOCD. 1170F FXNL STATUS ASSESSED. 1159F MED LIST DOCD IN RCRD. 1003F LEVEL OF ACTIVITY ASSESS. 3017F COLORECTAL CA SCREEN DOC REV. 1036F TOBACCO NON-USER. G8420 BMI<30 AND >=22 CALC & DOCU. 4040F PNEUMOC IMM ORDER/ADMIN. G8950 PREHTN/HTN BP DOC INDCD F/U DOC. G8752 MOST RECENT SYSTOLIC BP < 140MM HG. G8754 MOST RECENT DIASTOLIC BP < 90MM HG. 1125F AMNT PAIN NOTED PAIN PRSNT. G8510 NEG SCR Depression PT NOT ELIG F/U/PLN DOC. * Electronic signature of Michael Lockhart MD on 06/17/2025 at 02:16 PM EDT Sign off status: Pending * Provider: Michael Lockhart M.D. Date: 05/13/2025 Generated for Richard castillo/Chin/Narayan on: 0 06/17/2025 02:16 PM EDT History and Physical Notes * HPI (History of Present Illness) Category Sub-Category Detail Notes Category Not es Neurology He had also mad e mention to the neurologist about some memory issues and she ordered a 30-day supply of folic acid even though his folate levels were reported as normal. Cardiology Short of Breath Chest Pain Palpitations Leg Edema Gastroenterology He is sched uled for colonoscopy per Dr. Leonard because of some recent changes in his bowel habits and a significant past history of colon polyps. HPI Patient is here toda y for a scheduled 6 month check up and a Medic are Annual Wellness Visit. Pt sts he is doing well and has no concerns at this time. Pt sts he is fasting Physical Examination Category Sub-Category Detail Notes Section Note s GENERAL Pain Assessment: Pain level: 6, on a scale of 0-10 (with 10 being extreme pain) Functional Status Assessment: Patient re sponse to question of how often physical health interferes with daily activities: Occasionally. Able to perform ADLs-including meal preparation, grocery shopping, housework, laundry, taking medications or handling finances.Cognitive Status: alert and oriented.Ambulation Status: Fully ambulatory Fall Risk Assessment: Independant in amb ulation, adequate lighting in home. Patient has NOT fallen or had trouble walking within the past 12 months Depression Screening: Denies depressed m ood or anxiety. Describes emotional health as: calm Bladder Control Screening: Denies proble ms Examination Category Sub-Category Detail Notes Category Not es Cardiology Lungs: clear, no rales or wheezes HEENT: sclera and conjuncti va clear, PERRLA, TM's normal, translucent Heart sounds: RRR, normal S1, S2 Abdomen: positive BS, soft, n ontender Carotid upstroke: normal, no bruits Extremities: trace ankle edema Murmur, click , gallop: none General Appearance: pleasant, NAD
--- OUTSIDE RECORDS SUMMARY | 2025-06-02 10:00 | XMS_ITS | Encounter Summary ---
Author Organization Healthcare Address [address] [place] [address] Care Team Providers Care Framing Specialist Name Role Phone Ortiz Lockhart MD Primary Care Provider +1- [phone] Reason for Referral * Imaging (Routine) - Authorized Specialty Diagnoses / Procedures Referred By Phoebe corley Referred To Contact Diagnoses Unstable balance Muscle weakness (generalized) Procedures MR Cervical Spine wo IV Contrast 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 APRN [address] [address] Phone: tel: fax: Referral ID Status Reason Start Date Expiration Date V isits Requested Visits Authorized [id number] Authorized 06/02/2025 12/02/2026 1 1 Reason for Visit * Reason Comments Sleeping Problem * Consultation (Routine) - Closed Specialty Diagnoses / Procedures Referred By Phoebe t Referred To Contact Neurosurgery Diagnoses Lumbosacral radiculopathy Christian Beard MD [address] [facility] [address] [place] [address] Phone: tel: fax: [place] [facility] [address], [address] [place] [address] Phone: tel: fax: Referral ID Status Reason Start Date Expiration Date V isits Requested Visits Authorized [id number] Closed Specialty Services Required 04/26/2025 10/26/2026 1 1 Encounter Details Date Type Department Care Team (Late st Contact Info) Description 06/02/2025 10:00 AM EDT Consult [place] [facility] [address] [place] [address] 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, MACHINE SET UP [address] [place] [address] History of fusion of cervical [...] fusion that was completed in 2009 in [place]. He is unsure what his symptoms were prior to surgery. The patient did complete physical therapy for 3-4 months from November to March 02, 2025 without appreciable benefit in his back. He has not done any epidural steroid injections. Past Medical History He has a past medical history of Cancer ([facility]) (October 2005), Dementia ([facility]), Difficulty walking, Hypertension, Memory loss, Tremor, and [...] bilateral lateral recess narrowing, as well as oykv-wu-oqthbfrk central canal stenosis. at L3-4 facet hypertrophy [...] errors Snehal Calhoun APRN Division of Neurosurgery [facility] [1] Family History Problem Relation Name Age [...] by mouth 1 (one) time each day. zmjnwqjmuafk-igclcgtj-zfcct acid-coenzyme q10 (Preservision AREDS 2) capsule Take [...] Fisher MD on 06/02/2025 11:41 AM Sharon Sakina Calhoun MACHINE SET UP IMG XR PROCEDURES Final Result documented in [...] documented as of this encounter Care Teams Framing Specialist Relationship Specialty Start Date End Date Ortiz Lockhart MD [address] [place] [address] PCP - General 09/02/24 documented as of this encounter
--- OUTSIDE RECORDS SUMMARY | 2025-06-02 10:37 | XMS_ITS | Encounter Summary ---
Author Organization Healthcare Address [address] [place] [address] Care Team Providers Care Co Founder & Ceo Name Role Phone Ortiz Lockhart MD Primary Care Provider +1- [phone] Encounter Details Date Type Department Care Team (Latest Contact Info) Description 06/02/2025 10:37 AM EDT - 06/02/2025 11:59 PM EDT Hospital Encounter [place] [facility] [address] [place] [address] Unstable balance; Muscle weakness (generalized) Discharge Disposition: [...] on file documented as of this encounter Procedures Procedure [...] MD on 06/02/2025 11:41 AM 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 EXECUTIVE DIRECTOR [employer] IMG XR PROCEDURES Final Result documented in [...] documented as of this encounter Care Teams Co Founder & Ceo Relationship Specialty Start Date End Date Ortiz Lockhart MD [address] [place] [address] PCP - General 09/02/24 documented as of this encounter
--- NOTE | 2025-06-17 14:16 | MR_ITS ---
FINAL REPORT CLINICAL HISTORY: UNSTABLE BALANCE/MUSCLE WEAKNESS HX OF CERVICAL SURGERY IN 2010 WEAKNESS IN RIGHT ARM COMPARISON: None FINDINGS: Multi planar MR imaging was obtained of the cervical spine. There is a long segment anterior and interbody fusion of the cervical spine at C3-4, C4-5, C5-6, and C6-7. There is no malalignment. The cervical cord demonstrates normal signal and configuration. C2-C3: There is no evidence of significant disc bulge or protrusion. There is no significant facet hypertrophy. C3-C4: Mild posterior osteophyte formation. Moderate right and mild left neuroforaminal narrowing. C4-C5: There is no evidence of significant disc bulge or protrusion. There is no significant facet hypertrophy. C5-C6: Significant endplate hypertrophy. High-grade bilateral neuroforaminal narrowing. C6-C7: There is no evidence of significant disc bulge or protrusion. There is no significant facet hypertrophy. C7-T1: Significant endplate hypertrophy. Moderate right and high-grade left neuroforaminal narrowing. IMPRESSION: Bilateral neuroforaminal compromise at C5-6 and C7-T1. Long segment anterior interbody fusion C3-4 through C6-7. Reviewed, Interpreted and Dictated by Aleksandr Rothman MD Transcribed by Yuki Gardiner Authenticated and . [facility]
--- OUTSIDE RECORDS SUMMARY | 2025-06-17 14:16 | XMS_ITS | Encounter Summary ---
Author Organization [facility] Address [address] [place] [address] Care Team Providers Care Surgery Assistant Name Role Phone Ortiz Lockhart MD Primary Care Provider [phone]- [phone] Encounter Details Date Type Department Care Team (Latest Contact Info) Description 06/02/2025 Travel Social History Tobacco Use Types Packs/Day [...] documented as of this encounter Care Teams Surgery Assistant Relationship Specialty Start Date End Date Ortiz Lockhart MD [address] [place] [address] PCP - General 09/02/24 documented as of this encounter
--- OUTSIDE RECORDS SUMMARY | 2025-06-17 14:16 | XMS_ITS | Clinical Summary ---
Author Organization [facility] Address [address] [place] [address] Care Team Providers Care Outbound Sales Executive Name Role Phone Ortiz Lockhart MD Primary Care Provider [phone]- [phone] Allergies No known active allergies Medications amLODIPine [...] Encounters Date Type Department Care Team Description 06/02/2025 10:37 AM EDT - 06/02/2025 11:59 PM EDT Hospital Encounter [facility] [address] [place] [address] Unstable balance; Muscle weakness (generalized) Discharge Disposition: Home or Self Care 06/02/2025 10:00 AM EDT Consult [facility] [address] [place] [address] 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, 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 History of fusion of cervical spine (Primary Dx); Unstable balance; Muscle weakness (generalized) 06/02/2025 Travel 03/24/2025 Orders Only External Location [address] [place] [address] Provider, External 03/17/2025 Telephone [facility] [address] [place] [address] Christian Beard MD from Last 3 Months Immunizations Immunization Administration [...] Pulse 71 06/02/2025 10:04 AM EDT Temperature 36.4 C (97.6 F) 10/29/2024 10:27 AM EST Respiratory Rate - - Oxygen Saturation 100% 06/02/2025 10:04 AM EDT Inhaled Oxygen Concentration - - Weight 79.4 kg (175 lb) 06/02/2025 10:04 AM EDT Height 185.4 cm (6' 1 ) 06/02/2025 10:04 AM EDT Body Mass Index 23.09 06/02/2025 10:04 AM EDT Plan of Treatment Health Maintenance Due Date Last Done Comments [facility]-Medicare Annual Wellness (AWV) 1941 [facility]-/Child/Adol SDOH Screenings 1941 [facility]- SDOH Screenings 1959 [facility]-Adult SDOH Screenings 1959 [facility]-DTaP,Tdap,and Td Vaccines (1 - Tdap) 1960 [facility]-Zoster Vaccines (1 of 2) 1991 [facility]-RSV Vaccine: 60+ Years or (1 - 1-dose 75+ series) 2016 [id number] Vaccine ( - 2023- season) 2024 06/28/2021, 12/14/2020, 11/16/2020 [facility]-Influenza Vaccine (#1) 06/14/202508/04, 07/27/2022, 08/17/2021, Additional history exists [facility]-Depression Screening 03/15/2026 03/15/2025, 10/14 [facility]-Pneumococcal Vaccine: 50+ Years Completed 05/13/2025, 10/30/2022, 04/05/2020 HPV Vaccines Aged Out No longer eligi [...] on patient's age to complete this topic Procedures Procedure Name Priority Date/Time Associated Diagnosis Comments XR CERVICAL SPINE COMPLETE 4 TO 5 VIEWS Routine 06/02/2025 11:08 AM EDT Unstable balance Muscle weakness (generalized) MR NEURO OUTSIDE IMAGES 03/24/2025 3:02 PM EDT from Last 3 Months Results * XR Cervical Spine Complete 4 [...] MD on 06/02/2025 11:41 AM 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 IMG XR PROCEDURES Final Result * MR NEURO OUTSIDE IMAGES (03/24/2025 3:02 PM EDT) Anatomical Region Laterality Modality Magnetic Resonan ce 03/24/2025 3:02 PM EDT us External Provider IMG MRI PROCEDURES Final Resul t from Last 3 Months Insurance [place] [id number] MEDICARE [facility] Care Teams Outbound Sales Executive Relationship Specialty Start Date End Date Ortiz Lockhart MD [address] [place] [address] PCP - General 09/02/24
--- OUTSIDE RECORDS SUMMARY | 2025-06-17 14:16 | XMS_ITS | Patient Health Record ---
Author Organization [facility] Address [address] [place] [id number] Care Team Providers Care Hydrological Technical Officer Name Role Phone Michael Lockhart Primary Care Provider [phone] Allergies No Known Allergies Results Component Value Reference Range Notes P-Testosterone, Free, Bioava ilable, and Total (Adult Male) Reviewed date:08/30/2024 07:45:41 PM Interpretation:Abnormal Performing Lab: Notes/Report: Test performed by [facility] , [address], [place] [address] Parviz Birmingham MD, [place] CLIA: [id number] Testosterone Total 1156.00 264.00-916.00 ng/dL Sex Hormone Binding Globulin (SHBG) 109.0 19.3-76.4 nmol/L Free Testosterone, Percent 0.97 1.60-2.90 % Free Testosterone (calculation) 112 47-244 pg/mL Testosterone Bioavailable 275 131-682 ng/dL P-Testosterone, Free, Bioava ilable, and Total (Adult Male) Reviewed date:07/14/2024 11:15:46 AM Interpretation: Performing Lab: Notes/Report: CBC Venipuncture (in house) Reviewed date:07/14/2024 11:15:32 AM Interpretation: Performing Lab: Notes/Report: P-Testosterone Total (Adult Male) Reviewed date:07/16/2024 08:51:54 AM Interpretation:Normal Performing Lab: Notes/Report: Test performed by [facility] [place] , [address], [place] [address] Parviz Birmingham MD, [place] CLIA: [id number] Testosterone Total 497.00 264.00-916.00 ng/dL CBC Fingerstick [...] - 38 plat 228 100 - 400 P-PSA Reviewed date:11/09/2024 10:41:42 AM Interpretation:Normal Performing Lab: Notes/Report: Test performed by [facility] [address] [place] [address] , [facility] [address], [place] [address] Parviz Birmingham MD, [place] CLIA: [id number] PSA 1.22 <4.00 ng/mL Please note this is an ultrasensitive PSA assay with a lower limit of detection of 0.014 ng/mL. This test is performed by the Tarun ECLIA methodology. Values obtained with different assay methods or kits cannot be directly compared. P-Lipid Panel Reviewed date:11/09/2024 10:41:42 AM Interpretation:Normal Performing Lab: Notes/Report: Test performed by [facility] [address] [place] [address] , [address], [place] [address] Parviz Birmingham MD, [place] CLIA: [id number] Cholesterol 184 <200 mg/dL Triglycerides 66 <150 [...] Interpretation:Normal Performing Lab: Notes/Report: Test performed by [facility] [address] [facility] , [address], [place] [address] Parviz Birmingham MD, [place] CLIA: [id number] Sodium 137 135-145 mmol/L Potassium 4.6 3.5-5.3 [...] 0.5 <0.2-1.2 mg/dL A/G Ratio 1.6 1.1-2.5 P-Testosterone, Free, Bioava ilable, and Total (Adult Male) Reviewed date:07/15/2024 11:44:31 AM Interpretation: Performing Lab: Notes/Report: P-Testosterone, Free, Bioava ilable, and Total (Adult Male) Reviewed date:07/16/2024 04:43:39 PM Interpretation:shbg 124, free test 43 Performing Lab: Notes/Report: Test performed by [facility] [address] [place] [address] , [address], [place] [address] Parviz Birmingham MD, [place] CLIA: [id number] Testosterone Total 568.00 264.00-916.00 ng/dL Sex Hormone Binding Globulin (SHBG) 124.0 19.3-76.4 nmol/L Free Testosterone, Percent 0.76 1.60-2.90 % Free Testosterone (calculation) 43 47-244 pg/mL Testosterone Bioavailable 105 131-682 ng/dL P-Comprehensive Metabolic Pa jonathon (CMP) Reviewed date:05/16/2025 04:13:06 PM Interpretation:Normal Performing Lab: Notes/Report: Test performed by [facility] [address] [place], [place] [address] [address], [address], [place] [id number] Parviz Birmingham MD, [place] CLIA: [id number] Sodium 136 135-145 mmol/L Potassium 4.9 3.5-5.3 [...] Interpretation:Normal Performing Lab: Notes/Report: Test performed by [facility] [address] [place] [address] [address], [place] [address] Parviz Birmingham MD, [place] CLIA: [id number] Folate >20 >4.59 ng/mL P-Lipid Panel Reviewed date:05/16/2025 04:13:06 PM Interpretation:LDL 96 Performing Lab: Notes/Report: Test performed by [facility] [address] [place] [address] [place] [address] Parviz Birmingham MD, [place] CLIA: [id number] Cholesterol 185 <200 mg/dL Triglycerides 57 <150 [...] Results: 96 Units: mg/dL % Change: -3% Reason For Referral Reason referral to [facility] neuro logy for muscle weakness; r/o neuromuscular disorder Diagnosis 1 Muscle weakness (M62 .81) Referral Organization [facility] Referring Provider First Name Michael Renner Referring Provider Last Name Chantelle Referring Provider Speciality Family Enrique keller Referred Provider Neurology, . Referred Provider Specialty Neurology General Notes Heike Iqbal 024 1:12:41 PM > submitted to under [employer] Referral Priority Routine Medications Medication SIG (Take, Route, Frequency, Duration) Notes Start Date End Date Status hydroCHLOROthiazide 12.5 MG Take 1 table t by mouth once daily; Duration: 90 Active Benazepril HCl 20 MG 1 tab(s) orally onc e a day Active amLODIPine Besylate 10 MG 1 tab(s) orall y once a day; Duration: 90 days Active amLODIPine Besylate 10 MG 1 tab(s) orall y once a day Active Benazepril HCl 20 MG 1 tab(s) orally onc e a day; Duration: 90 days Active Multivitamin - 1 tab(s) orally once a day Active Aspirin Adult Low Dose 81 MG 1 tab(s) or ally once a day Active Folic Acid 400 MCG 1 tablet Orally Once a day Active Immunizations Vaccine Route Administration Date Status Comme nts COVID 19 Moderna Unknown 11/16/2020 Administered COVID 19 Moderna Unknown 12/14/2020 Administered COVID 19 Moderna Unknown 06/28/2021 Administered Fluzone High Dose (65yr and older) [...] PNEUMOVAX 23 VACCINE IM Intramuscular 10/30/2022 Administered PNEUMOVAX 23 VACCINE IM Intramuscular 05/13/2025 Administered Prevnar (PCV13) IM Intramuscular 04/05/2020 Administered Problems Problem Type SNOMED Code ICD Code Onset Dates Problem Status W/U Status Risk Notes Problem Essential hypertension (67241104) Essential hypertension (I10) Active confirmed Problem Solitary pulmonary nodule (912387965) Pulmonary nodule seen on imaging study (R91.1) Active confirmed Problem Benign neoplasm of colon (65702190) Adenomatous polyp of colon, unspecified part of colon (D12.6) Active confirmed Problem Testicular hypofunction (561557519) 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) Active confirmed Problem Personal history of primary malignant neoplasm of kidney (819532358) Hx of renal cell cancer (Z85.528) Active confirmed Problem Absent kidney (037756324) 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 Vital Signs Heart Rate 73 /min 05/13/2025 Blood pressure diastolic 72 mm Hg 05/13/2025 Height 72 in 05/13/2025 Blood pressure systolic 120 mm Hg 05/13/2025 Weight 175.0 lbs 05/13/2025 BMI 23.73 kg/m2 05/13/2025 Encounters Encounter Location Date Provider Diagnosis [facility] [address] [facility] [address] [place] [id number] 07/13/2024 R Zurdo Chantelle Low testosterone in male E29.1 [facility] [address] [place] [id number] 07/14/2024 R Zurdo Chantelle Low testosterone in male E29.1 [facility] [address] [place] [id number] 08/20/2024 R Zurdo Chantelle Low testosterone in male E29.1 [facility] [address] [place] [id number] 11/05/2024 R Zurdo Chantelle Prostate cancer screening Z12.5 ; Essential hypertension I10 and Muscle weakness M62.81 [facility] [address] [place] [id number] 05/13/2025 R Zurdo Chantelle Adult general medica l examination Z00.00 ; Prostate cancer screening Z12.5 ; Essential hypertension I10 ; Muscle weakness M62.81 ; Cognitive changes R41.89 ; Degeneration of intervertebral disc of lumbar region, unspecified whether pain present M51.369 ; BMI 23.0-23.9, adult Z68.23 ; Hx of renal cell cancer Z85.528 and Status post nephrectomy Z90.5 [facility] [address] [place] [id number] 07/13/2024 R Zurdo Chantelle Low testosterone E29 .1 [facility] [address] [place] [id number] 07/16/2024 R Zurdo Chantelle [facility] [address] [place] [id number] 08/27/2024 Michael Lockhart Muscle weakness M62. 81 [facility] [address] [place] [id number] 11/09/2024 Michael Lockhart [facility] [address] [facility] [address] [place] [id number] 05/16/2025 Michael Lockhart Assessments Encounter Date Diagnosis (ICD Code) Assessment [...] Z12.5) 07/13/2024 Low testosterone (ICD-10 - E29.1) 05/13/2025 Prostate cancer screening (ICD-10 - Z12.5) 05/13/2025 Adult general medical examination (ICD-10 - Z00.00) Patient instructed to return to office Annually for Annual Wellness Visits to include annual screenings of Pain assessment, Functional Ability assessment, Cognitive Ability assessment, Fall Risk assessment, Depression screening and Bladder control screening. 07/13/2024 Low testosterone in male (ICD-10 - E29.1) 11/05/2024 Muscle weakness (ICD-10 - M62.81) Continue follow-up with neurology 05/13/2025 Essential hypertension (ICD-10 - I10) 05/13/2025 [...] (ICD-10 - Z90.5) left Plan Of Treatment Next Appt Details Provider Name:Michael Soto, 11/16/2025 09:45:00 AM, [address], [address], [place], [id number], Insurance Providers Payer Name Payer Address Payer Phone Subscriber Number Group Number Insured Name Patient Relationship to Insured Coverage Start Date Coverage End Date MEDICARE PART B [address] [address] [place] [id number] ELISE NIEVES Self - patient is the insured [facility] [employer] [address] [place] [address] [id number] EZEQUIEL ELISE Self - patient is the insured Medical (General) History Medical History History ICD Code HTN 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 - asymptomatic renal carcinoma cervical spine fusion Kidney stones broken ribs on left side Adenomatous colon polyps Testosterone deficiency Peripheral neuropathy by EMG testing wit h Neurology DJD/DDD lumbar spine by MRI 2024 Surgical History Surgery Date(Month/Year) left nephrectomy December 2005 stent for aortic arch and descending aor tic dissection Oct 2005 Cervical Spinal Fusion Aug 2010 cataract surgery both eyes 10/2015 lithotripsy 2004 C-scope/normal 2007 C-scope/ multiple adenomatous polyps/ Dr Jasbir Leonard 06/2018 C-scope/ polyps/ Jia 12/2018 C-scope/ Kavon/ polyp x 2 09/2021 C-scope/ Dr. Birch/ mild diverticulosis; no polyps 05/31/22 Hospitalization History Reason Date(Month/Year) [facility]-stomach pain 07/2019 [facility] ER-broken ribs, left side 09/12/17
== END 2025-06-17 23:59 | disposition home or self-care (01) ==
LOC: RAD 14:13
PROVIDERS: PCP Family Medicine; Visit Provider Nurse Practitioner Family
DX: M99.71 Connective tissue and disc stenosis of intervertebral foramina of cervical region (principal); M43.22 Fusion of spine, cervical region; M62.81 Muscle weakness (generalized); R26.89 Other abnormalities of gait and mobility
CPT/HCPCS: 72141

== ENCOUNTER 2025-07-02 07:34 | Outpatient (CLI) | payer MEDICARE, SELFPAY ==
--- OUTSIDE RECORDS SUMMARY | 2025-06-02 10:00 | XMS_ITS | Encounter Summary ---
Author Organization Healthcare Address [address] [place] [address] Care Team Providers Care Police Communications Dispatcher Name Role Phone Ortiz Lockhart MD Primary Care Provider +1- [phone] Reason for Referral * Imaging (Routine) - Authorized Specialty Diagnoses / Procedures Referred By Phoebe corley Referred To Contact Diagnoses Unstable balance Muscle weakness (generalized) Procedures MR Cervical Spine wo IV Contrast 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 APRN [address] [address] Phone: tel: fax: Referral ID Status Reason Start Date Expiration Date V isits Requested Visits Authorized [id number] Authorized 06/02/2025 12/02/2026 1 1 Reason for Visit * Reason Comments Sleeping Problem * Consultation (Routine) - Closed Specialty Diagnoses / Procedures Referred By Phoebe t Referred To Contact Neurosurgery Diagnoses Lumbosacral radiculopathy Christian Beard MD [address] [facility] [address] [place] [address] Phone: tel: fax: [place] [facility] [address] [place] [address] Phone: tel: fax: Referral ID Status Reason Start Date Expiration Date V isits Requested Visits Authorized [id number] Closed Specialty Services Required 04/26/2025 10/26/2026 1 1 Encounter Details Date Type Department Care Team (Late st Contact Info) Description 06/02/2025 10:00 AM EDT Consult [place] [facility] [address], [address] [place] [address] 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, SAFETY ADVISOR [address] [place] [address] History of fusion of cervical spine (Primary Dx); Unstable balance; Muscle weakness (generalized) Social History Tobacco Use Types Packs/Day Years [...] Sign Reading Time Taken Comments Blood Pressure 135/88 06/02/2025 10:04 AM EDT Pulse 71 06/02/2025 10:04 AM EDT Temperature - - Respiratory Rate - - Oxygen Saturation 100% 06/02/2025 10:04 AM EDT Inhaled Oxygen Concentration - - Weight 79.4 kg (175 lb) 06/02/2025 10:04 AM EDT Height 185.4 cm (6' 1 ) 06/02/2025 10:04 AM EDT Body Mass Index 23.09 06/02/2025 10:04 AM EDT documented in this encounter Miscellaneous Notes * Progress Notes - 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, JUAN - 06/02/2025 10:00 AM EDT We had the pleasure of seeing your patient in our clinic today for Neurosurgical consultation. We personally reviewed 20 pages of new patient referral paperwork that was sent to the clinic. Chief Complaint Bilateral thigh weakness History Of Present Illness Danilo Butterfield is a 85 y.o. male presents to the neurosurgical clinic today for consultation regardingbilateral thigh weakness and balance instability. After reviewing neurology's notes, it appears thepatient was sent here for potential lumbar pathology due to bilateral thigh weakness and balance instability. He had an EMG-NCV which demonstrated a polyneuropathy; however, from the Neurology note it was thought to be more of a lumbar radiculopathy component instead of polyneuropathy. He is havinga burning and aching sensation in the bilateral lower extremities from the anterior thigh to the calf. He denies any lumbar radicular pain or low back pain. He does note subjective weakness in the bia ateral thighs. He denies overt numbness in the lower extremities. He does note some troublesome balance issues, and uses a standing walker for balance instability. The patient denies any difficulty with fine motor skills. He does note mild bilateral upper extremity numbness. Denies any pain in the upper extremities or neck pain. He does have a history of a C3-7 fusion that was completed in 2009 in [place]. He is unsure what his symptoms were prior to surgery. The patient did complete physical therapy for 3-4 months from November to March 02, 2025 without appreciable benefit in his back. He has not done any epidural steroid injections. Past Medical History He has a past medical history of Cancer ([facility]) (October 2005), Dementia ([facility]), Difficulty walking, Hypertension, Memory loss, Tremor, and Weakness of limb. Surgical History He has a past surgical history that includes Vascular surgery (October 2005); Cervical fusion; Descending aortic aneurysm repair w/ stent (Right, 10/2005); and Nephrectomy (Left, 12/2005). Family History Family History[1] Social History He reports that he has never smoked. He has never used smokeless tobacco. He reports current alcohol use of about 28.0 standard drinks of alcohol per week. He reports that he does not use drugs. Medications Current Medications[2] Allergies Patient has no known allergies. Review of Systems 14 point review of systems was performed and was negative except as noted per HPI. Physical Exam General: No acute distress. Patient is appropriate historian and cooperative throughout exam. Well nourished, well groomed. Psych: Normal affect Head: Unremarkable Eyes:Unremarkable ENT: Unremarkable CV: Regular rate Chest: No wheezing, coughing. No increased effort noted. Skin: Intact. Vasc: Warm extremities Musc: Normal gait, no weakness or spasticity. Good spinal alignment without focal tenderness to palpation. Symmetrical extremity tone and bulk, no atrophy noted. Neurologic exam: Alert and oriented x3. Appropriate memory, attention span, and insight. Normal coordination noted. Strength 5/5 bilaterally in upper and lower extremities; 3/5 right biceps. No tremor noted. Biceps, triceps, brachioradialis, patellar, achilles reflexes symmetric and 2+ bilaterally. Sensation, including light touch, intact bilaterally. Negative Tom's bilaterally. No clonus noted bilaterally. Last Recorded Vitals Visit Vitals Ht 1.854 m (6' 1 ) Wt 79.4 kg (175 lb) BMI 23.09 kg/m?? Smoking Status Never BSA 2.02 m?? Labs No lab exists for component: ALB Imaging I personally reviewed and independently interpreted MRI of the lumbar spine from March 24, 2025. Imaging demonstrates at L2-3, bilateral lateral recess narrowing, as well as iovy-ba-yavcenbl central canal stenosis. at L3-4 facet hypertrophy as well as a broad-based disc bulge that contributes to moderate central canal stenosis. There is also moderate central canal stenosis noted at L4-5. Assessment and Plan Danilo Butterfield is a 85 y.o. male presents to the neurosurgical clinic today for consultation regardingbilateral thigh weakness and balance instability. Imaging was reviewed in his noted above. At this time, the patient does have subjective weakness in his lower extremities as well as objective upper extremity weakness in the right bicep. Given his previous cervical fusion history, would balance instability I have ordered an MRI of the cervical spine to rule out any spinal cord compression that could be contributing to the patient's symptoms. The patient will contact me once this is complete, soI can get the imaging and review. Red flag signs and symptoms were discussed with the patient and his spouse, and they will contact the clinic if they have any issues or concerns prior to them. The patient was given the opportunity to ask questions all of which were answered to their satisfaction and is agreeable to the plan of care. This note was dictated using voice to text software and may contain minor errors Snehal Calhoun APRN Division of Neurosurgery [facility] [1] Family History Problem Relation Name Age of Onset Stroke Father Lloyd Butterfield [2] Current Outpatient Medications Medication Sig Dispense Refill amLODIPine (Norvasc) 10 MG tablet Take 1 tablet (10 mg) by mouth 1 (one) time each day. ASPIRIN 81 MG chewable tablet Chew 1 tablet (81 mg) 1 (one) time each day. benazepril (Lotensin) 20 MG tablet Take 1 tablet (20 mg) by mouth 1 (one) time each day. hydroCHLOROthiazide (Microzide) 12.5 MG capsule Take 1 capsule (12.5 mg) by mouth 1 (one) time eachday. Multiple Vitamin (multivitamin) tablet Take 1 tablet by mouth 1 (one) time each day. tzkospjtyrne-qfmikhee-xgzqf acid-coenzyme q10 (Preservision AREDS 2) capsule Take 2 capsules by mouth. No current facility-administered medications for this visit. documented in this encounter Plan of Treatment Upcoming Encounters Date Type Department Care Team (Late st Contact Info) Description 07/06/2025 9:30 AM EDT Consult [facility] [address], [address] [place] [address] Lexi Pyle MD [address] [facility] [address] [place] [address] Scheduled Orders Name Type Priority Associated Diagnoses Orde r Schedule MR Cervical Spine wo IV Contrast Imaging Routine Unstable balance Muscle weakness (generalized) Expected: 07/03/2025, Expires: 12/04/2026 documented as of this encounter Results * XR Cervical Spine Complete 4 To 5 Views (06/02/2025 11:08 AM EDT) Anatomical Region Laterality Modality Spine, C-spine Digital Radiogra phy Impressions 06/02/2025 11:41 AM EDT Expected postoperative changes of anterior cervical discectomy and fusion from C3 to C7. Hardware complication. CRITICAL RESULT: No. COMMUNICATION: Per this written report. Drafted by Isaiah Fisher MD on 06/02/2025 11:40 AM Final report signed by Isaiah Fisher MD on 06/02/2025 11:41 AM Narrative 06/02/2025 11:41 AM EDT CLINICAL INDICATION: hx of cervical fusion TECHNIQUE: XR CERVICAL SPINE COMPLETE 4 TO 5 VIEWS COMPARISON: None. FINDINGS: 4 views of the cervical spine show anterior cervical discectomy and fusion from C3 to C7 without hardware complication. Vertebral alignment is normal. No instability in flexion or extension. No fracture or bone destruction. Prevertebral soft tissues and lung apices are normal. Right carotid artery calcification. Procedure Note Isaiah Fisher MD - 06/02/2025 CLINICAL INDICATION: hx of cervical fusion TECHNIQUE: XR CERVICAL SPINE COMPLETE 4 TO 5 VIEWS COMPARISON: None. FINDINGS: 4 views of the cervical spine show anterior cervical discectomy and fusionfrom C3 to C7 without hardware complication. Vertebral alignment isnormal. No instability in flexion or extension. No fracture or bonedestruction. Prevertebral soft tissues and lung apices are normal. Rightcarotid artery calcification. IMPRESSION: Expected postoperative changes of anterior cervical discectomy and fusionfrom C3 to C7. Hardware complication. CRITICAL RESULT: No. COMMUNICATION: Per this written report. Drafted by Isaiah Fisher MD on 06/02/2025 11:40 AM Final report signed by Isaiah Fisher MD on 06/02/2025 11:41 AM 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 SAFETY ADVISOR IMG XR PROCEDURES Final Result documented in this encounter Visit Diagnoses Diagnosis History of fusion of cervical spine- Primary Arthrodesis status Unstable balance Abnormality of gait Muscle weakness (generalized) Unstable balance Abnormality of gait Muscle weakness (generalized) documented in this encounter Additional Health Concerns Assessment Noted Time PHQ-9 Depression Total Score: 0 10/29/19 25 10:26 AM EST A fall risk assessment has been complete d for the patient 06/02/2025 10:11 AM EDT A Body Mass Index follow-up plan has been documented for the patient 06/02/2025 12:40 PM EDT documented as of this encounter Care Teams Police Communications Dispatcher Relationship Specialty Start Date End Date Ortiz Lockhart MD [address] [place] [address] PCP - General 09/02/24 documented as of this encounter
--- OUTSIDE RECORDS SUMMARY | 2025-06-02 10:37 | XMS_ITS | Encounter Summary ---
Author Organization Healthcare Address [address] [place] [address] Care Team Providers Care Automation Tech Name Role Phone Ortiz Lockhart MD Primary Care Provider +1- [phone] Encounter Details Date Type Department Care Team (Latest Contact Info) Description 06/02/2025 10:37 AM EDT - 06/02/2025 11:59 PM EDT Hospital En[facility] [address] [place] [address] Unstable balance; Muscle weakness (generalized) Discharge Disposition: Home or Self Care Social History Tobacco Use Types Packs/Day Years [...] PM EST documented as of this encounter Medications at Time of Discharge amLODIPine (Norvasc) 10 MG tablet Take 1 tablet (10 mg) by mouth 1 (one) time each day. 10/14/2001 ASPIRIN 81 MG chewable tablet Chew 1 tablet (81 mg) 1 (one) time each day. benazepril (Lotensin) 20 MG tablet Take 1 tablet (20 mg) by mouth 1 (one) time each day. 10/14/2001 hydroCHLOROthiazi de (Microzide) 12.5 MG capsule Take 1 capsule (12.5 mg) by mouth 1 (one) time each day. 10/14/2019 Multiple Vitamin (multivitamin) tablet Take 1 tablet by mouth 1 (one) time each day. multivitamin-mine rals-folic acid-coenzyme q10 (Preservision AREDS 2) capsuleIndication s:pt stated he takes vision shield brand daily Take 2 capsules by mouth. documented as of this encounter Plan of Treatment Upcoming Encounters Date Type Department Care Team (Late st Contact Info) Description 07/06/2025 9:30 AM EDT Consult [place] [facility] [address] [place] [address] Lexi Pyle MD [address] [place] [address] documented as of this encounter Procedures Procedure Name Priority Date/Time Associated Diagnosis Comments XR CERVICAL SPINE COMPLETE 4 TO 5 VIEWS Routine 06/02/2025 11:08 AM EDT Unstable balance Muscle weakness (generalized) documented in this encounter Results * XR Cervical Spine [...] MD on 06/02/2025 11:41 AM 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 GAS SPECIALIST IMG XR PROCEDURES Final Result documented in this encounter Visit Diagnoses Diagnosis Unstable balance Abnormality of gait Muscle weakness [...] documented as of this encounter Care Teams Automation Tech Relationship Specialty Start Date End Date Ortiz Lockhart MD [address] [place] [address] PCP - General 09/02/24 documented as of this encounter
--- NOTE | 2025-07-02 07:37 | CT_ITS ---
FINAL REPORT TECHNIQUE: Thin section axial CT with sagittal reconstruction without contrast of the cervical spine. This study was performed with techniques to keep radiation doses as low as reasonably achievable, (ALARA). Individualized dose reduction techniques using automated exposure control or adjustment of mA and/or kV according to the patient's size were employed. CLINICAL HISTORY: UNSTABLE BALANCE/ HX FUSION OF C SPINE COMPARISON: MRI C-spine dated 06/17/2025 FINDINGS: There are postoperative changes from anterior fusion C3-C7. There is minimal anterolisthesis at C7-T1. There is generalized osteopenia. No fracture. No bony canal stenosis. There is bony neural foraminal narrowing on the right at C2-3, bilaterally at C3-4, bilaterally at C5-6, and on the right at C7-T1. Please refer to recent MR of the cervical spine for abnormalities related to the disc and/or cord. IMPRESSION: Postoperative changes mid and lower cervical fusion. Degenerative subluxation C7-T1. Multilevel bony neural foraminal narrowing as above. Reviewed, Interpreted and Dictated by Jasmina Hsu MD Transcribed by Pamella Nickerson Authenticated and [facility]
--- OUTSIDE RECORDS SUMMARY | 2025-07-02 07:39 | XMS_ITS | Clinical Summary ---
Author Organization Healthcare Address [address] [place] [address] Care Team Providers Care Traveling Operator Name Role Phone Ortiz Lockhart MD Primary Care Provider +1- [phone] Allergies No known active allergies Medications amLODIPine [...] Encounters Date Type Department Care Team Description 06/17/2025 Orders Only External Location [address] [place] [address] 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, MEDICAL DONATION PROFESSIONAL 06/17/2025 Telephone [place] [facility] [address] [place] [address] 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, MEDICAL DONATION PROFESSIONAL 06/02/2025 10:37 AM EDT - 06/02/2025 11:59 PM EDT Hospital Encounter [facility] [address], [address] [place] [address] Unstable balance; Muscle weakness (generalized) Discharge Disposition: Home or Self Care 06/02/2025 10:00 AM EDT Consult [facility] [address] [place] [address] 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, MEDICAL DONATION PROFESSIONAL History of fusion of cervical spine (Primary Dx); Unstable balance; Muscle weakness (generalized) 06/02/2025 Travel from Last 3 Months Immunizations Immunization [...] 06/02/2025 10:04 AM EDT Plan of Treatment Upcoming Encounters Date Type Department Care Team (Late st Contact Info) Description 07/06/2025 9:30 AM EDT Consult [place] [facility] [address] [place] [address] Lexi Pyle MD [address] [place] [address] Health Maintenance Due Date Last Done Comments [facility]-Medicare Annual Wellness (AWV) 1941 [facility]-/Child/Adol SDOH Screenings 1941 [facility]- SDOH Screenings 1959 [facility]-Adult SDOH Screenings 1959 [facility]-DTaP,Tdap,and Td Vaccines (1 - Tdap) 1960 [facility]-Zoster Vaccines (1 of 2) 1991 [facility]-RSV Vaccine: 60+ Years or (1 - 1-dose 75+ series) 2016 [id number] Vaccine ( - season) 2025 06/28/2021, 12/14/2020, 11/16/2020 [facility]-Influenza Vaccine (#1) 06/14/202508/04, [...] Procedure Name Priority Date/Time Associated Diagnosis Comments MR OUTSIDE IMAGES 06/17/2025 2:2 5 PM EDT XR CERVICAL SPINE COMPLETE 4 TO 5 VIEWS Routine 06/02/2025 11:08 AM EDT Unstable balance Muscle weakness (generalized) from Last 3 Months Results * MR transfer of outside films (06/17/2025 2:25 PM EDT) Anatomical Region Laterality Modality Magnetic Resonan ce 06/17/2025 2:25 PM EDT 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 MEDICAL DONATION PROFESSIONAL IMG MRI PROCEDURES Caitlyn l Result * XR Cervical Spine Complete 4 To [...] MD on 06/02/2025 11:41 AM 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 MEDICAL DONATION PROFESSIONAL IMG XR PROCEDURES Final Result from Last 3 Months [place] [address] MEDICARE [facility] Care Teams Traveling Operator Relationship Specialty Start Date End Date Ortiz Lockhart MD [address] [place] [address] PCP - General 09/02/24
--- OUTSIDE RECORDS SUMMARY | 2025-07-02 07:39 | XMS_ITS | Encounter Summary ---
Author Organization Healthcare Address [address] [place] [address] Care Team Providers Care Venetian Blind Cleaner And Repairer Name Role Phone Ortiz Lockhart MD Primary Care Provider +1- [phone] Encounter Details Date Type Department Care Team [...] Consult [place] [facility] [address], [address] [place] [address] Lexi Pyle MD [address] [place] [address] documented as of this encounter Visit Diagnoses [...] documented as of this encounter Care Teams Venetian Blind Cleaner And Repairer Relationship Specialty Start Date End Date Ortiz Lockhart MD [address] [place] [address] PCP - General 09/02/24 documented as of this encounter
--- OUTSIDE RECORDS SUMMARY | 2025-07-02 07:39 | XMS_ITS | Encounter Summary ---
Author Organization Healthcare Address [address] [place] [address] Care Team Providers Care Band Presser Name Role Phone Ortiz Lockhart MD Primary Care Provider +1- [phone] Encounter Details Date Type Department Care Team (Late Contact Info) Description 06/17/2025 Orders Only External Location [address] [place] [address] 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, CHIN STRAP CUTTER [address] [place] [address] Social History Tobacco Use Types [...] Consult [place] [facility] [address] [place] [address] Lexi Pyle MD [address] [place] [address] documented as of this encounter Procedures Procedure Name Priority Date/Time Associated Diagnosis Comments MR OUTSIDE IMAGES 06/17/2025 2:25 PM EDT documented in this encounter Results * MR transfer of outside films (06/17/2025 2:25 PM EDT) Anatomical Region Laterality Modality Magnetic Resonan ce 06/17/2025 2:25 PM EDT us 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 CHIN STRAP CUTTER IMG MRI PROCEDURES Caitlyn l Result documented in this encounter Visit Diagnoses Not on filedocumented [...] documented as of this encounter Care Teams Band Presser Relationship Specialty Start Date End Date Ortiz Lockhart MD [address] [place] [address] PCP - General 09/02/24 documented as of this encounter
--- OUTSIDE RECORDS SUMMARY | 2025-07-02 07:39 | XMS_ITS | Encounter Summary ---
Author Organization [facility] Address [address] [place] [address] Care Team Providers Care Strip Polisher Name Role Phone Ortiz Lockhart MD Primary Care Provider +1- [phone] Reason for Referral * Imaging (Urgent) - Authorized Specialty Diagnoses / Procedures Referred By Contac t Referred To Contact Diagnoses Unstable balance History of fusion of cervical spine Procedures CT Cervical Spine wo IV Contrast 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 APRN [address] [facility] [address] [place] [address] Phone: tel: fax: Referral ID Status Reason Start Date Expiration Date V isits Requested Visits Authorized [id number] Authorized 06/18/2025 12/18/2026 1 1 Encounter Details Date Type Department Care Team (Late st Contact Info) Description 06/17/2025 Telephone [facility] [address], [address] [place] [address] 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 APRN [address] [place] [address] Social History Tobacco Use Types [...] encounter Miscellaneous Notes * Telephone Encounter - 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 APRN - 06/18/2025 9:54 AM EDT Called and spoke with patient and , 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 I am going to order a CT scan at [facility] and have them fu with Complex spine. Linn, do you mind to get him scheduled in the next couple weeks? He is pretty weak. I told them to r/s if they have not had the CT scan done. * Telephone Encounter - Kike Antonio - 06/17/2025 4:28 PM EDT Patient Phone Message Reason for Call: Patient calling to let 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 know MRI was completed today at [facility] Best contact number and optimal time of day to reach caller: [phone] Note: Please do not reply to this message. Follow-up communication and further actions as a result of this message need to be communicated with the patient directly, if the patient is not active onMyChart. If the patient is active on MyChart, they will receive notification of the communication/outcome via MyChart. documented in this encounter Plan of Treatment Upcoming Encounters Date Type Department Care Team (Late st Contact Info) Description 07/06/2025 9:30 AM EDT Consult [place] [facility] [address] [place] [address] Lexi Pyle MD [address] [place] [address] Scheduled Orders Name Type Priority Associated Diagnoses Orde r Schedule CT Cervical Spine wo IV Contrast Imaging STAT Unstable balance History of fusion of cervical spine 1 Occurrences starting 06/18/2025 until 12/20/2026 documented as of this encounter Visit Diagnoses Diagnosis Unstable balance- Primary Abnormality of gait History of fusion of cervical spine Arthrodesis status documented in this encounter Additional Health Concerns Assessment Noted Time PHQ-9 Depression Total Score: 0 10/29/19 25 10:26 AM EST A fall risk assessment has been complete d for the patient 06/02/2025 10:11 AM EDT A Body Mass Index follow-up plan has been documented for the patient 06/02/2025 12:40 PM EDT documented as of this encounter Care Teams Strip Polisher Relationship Specialty Start Date End Date Ortiz Lockhart MD [address] [place] [address] PCP - General 09/02/24 documented as of this encounter
== END 2025-07-02 23:59 | disposition home or self-care (01) ==
LOC: RAD 07:35
PROVIDERS: PCP Family Medicine; Visit Provider Nurse Practitioner Family
DX: S13.180A Subluxation of C7/T1 cervical vertebrae, initial encounter (principal); M99.71 Connective tissue and disc stenosis of intervertebral foramina of cervical region; R26.89 Other abnormalities of gait and mobility; Z98.1 Arthrodesis status
CPT/HCPCS: 72125